=== PATIENT | male | born 2000 | race Hispanic/Latino ===

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

== ENCOUNTER 2021-05-27 09:41 | Inpatient (IN) | payer OTHER ==
[2021-05-27] MEDS ORDERED: FOSPHENYTOIN PE 500 MG/10 ML VIAL ONE (10:27)
[2021-05-27] MEDS ORDERED: NA CHLORIDE 0.9% 100 ML ONE (10:28)
[2021-05-27 10:30] LABS: Basophils % 0.2 % (0-1.3); Hematocrit 48.7 % (39.6-49.0); Lymphocytes % 7.3 % (15.3-44.8); MPV 8.6 fL (7.6-11.3); RBC Red Blood Cell Count 5.02 M/uL (4.33-5.43)
[2021-05-27 10:35] LABS: Protime INR 1.19
[2021-05-27] MEDS ORDERED: NA CHLORIDE 0.9% 1,000 ML ONE ×3 (10:38→20:47)
[2021-05-27 10:40] LABS: Barbiturates NEGATIVE (NEGATIVE); Benzodiazepines NEGATIVE (NEGATIVE); Cocaine NEGATIVE (NEGATIVE); METHAMPHETAM NEGATIVE (NEGATIVE); Methadone NEGATIVE (NEGATIVE); Opiates NEGATIVE (NEGATIVE); Phencyclidine NEGATIVE (NEGATIVE); THC Cannibis NEGATIVE (NEGATIVE)
--- NOTE | 2021-05-27 10:54 | RAD REPORT ---
EXAM DESCRIPTION: CT - Head Brain Wo Cont - 05/27/2021 10:43 am CLINICAL HISTORY: SEIZURE COMPARISON: Head Brain Wo Cont dated 02/25/2019; Head Brain Wo Cont dated 01/06/2019 TECHNIQUE: All CT scans are performed using dose optimization technique as appropriate and may inclu de automated exposure control or mA/KV adjustment according to patient size. FINDINGS: No intracranial hemorrhage, hydrocephalus or extra-axial fluid collection.No areas of brai n edema or evidence of midline shift. The paranasal sinuses and mastoids are clear. The calvarium is intact. IMPRESSION: No acute intracranial abnormality.
--- NOTE | 2021-05-27 11:04 | ER ---
Nurse's Notes [facility] Name: Sander Nunez Age: 20 yrs Sex: Male : 2000 Arrival Date: 05/27/2021 Time: 09:51 Bed 17 Private MD: Diagnosis: Epilepsy, unspecified, not intractable, with status epilepticus;Other psychoactive substance abuse-BENADRYL;Hypokalemia;Elevated white blood cell count;Acute kidney failure, unspecified-prerenal Presentation: 05/27 09:49 Risk Assessment: Do you want to hurt yourself or someone else? Patient reports no tc5 desire to harm self or others. Onset of symptoms was May 27, 2021 at 08:30. 09:49 Acuity: QUE 2 tc5 11:23 Chief complaint: EMS states: seizure witnessed by dad. Coronavirus screen: Vaccine tc5 status: Patient reports being unvaccinated. At this time, the client does not indicate any symptoms associated with coronavirus-19. Ebola Screen: No symptoms or risks identified at this time. 11:23 Method Of Arrival: EMS tc5 Triage Assessment: 11:34 General: Appears distressed, slender, well groomed, Behavior is cooperative, agitated, tc5 anxious, restless. Pain: Denies pain. Neuro: Seizure activity reported prior to arrival. Type of seizure: grand mal seizure. Patient is post-ictal at this time. Cardiovascular: ST on tele.. Respiratory: No deficits noted. GI: No deficits noted. : No deficits noted. Derm: No deficits noted. - Family history:: not pertinent. Screenin:01 Abuse screen: dad states pt does not want to harm himself, he just has trouble tc5 sleeping. states he was manic last night, but calmed down and played with his turtle, then dad woke up to pt seizing in the bathroom this am and called the ambulance. Assessment: 11:36 General: Appears At bedside evaluation of pt, Dad at bedside, pt begins to seize, staff tc5 assist called, give verbal orders, Terry RN assist with orders and medication admin, pt seized for approximately 2 min, 02 15 LPM NRB applied during seizure. Pt dad reports pt had Possibly half the bottle of OTC sleeping pills and one dose of powder asprin because the pt has ADHD and trouble sleeping. Pt dad further reports that pt has had seizure like this when he overdosed on a lot of nutmeg the spice. Pt bleeding from the tongue, appears he bit it during the seizure.. Pain: Denies pain. Vital Signs: 09:49 BP 159 / 111; Pulse 150; Resp 22; Temp 99.3; Pulse Ox 100% ; Weight 65.77 kg; Height 5 tc5 ft. 7 in. (170.18 cm); Pain 0/10; 10:00 BP 186 / 112; Pulse 153; Resp 8; tc5 10:15 BP 148 / 78; Pulse 135; Resp 12; Pulse Ox 100% 15 lpm ; tc5 11:00 BP 121 / 71; Pulse 110; Resp 15; Pulse Ox 100% 15 lpm ; tc5 11:45 BP 113 / 53; Pulse 106; Resp 16; Pulse Ox 98% ; tc5 09:49 Body Mass Index 22.71 (65.77 kg, 170.18 cm) tc5 ED Course: 09:51 Patient arrived in ED. cecil 09:51 Ryan Calzada MD is Attending Physician. cecil 10:11 Mary Carmen Gamez, RN is Primary Nurse. tc5 10:38 Ann cath inserted, using sterile technique, 16 Fr., by ma, balloon inflated, urine mh5 specimen collected. 10:38 Initial lab(s) drawn, by ED staff, sent to lab. Urine collected: Ann catheter mh5 specimen, clear, EKG done, by ED staff, reviewed by Ryan Calzada MD COVID swab sent to lab. Inserted saline lock: 20 gauge in right antecubital area, using aseptic technique. Blood collected. 10:39 Patient has correct armband on for positive identification. Placed in gown. Bed in low mh5 position. Call light in reach. Side rails up X2. Adult w/ patient. Warm blanket given. hall monitor on. Pulse ox on. NIBP on. 10:40 NT PRO-BNP Sent. mh5 10:41 Magnesium Sent. mh5 10:41 Liver (Hepatic) Function Sent. mh5 10:41 Basic Metabolic Panel Sent. mh5 10:41 Acetaminophen Sent. mh5 10:41 ETOH Level Sent. mh5 10:41 Basic Metabolic Panel Sent. mh5 10:41 CBC with Diff Sent. mh5 10:41 LFT's Sent. mh5 10:41 Magnesium Sent. mh5 10:41 NT PRO-BNP Sent. mh5 10:42 XRAY Chest (1 view) Sent. mh5 10:42 Troponin (emerg Dept Use Only) Sent. mh5 10:43 CT Head Brain wo Cont In Process Unspecified. EDMS 10:52 XRAY Chest (1 view) In Process Unspecified. EDMS 11:01 Filipe Garcia DO is Hospitalizing Provider. [facility] 11:34 Triage completed. tc5 05/28 01:44 Chem 7 Sent. wg Administered Medications: 05/27 09:59 Drug: Ativan (LORazepam) 2 mg Route: IVP; Site: right antecubital; oh 10:57 Follow up: Response: No adverse reaction; Marked relief of symptoms tc5 09:59 Drug: Fosphenytoin 1 grams Route: IVPB; Site: right antecubital; oh 10:56 Follow up: IV Status: Completed infusion; IV Intake: 100ml tc5 10:58 Drug: NS 0.9% 1000 ml Route: IV; Rate: 1 bolus; Site: right antecubital; tc5 17:44 Drug: Potassium Chloride 20 mEq Route: IV; Rate: per protocol; Site: right antecubital; tc5 17:45 Drug: NS 0.9% 1000 ml Route: IV; Rate: 1 bolus; Site: right antecubital; tc5 Intake: 10:56 IV: 100ml; Total: 100ml. tc5 Outcome: 11:03 Decision to Hospitalize by Provider. [facility] 05/29 02:00 Admitted to Med/surg accompanied by nurse, family with patient, via stretcher, room cc4 [id number], Report called to DEN Yip. 03:50 Patient left the ED. cc4 Signatures: Dispatcher [employer] Ryan Smith MD MD cha Martinez, Maria [facility] Shayne Obrien, DEN Zaida Hurt RN RN 4 Terry Youngblood RN RN ak Mary Carmen Gamez RN RN 5
--- NOTE | 2021-05-27 11:04 | EDPHYS ---
Physician Documentation [facility] Name: Sander Nunez Age: 20 yrs Sex: Male : 2000 Arrival Date: 05/27/2021 Time: 09:51 Bed 17 Private MD: CARA Physician Ryan Calzada HPI: 05/27 10:23 This 20 yrs old Male presents to ER via Unassigned with complaints of cecil seizures, on sleep aide. 10:23 The patient presents with a history of multiple seizures, a total of 2. Character of cecil seizure(s): Loss of consciousness: the patient experienced loss of consciousness, Motor activity: generalized, Incontinence: none, Apnea: the patient did not experience apnea, Circulation: the patient did not experience evidence of pulse disturbance. Seizure onset: just prior to arrival, this morning. Context: the seizure(s) was witnessed, by family, father. Seizure Hx: the patient has no previous seizure history. Associated injury: The patient did not suffer any apparent associated injury. EMS care: none. Current symptoms: confusion. The patient has not experienced similar symptoms in the past. - Family history:: not pertinent. ROS: 10:23 Constitutional: Negative for fever, chills, and weight loss, Eyes: Negative for injury, cecil pain, redness, and discharge, ENT: Negative for injury, pain, and discharge, Neck: Negative for injury, pain, and swelling, Respiratory: Negative for shortness of breath, cough, wheezing, and pleuritic chest pain, Abdomen/GI: Negative for abdominal pain, nausea, vomiting, diarrhea, and constipation, Back: Negative for injury and pain, : Negative for injury, bleeding, discharge, and swelling, MS/Extremity: Negative for injury and deformity, Skin: Negative for injury, rash, and discoloration, Psych: Negative for depression, anxiety, suicide ideation, homicidal ideation, and hallucinations, Allergy/Immunology: Negative for hives, rash, and allergies, Endocrine: Negative for neck swelling, polydipsia, polyuria, polyphagia, and marked weight changes, Hematologic/Lymphatic: Negative for swollen nodes, abnormal bleeding, and unusual bruising. 10:23 Cardiovascular: Positive for palpitations. 10:23 Neuro: Positive for seizure activity. Exam: 10:23 Constitutional: This is a well developed, well nourished patient who is awake, alert, cecil and in no acute distress. Head/Face: Normocephalic, atraumatic. Eyes: Pupils equal round and reactive to light, extra-ocular motions intact. Lids and lashes normal. Conjunctiva and sclera are non-icteric and not injected. Cornea within normal limits. Periorbital areas with no swelling, redness, or edema. ENT: Nares patent. No nasal discharge, no septal abnormalities noted. Tympanic membranes are normal and external auditory canals are clear. Oropharynx with no redness, swelling, or masses, exudates, or evidence of obstruction, uvula midline. Mucous membranes moist. Neck: Trachea midline, no thyromegaly or masses palpated, and no cervical lymphadenopathy. Supple, full range of motion without nuchal rigidity, or vertebral point tenderness. No Meningismus. Chest/axilla: Normal chest wall appearance and motion. Nontender with no deformity. No lesions are appreciated. Abdomen/GI: Soft, non-tender, with normal bowel sounds. No distension or tympany. No guarding or rebound. No evidence of tenderness throughout. Back: No spinal tenderness. No costovertebral tenderness. Full range of motion. Male : Normal genitalia with no discharge or lesions. Skin: Warm, dry with normal turgor. Normal color with no rashes, no lesions, and no evidence of cellulitis. MS/ Extremity: Pulses equal, no cyanosis. Neurovascular intact. Full, normal range of motion. Psych: Awake, alert, with orientation to person, place and time. Behavior, mood, and affect are within normal limits. 10:23 Cardiovascular: Rate: tachycardic, Rhythm: regular, Pulses: Pulses are 4+ in bilateral radial, brachial, femoral, popliteal, posterior tibial and and dorsalis pedis arteries.. Heart sounds: normal, Edema: is not appreciated, JVD: is not appreciated. 10:23 Neuro: Orientation: Not oriented to person, place, time, situation, Mentation: slow to respond, confused, Memory: unable to test, Cranial nerves: grossly normal, is grossly normal based on the patient's age, no acute changes, Cerebellar function: is grossly normal, is grossly normal based on the patient's age, no acute changes, Gait: not tested. seizure activity, grand mal type is displayed, is not currently displayed, but the patient is post-ictal. 10:38 ECG was reviewed by the Attending Physician. cecil 17:20 ECG was reviewed by the Attending Physician. cecil Vital Signs: 09:49 BP 159 / 111; Pulse 150; Resp 22; Temp 99.3; Pulse Ox 100% ; Weight 65.77 kg; Height 5 tc5 ft. 7 in. (170.18 cm); Pain 0/10; 10:00 BP 186 / 112; Pulse 153; Resp 8; tc5 10:15 BP 148 / 78; Pulse 135; Resp 12; Pulse Ox 100% 15 lpm ; tc5 11:00 BP 121 / 71; Pulse 110; Resp 15; Pulse Ox 100% 15 lpm ; tc5 11:45 BP 113 / 53; Pulse 106; Resp 16; Pulse Ox 98% ; tc5 09:49 Body Mass Index 22.71 (65.77 kg, 170.18 cm) tc5 MDM: 09:51 Patient medically screened. cecil 10:28 Differential diagnosis: cerebral vascular accident, drug overdose, cardiac arrhythmia, cecil seizure, TIA. Data reviewed: vital signs, nurses notes, lab test result(s), EKG, radiologic studies, CT scan, plain films. Data interpreted: quality assurance monitor final: rate is 126 beats/min, rhythm is regular, Pulse oximetry: on room air is 99 %. Test interpretation: by ED physician or midlevel provider: ECG, plain radiologic studies. Counseling: I had a detailed discussion with the patient and/or guardian regarding: the historical points, exam findings, and any diagnostic results supporting the discharge/admit diagnosis, lab results, radiology results, the need for further work-up and treatment in the hospital. 05/27 09:54 Order name: Basic Metabolic Panel cecil 05/27 09:54 Order name: CBC with Diff 05/27 09:54 Order name: LFT's cecil 05/27 09:54 Order name: Magnesium cecil 05/27 09:54 Order name: NT PRO-BNP cecil 05/27 09:54 Order name: PT-INR; Complete Time: 11:00 [facility] 05/27 09:54 Order name: Troponin (emerg Dept Use Only); Complete Time: 17:17 05/27 09:54 Order name: Acetaminophen; Complete Time: 17:17 cecil 05/27 09:54 Order name: ETOH Level; Complete Time: 11:00 [facility] 05/27 09:54 Order name: Ptt, Activated; Complete Time: 11:00 [facility] 05/27 09:54 Order name: Salicylate; Complete Time: 17:17 [facility] 05/27 09:54 Order name: Urine Drug Screen; Complete Time: 11:00 [facility] 05/27 09:54 Order name: Basic Metabolic Panel; Complete Time: 17:17 [facility]TX 05/27 09:54 Order name: CBC with Automated Diff; Complete Time: 11:00 [facility]TX 05/27 09:54 Order name: XRAY Chest (1 view); Complete Time: 17:17 [facility] 05/27 09:54 Order name: Liver (Hepatic) Function; Complete Time: 17:17 EDMS 05/27 09:54 Order name: Magnesium; Complete Time: 17:17 EDTX 05/27 09:54 Order name: NT PRO-BNP; Complete Time: 17:17 [facility]TX 05/27 09:55 Order name: CT Head Brain wo Cont; Complete Time: 11:00 [facility] 05/27 10:10 Order name: COVID-19 SARS RT PCR (Document "Date of Onset" if Symptomatic) [facility] 05/27 17:18 Order name: Chem 7 [facility] 05/27 19:07 Order name: Basic Metabolic Panel; Complete Time: 19:22 EDTX 05/28 05:42 Order name: CBC with Automated Diff EDTX 05/28 06:03 Order name: Comprehensive Metabolic Panel [facility]TX 05/28 06:03 Order name: T4 Free EDTX 05/28 06:03 Order name: Magnesium [facility]TX 05/28 06:03 Order name: Phenytoin (Dilantin) Level EDTX 05/28 06:03 Order name: Thyroid Stimulating Hormone EDTX 05/28 06:23 Order name: CKMB Creatine Kinase MB EDTX 05/28 15:49 Order name: Urine Dipstick-Ancillary EDTX 05/27 09:54 Order name: EKG; Complete Time: 09:55 [facility] 05/27 09:54 Order name: Cardiac monitoring; Complete Time: 10:42 [facility] 05/27 09:54 Order name: EKG - Nurse/Tech; Complete Time: 10:42 [facility] 05/27 09:54 Order name: IV Saline Lock; Complete Time: 10:42 [facility] 05/27 09:54 Order name: Labs collected and sent; Complete Time: 10:42 [facility] 05/27 09:54 Order name: O2 Per Protocol; Complete Time: 10:42 [facility] 05/27 09:54 Order name: O2 Sat Monitoring; Complete Time: 10:42 [facility] 05/27 09:54 Order name: Urine Dipstick-Ancillary (obtain specimen); Complete Time: 10:41 [facility] 05/27 09:55 Order name: Seizure Precautions; Complete Time: 10:40 [facility] 05/27 17:18 Order name: EKG; Complete Time: 17:19 cecil 05/27 17:18 Order name: EKG - Nurse/Tech; Complete Time: 17:44 [facility] 05/28 17:51 Order name: MRI EDMS EC:38 Rate is 129 beats/min. Rhythm is regular. QRS [place] is Normal. CT interval is normal. cecil QRS interval is normal. QT interval is normal. No Q waves. T waves are Normal. No ST changes noted. Clinical impression: Sinus tachycardia and No evidence of ischemia. Interpreted by me. Reviewed by me. 17:20 Rate is 122 beats/min. Rhythm is regular. QRS [place] is Normal. CT interval is normal. cecil QRS interval is normal. QT interval is normal. No Q waves. T waves are Normal. ST Segment is depressed in leads III, aVF, V3, V4, V5, V6. Clinical impression: NSR w/ Non-specific ST/T Changes and No evidence of ischemia. Interpreted by me. Reviewed by me. Administered Medications: 09:59 Drug: Ativan (LORazepam) 2 mg Route: IVP; Site: right antecubital; oh 10:57 Follow up: Response: No adverse reaction; Marked relief of symptoms tc5 09:59 Drug: Fosphenytoin 1 grams Route: IVPB; Site: right antecubital; oh 10:56 Follow up: IV Status: Completed infusion; IV Intake: 100ml tc5 10:58 Drug: NS 0.9% 1000 ml Route: IV; Rate: 1 bolus; Site: right antecubital; tc5 17:44 Drug: Potassium Chloride 20 mEq Route: IV; Rate: per protocol; Site: right antecubital; tc5 17:45 Drug: NS 0.9% 1000 ml Route: IV; Rate: 1 bolus; Site: right antecubital; tc5 Disposition Summary: 05/27/21 11:03 Hospitalization Ordered Hospitalization Status: Observation cecil Provider: Filipe Garcia cecil Condition: Fair cecil Problem: new cecil Symptoms: have improved cecil Bed/Room Type: Standard cecil Location: Telemetry/MedSurg (observation)(05/28/21 23:28) cg Room Assignment: [facility](05/28/21 23:28) Diagnosis - Epilepsy, unspecified, not intractable, with status epilepticus cecil - Other psychoactive substance abuse - BENADRYL cecil - Hypokalemia cecil - Elevated white blood cell count cecil - Acute kidney failure, unspecified - prerenal cecil Forms: - Medication Reconciliation Form cecil - SBAR form cecil Signatures: Dispatcher [employer] Ryan Smith MD MD cha Garcia, Cindy, RN RN Terry Youngblood RN DEN de Mary Carmen Gamez RN RN tc5 Corrections: (The following items were deleted from the chart) 21:19 11:03 Telemetry/MedSurg (observation) cecil cg 21:19 11:03 cecil cg 05/28 23:28 05/27 21:19 [facility] ER HOLD cg cg 05/28 23:28 05/27 21:19 ERHOLD- cg cg
--- NOTE | 2021-05-27 11:07 | RAD REPORT ---
EXAM DESCRIPTION: RAD - Chest Single View - 05/27/2021 10:52 am CLINICAL HISTORY: COUGH COMPARISON: CHEST PA AND LAT 2 VIEW dated 05/02/2012; ABDOMEN ACUTE SERIES dated 08/08/2010 FINDINGS: Lines: None. Lungs: No evidence of edema or pneumonia. Pleural: No significant pleural effusions or pneumothorax. Cardiac: The heart size is within normal limits. Bones: No acute fractures. Other: IMPRESSION: No acute cardiopulmonary disease.
[2021-05-27 11:41] LABS: ALT/SGPT 18 U/L (12-78); AST/SGOT 19 U/L (15-37); Albumin 5.7 g/dL (3.4-5.0); Alkaline Phosphatase 75 U/L (45-117); BUN Blood Urea Nitrogen 10 mg/dL (7-18); Bilirubin Direct 0.1 mg/dL (0-0.2); Bilirubin Total 0.3 mg/dL (0.2-1.0); Glucose Level 117 mg/dL (74-106); Magnesium 2.4 mg/dL (1.8-2.4); NT PRO-BNP 58 pg/mL (<125); Potassium 3.2 mmol/L (3.5-5.1); Protein, Total 8.8 g/dL (6.4-8.2); Sodium Level 144 mmol/L (136-145); Troponin (Emerg Dept Use Only) < 0.02 ng/mL (0.0-0.045)
[2021-05-27 11:45] LABS: Bicarbonate 12 mmol/L (21-32)
[2021-05-27 12:37] VITALS: BMI 22.7
--- NOTE | 2021-05-27 13:08 | P.HP ---
Certification for Inpatient Patient admitted to: Inpatient With expected LOS: >2 Midnights Patient will require the following post-hospital care: None Practitioner: I am a practitioner with admitting privileges, knowledge of patient current condition, hospital course, and medical plan of care. Services: Services provided to patient in accordance with Admission requirements found in Title 42 Section 412.3 of the Code of Federal Regulations Patient History Date of Service: 05/27/21 Primary Care Provider: none Reason for admission: Seizure History of Present Illness: 20-year-old male presented to the hospital with seizure. Most of the information came from the father. Father reports patient with major concussion at age 17 while playing football. He was seen by [facility] after that time. He has not followed up with anybody recently. He has not seen neurology recently. No evidence of significant seizure. He does report patient has difficulty sleeping and takes Benadryl. He is also been under a lot of stress including college work, losing his job last week. Father reports that he had taken some Benadryl and sleep aid overnight. He feels very lethargic this morning. Then he saw patient have a seizure. He was brought in by EMS. In the ER patient had another seizure. Patient required 2 mg Ativan. IV Dilantin was initiated. CT head unremarkable. Chest x-ray unremarkable. Urine drug screen negative. Alcohol level negative. Troponin unremarkable. White count 14, hemoglobin 16. Platelet count 316. Sodium 144, potassium 3.2. BUN of 10, creatinine 1.36 with a GFR of 86. Glucose 117. Patient admitted for treatment. Allergies No Known Allergies Allergy (Verified 05/02/12 15:38) Home medications list reviewed: Yes - Past Medical/Surgical History Diabetic: No -: History of severe brain concussion related to football -: Insomnia Past Surgical History: Patient denies surgical history Psychosocial/ Personal History: Patient lives at home with family - Family History Father -: Stroke - Social History Smoking Status: Never smoker Alcohol use: No CD- Drugs: No Caffeine use: No Place of Residence: Home Review of Systems is unable to be obtained Physical Examination - Vital Signs Temperature: 99.3 F Blood Pressure: 129/85 Pulse: 102 Respirations: 15 Pulse Ox (%): 99 - Studies Laboratory Data (last 24 hrs) 05/27/21 10:05: PT 13.7 H, INR 1.19, APTT 29.9 05/27/21 10:05: WBC 14.30 H, Hgb 16.0, Hct 48.7, Plt Count 316 05/27/21 10:05: Sodium 144, Potassium 3.2 L, BUN 10, Creatinine 1.36 H, Glucose 117 H, Magnesium 2.4, Total Bilirubin 0.3, AST 19, ALT 18, Alkaline Phosphatase 75 Assessment and Plan - Plan COVID: Negative Chest x-ray: COMPARISON: CHEST PA AND LAT 2 VIEW dated 05/02/2012; ABDOMEN ACUTE SERIES dated 08/08/2010 FINDINGS: Lines: None. Lungs: No evidence of edema or pneumonia. Pleural: No significant pleural effusions or pneumothorax. Cardiac: The heart size is within normal limits. Bones: No acute fractures. IMPRESSION: No acute cardiopulmonary disease. CT scan: COMPARISON: Head Brain Wo Cont dated 02/25/2019; Head Brain Wo Cont dated 01/06/2019 TECHNIQUE: All CT scans are performed using dose optimization technique as appropriate and may include automated exposure control or mA/KV adjustment according to patient size. FINDINGS: No intracranial hemorrhage, hydrocephalus or extra-axial fluid collection.No areas of brain edema or evidence of midline shift. The paranasal sinuses and mastoids are clear. The calvarium is intact. IMPRESSION: No acute intracranial abnormality. Physical Exam: GENERAL: Patient with increased somnolence. Patient had received 2 mg of Ativan due to seizure VITAL SIGNS: Reviewed HEENT: No laceration. Head atraumatic NECK: Supple. No carotid bruits. No lymphadenopathy or thyromegaly. LUNGS: Clear to auscultation. No crackles or wheezes are heard. HEART: Regular rate and rhythm, no appreciable gallops, rubs, murmurs or extra heart sounds ABDOMEN: Soft, nontender, and nondistended. Positive bowel sounds. No hepatosplenomegaly was noted. EXTREMITIES: Without any cyanosis, clubbing, rash, lesions or peripheral edema. NEUROLOGIC: Patient with increased somnolence SKIN: Normal color, turgor and temperature. No ulcerations or rashes noted. Impression: Acute seizure with history of distant severe brain concussion Insomnia Plan: Patient admitted for further evaluation and treatment. Patient will remain in ICU. Continue aspiration and seizure precaution. Case discussed in detail with neurology. We will continue with IV Dilantin 100 mg 3 times a day. Will transition to Dilantin 300 mg at bedtime if patient more alert and able to take good oral intake. Recheck Dilantin level tomorrow. Continue with IV fluids. Continue to monitor electrolytes. Electrolyte protocol in place. Will provide medication for acute seizures if required. We will continue to monitor closely. Reassess within the next 24 hours. Code Status: Full Code DVT prophylaxis: Lovenox Advanced Care Planning-30 minutes: Home at discharge Discharge Plan: Home Plan to discharge in: 48 Hours - Advance Directives Does patient have a Living Will: No Does patient have a Durable POA for Healthcare: No - Code Status/Comfort Care Code Status Assessed: Yes (Full code) Time Spent Managing Pts Care (In Minutes): 55
[2021-05-27] MEDS ORDERED: ACETAMINOPHEN 500 MG TAB PO PRN (14:48)
[2021-05-27] MEDS ORDERED: ONDANSETRON 4 MG/2 ML VIAL IV PRN (14:48)
[2021-05-27] MEDS ORDERED: D5 0.45 NS 1,000 ML IV SCH (14:48)
[2021-05-27] MEDS: LORazepam 2 MG/ML VIAL IV PRN ×3 (14:51→20:25)
[2021-05-27] MEDS ORDERED: LORazepam 2 MG/ML VIAL ONE ×7 (15:07→23:25)
[2021-05-27] MEDS: PHENYTOIN NA 100 MG/2 ML IV SCH (15:26)
[2021-05-27] MEDS ORDERED: KCL 20 MEQ/100 mL IVPB 20 MEQ/100 ML BAG IV ONE (17:46)
[2021-05-27 18:42] LABS: BUN Blood Urea Nitrogen 5 mg/dL (7-18); Bicarbonate 25 mmol/L (21-32); Glucose Level 92 mg/dL (74-106); Potassium 3.5 mmol/L (3.5-5.1); Sodium Level 141 mmol/L (136-145)
[2021-05-27] MEDS: D5 0.45 NS 1,000 ML IV SCH (20:29)
[2021-05-27] MEDS ORDERED: LORazepam 2 MG/ML VIAL IV ONE ×3 (21:43→23:04)
[2021-05-28] MEDS ORDERED: LORazepam 2 MG/ML VIAL IV ONE ×2 (00:22→05:25)
[2021-05-28] MEDS ORDERED: LORazepam 2 MG/ML VIAL ONE ×2 (00:56→05:45)
[2021-05-28] MEDS: PHENYTOIN NA 100 MG/2 ML IV SCH ×3 (01:00→17:00)
[2021-05-28] MEDS ORDERED: D5 0.45 NS 1,000 ML IV ONE ×3 (01:01→21:09)
[2021-05-28] MEDS: D5 0.45 NS 1,000 ML IV SCH ×3 (04:29→20:29)
[2021-05-28 05:35] LABS: Absolute Lymphocytes (CBC) 0.9 K/uL (0.7-4.9); Basophils % 0.4 % (0-1.3); Hematocrit 42.9 % (39.6-49.0); Lymphocytes % 16.7 % (15.3-44.8); MPV 7.9 fL (7.6-11.3); RBC Red Blood Cell Count 4.58 M/uL (4.33-5.43)
[2021-05-28 06:01] LABS: ALT/SGPT 28 U/L (12-78); AST/SGOT 130 U/L (15-37); Albumin 4.3 g/dL (3.4-5.0); Alkaline Phosphatase 63 U/L (45-117); BUN Blood Urea Nitrogen 5 mg/dL (7-18); Bicarbonate 26 mmol/L (21-32); Bilirubin Total 0.6 mg/dL (0.2-1.0); Glucose Level 110 mg/dL (74-106); Magnesium 2.1 mg/dL (1.8-2.4); Phenytoin (Dilantin) Level 14.4 ug/mL (10.0-20.0); Potassium 3.2 mmol/L (3.5-5.1); Protein, Total 6.8 g/dL (6.4-8.2); Sodium Level 143 mmol/L (136-145)
--- NOTE | 2021-05-28 06:20 | P.PN ---
Subjective Date of Service: 05/28/21 Primary Care Provider: none Chief Complaint: Seizure Subjective: Other (Patient required medication last night for agitation. Patient had some hallucinations. This may be related to Benadryl overdose. Poison control was called last night. Continue with monitoring and benzodiazepine.) Physical Examination - Vital Signs Temperature: 98.1 F Blood Pressure: 136/80 Pulse: 92 Respirations: 18 Pulse Ox (%): 98 - Studies Laboratory Data (last 24 hrs) 05/27/21 10:05: PT 13.7 H, INR 1.19, APTT 29.9 05/27/21 10:05: WBC 14.30 H, Hgb 16.0, Hct 48.7, Plt Count 316 05/27/21 10:05: Sodium 144, Potassium 3.2 L, BUN 10, Creatinine 1.36 H, Glucose 117 H, Magnesium 2.4, Total Bilirubin 0.3, AST 19, ALT 18, Alkaline Phosphatase 75 Assessment & Plan Discharge Plan: Home Plan to discharge in: 72 Hours Physician Review Additional Text: COVID: Negative Chest x-ray: COMPARISON: CHEST PA AND LAT 2 VIEW dated 05/02/2012; ABDOMEN ACUTE SERIES dated 08/08/2010 FINDINGS: Lines: None. Lungs: No evidence of edema or pneumonia. Pleural: No significant pleural effusions or pneumothorax. Cardiac: The heart size is within normal limits. Bones: No acute fractures. IMPRESSION: No acute cardiopulmonary disease. CT scan: COMPARISON: Head Brain Wo Cont dated 02/25/2019; Head Brain Wo Cont dated 01/06/2019 TECHNIQUE: All CT scans are performed using dose optimization technique as appropriate and may include automated exposure control or mA/KV adjustment according to patient size. FINDINGS: No intracranial hemorrhage, hydrocephalus or extra-axial fluid collection.No areas of brain edema or evidence of midline shift. The paranasal sinuses and mastoids are clear. The calvarium is intact. IMPRESSION: No acute intracranial abnormality. Physical Exam: GENERAL: Increased somnolence noted. No significant agitation. Controlled with medication VITAL SIGNS: Reviewed HEENT: No laceration. Head atraumatic NECK: Supple. No carotid bruits. No lymphadenopathy or thyromegaly. LUNGS: Clear to auscultation. No crackles or wheezes are heard. HEART: Regular rate and rhythm, no appreciable gallops, rubs, murmurs or extra heart sounds ABDOMEN: Soft, nontender, and nondistended. Positive bowel sounds. No hepatosplenomegaly was noted. EXTREMITIES: Without any cyanosis, clubbing, rash, lesions or peripheral edema. NEUROLOGIC: Patient with increased somnolence SKIN: Normal color, turgor and temperature. No ulcerations or rashes noted. Impression: Acute seizure with history of distant severe brain concussion complicated with possible Benadryl overdose Insomnia Plan: Poison control was called last night due to possible Benadryl overdose. Patient remained stable. Continue benzodiazepine for agitation. Aspiration and seizure precaution in place. Patient remains on IV Dilantin. Will transition to oral Dilantin 300 mg at bedtime once the patient is able to take good oral intake. Will monitor closely. Will discuss with neurology. Dilantin level 14. Continue to monitor and assess. Code Status: Full Code DVT prophylaxis: Lovenox Advanced Care Planning-30 minutes: Home at discharge Time Spent Managing Pts Care (In Minutes): 55
[2021-05-28] MEDS ORDERED: KCL 20 MEQ/100 mL IVPB 20 MEQ/100 ML BAG IV ONE ×2 (06:42→09:34)
[2021-05-28] MEDS: KCL 20 MEQ/100 mL IVPB 20 MEQ/100 ML BAG IV SCH ×2 (07:00→09:00)
[2021-05-28] MEDS: ENOXAPARIN 40 MG/0.4 ML SQ SCH (09:00)
[2021-05-28] MEDS ORDERED: FOLIC ACID 1 MG in NA CHLORIDE 0.9% 50 ML IV SCH (09:00)
[2021-05-28] MEDS ORDERED: FOLIC ACID 5 MG/ML VIAL IVP SCH (09:00)
[2021-05-28] MEDS ORDERED: THIAMINE 200 MG/2 ML INJ IVP SCH (09:00)
[2021-05-28] MEDS ORDERED: ENOXAPARIN 40 MG/0.4 ML SQ ONE (09:34)
[2021-05-28] MEDS ORDERED: THIAMINE 200 MG/2 ML INJ ONE (11:08)
[2021-05-28 15:49] LABS: Urine Blood Trace-lysed (Negative); Urine Glucose Negative (Negative); Urine Protein Negative (Negative); Urine Specific Gravity 1.025 (1.005-1.030); Urine pH 6.5 (5.0-7.0)
--- NOTE | 2021-05-28 17:50 | RAD REPORT ---
EXAM DESCRIPTION: MRI - Brain W/Wo Cont - 05/28/2021 5:39 pm CLINICAL HISTORY: seizure COMPARISON: No comparisons TECHNIQUE: Sagittal T1-weighted images were obtained along with PD/heavily T2-weighted and T2-FLAIR images. Axial DWI and ADC mapping sequences were also obtained along with coronal heavily T2-weighted images were obtained. Contrast was administered. FINDINGS: No intracranial hemorrhage, mass or acute infarction. There is no edema or shift of midlin e structures. No extra-axial fluid collections. Signal voids are seen as a normal finding in the ana r intracranial vessels. No significant white matter disease. No abnormal enhancement. Mastoid air cells and paranasal sinuses are clear. IMPRESSION: No acute intracranial abnormality. No abnormal enhancement. No acute infarct.
--- NOTE | 2021-05-28 22:13 | CON ---
Reason For Consultation: Consultation was called because of new onset seizures. History Of Present Illness: Mr. Nunez is a 20-year-old right-handed patient with history o f severe brain concussion while playing football; however, he was left with no residual deficits and had done well. His father who was in the room provided information. The patient recently lost his j ob where he worked 40 hours a week and he was in school 20 hours a week and was very angry and upset about that. He apparently took Benadryl for sleep, not sure how much, but the next morning, he woke up and reportedly in the bathroom had tonic colonic activity with tongue biting and his father said h e rested him on his left side and he was trying to make him "not swallow his tongue." The event last ed about 2 minutes and he was brought back to the hospital where he apparently had a second episode. He was given a load of fosphenytoin and maintained on 100 mg 3 times a day. Blood level today is [address] scan showed no acute ischemic or hemorrhagic changes. Blood work initially showed e levated white blood cell count of 14.3 with 88.2% neutrophils and today it is completely normal at 5. 4, 70.7% neutrophils consistent with the patient having had a seizure. Furthermore, he has slightly elevated AST of 130. No evidence of a rhabdomyolysis. He did have a very low carbon dioxide when he was earlier in the hospital about 12. It is now normal at 26. Potassium was low at 3.2, was transi ently elevated at 3.5 and 3.2 today. Creatinine showed dehydration of 1.36, now 0.93, glucose slight ly elevated at 117, after hydration 90 to 110. Calcium slightly low at 7.9. Thyroid function is nor mal. Urinalysis showed a trace of lysed blood. His Dilantin and fosphenytoin level were therapeutic at 14.4. COVID-19 test was negative. Chest x-ray showed no acute issues. No acute pulmonary disea se. Past Medical History: No significant past medical history aside from the concussion playing football . Medications: None. Allergies: NONE. Family History: Stroke in father. No seizures. Social History: No alcohol, tobacco, or IV drug use. Review of Systems: The patient is right now sedated. He received Ativan and a load of fosphenytoin and is somewhat slee py. Physical Examination: Vital Signs: Blood pressure 107/68, pulse 83, respiratory rate 14, temperature 98.1, oxygen saturati on 99% on room air, weight 145 pounds, height 5 feet 7 inches, BMI 22.7. General: Mr. Nunez is in bed. He is asleep, received Dilantin and benzodiazepine. He is otherwise normocephalic, atraumatic. Sclerae anicteric. Oropharynx is moist. Neck: Supple. Chest: Clear. Heart: Regular. Extremities: Show no significant edema, clubbing, cyanosis. Neurologic: He is sedated. He does not have any facial asymmetry. Tone is equal in upper and lower extremities. Unable to assess sensation, coordination, strength, or gait. Assessment: Mr. Nunez is a 20-year-old patient with new onset seizure, remote history of severe head trauma. Head CT scan is negative. He does not have evidence of ongoing infection, cardiac problem, or pulmonary issue. Plan: 1.Hold antiepileptic medication. 2.At some point, perhaps after discharge, at least routine electroencephalogram. 3.Brain MRI without and with contrast, epilepsy protocol. 4.Patient should have 8 hours restorative sleep at night. 5.He should engage in at least 30 minutes of brisk exercise at physical activity with heart rate nora vated, so that he is sweating but can carry a winded conversation. 6.Should work on stress reduction techniques. 7.May see a psychiatrist. 8.He should follow up in Dr. Morton's clinic in 1 month. ROMINA/CT Voice ID: [id number] Report ID: [id number]
[2021-05-29] MEDS: PHENYTOIN NA 100 MG/2 ML IV SCH (01:00)
[2021-05-29] MEDS: D5 0.45 NS 1,000 ML IV SCH (03:47)
--- NOTE | 2021-05-29 06:06 | P.PN ---
Subjective Date of Service: 05/29/21 Primary Care Provider: none Chief Complaint: Seizure Subjective: Improving, Doing well Physical Examination - Vital Signs Temperature: 98.3 F Blood Pressure: 119/69 Pulse: 88 Respirations: 16 Pulse Ox (%): 98 Assessment & Plan Discharge Plan: Home Plan to discharge in: 24 Hours Physician Review Additional Text: COVID: Negative Chest x-ray: COMPARISON: CHEST PA AND LAT 2 VIEW dated 05/02/2012; ABDOMEN ACUTE SERIES dated 08/08/2010 FINDINGS: Lines: None. Lungs: No evidence of edema or pneumonia. Pleural: No significant pleural effusions or pneumothorax. Cardiac: The heart size is within normal limits. Bones: No acute fractures. IMPRESSION: No acute cardiopulmonary disease. CT scan: COMPARISON: Head Brain Wo Cont dated 02/25/2019; Head Brain Wo Cont dated 01/06/2019 TECHNIQUE: All CT scans are performed using dose optimization technique as appropriate and may include automated exposure control or mA/KV adjustment according to patient size. FINDINGS: No intracranial hemorrhage, hydrocephalus or extra-axial fluid collection.No areas of brain edema or evidence of midline shift. The paranasal sinuses and mastoids are clear. The calvarium is intact. IMPRESSION: No acute intracranial abnormality. MRI Brain: COMPARISON: No comparisons TECHNIQUE: Sagittal T1-weighted images were obtained along with PD/heavily T2- weighted and T2-FLAIR images. Axial DWI and ADC mapping sequences were also obtained along with coronal heavily T2-weighted images were obtained. Contrast was administered. FINDINGS: No intracranial hemorrhage, mass or acute infarction. There is no edema or shift of midline structures. No extra-axial fluid collections. Signal voids are seen as a normal finding in the major intracranial vessels. No significant white matter disease. No abnormal enhancement. Mastoid air cells and paranasal sinuses are clear. IMPRESSION: No acute intracranial abnormality. No abnormal enhancement. No acute infarct. Physical Exam: GENERAL: Overall improved. Patient near baseline. VITAL SIGNS: Reviewed HEENT: No laceration. Head atraumatic NECK: Supple. No carotid bruits. No lymphadenopathy or thyromegaly. LUNGS: Clear to auscultation. No crackles or wheezes are heard. HEART: Regular rate and rhythm, no appreciable gallops, rubs, murmurs or extra heart sounds ABDOMEN: Soft, nontender, and nondistended. Positive bowel sounds. No hepatosplenomegaly was noted. EXTREMITIES: Without any cyanosis, clubbing, rash, lesions or peripheral edema. NEUROLOGIC: Patient with increased somnolence SKIN: Normal color, turgor and temperature. No ulcerations or rashes noted. Impression: Acute seizure with history of distant severe brain concussion complicated with possible Benadryl overdose Insomnia Plan: Patient has done well. Case discussed at length with neurology yesterday. MRI seizure protocol unremarkable. Patient remains on oral Dilantin. Discontinue IV fluids. Encourage oral intake. Will have physical therapy and Occupational Therapy evaluate patient. If doing well will consider probably discharge as early as today if not tomorrow. Will discuss with neurology about plan of care. Neurology had recommended Dilantin 300 mg at bedtime with seizure precaution at discharge. Will need to verify if this will still be the plan of care as seizure may be related to Benadryl overdose. Patient with history of distant severe brain concussion. Case discussed at length with father. We will continue to reassess. Code Status: Full Code DVT prophylaxis: Lovenox Advanced Care Planning-30 minutes: Home at discharge Time Spent Managing Pts Care (In Minutes): 55
[2021-05-29] MEDS ORDERED: D5 0.45 NS 1,000 ML IV SCH (07:00)
[2021-05-29] MEDS ORDERED: INFLUENZA VACCINE (for 6+ mo) 0.5 ML DOSE IMVAC ONE (08:00)
[2021-05-29] MEDS: ENOXAPARIN 40 MG/0.4 ML SQ SCH (08:36)
[2021-05-29] MEDS: THIAMINE HCL 100 MG TABLET PO SCH (08:36)
[2021-05-29] MEDS: FOLIC ACID 1 MG TABLET PO SCH (08:36)
[2021-05-29 09:41] VITALS: O2SAT 99
--- NOTE | 2021-05-29 11:47 | EKG ---
Test Date: 2021-05-27 Test Time: 17:16:43 Trolley Cleaner: ARIC MEASUREMENT RESULTS: Intervals: Rate: 122 NE: 150 QRSD: 90 QT: 334 QTc: 475 [place]: P: 74 NE: 150 QRS: 71 T: -26 INTERPRETIVE STATEMENTS: Sinus tachycardia ST & T wave abnormality, consider inferior ischemia Abnormal ECG Compared to ECG 05/27/2021 10:29:16 ST (T wave) deviation now present Possible ischemia now present Electronically Signed On 05-29-21 11:44:45 CDT by Sachin Currie
--- NOTE | 2021-05-29 11:49 | EKG ---
Test Date: 2021-05-27 Test Time: 10:29:16 Barber Apprentice: ARIC MEASUREMENT RESULTS: Intervals: Rate: 129 KS: 140 QRSD: 92 QT: 316 QTc: 462 [place]: P: 76 KS: 140 QRS: 72 T: 21 INTERPRETIVE STATEMENTS: Sinus tachycardia Otherwise normal ECG Compared to ECG 02/24/2019 23:46:22 Sinus rhythm no longer present Sinus arrhythmia no longer present ST (T wave) deviation no longer present Electronically Signed On 05-29-21 11:45:19 CDT by Sachin Currie
[2021-05-29] MEDS ORDERED: PHENYTOIN ER 100 MG CAP PO SCH (21:00)
--- NOTE | 2021-05-30 06:05 | P.PN ---
Subjective Date of Service: 05/30/21 Primary Care Provider: none Chief Complaint: Seizure Subjective: Improving, Other (Patient ambulating well) Physical Examination - Vital Signs Temperature: 97.7 F Blood Pressure: 115/65 Pulse: 88 Respirations: 20 Pulse Ox (%): 95 Assessment & Plan Discharge Plan: Home Plan to discharge in: 24 Hours Physician Review Additional Text: COVID: Negative Chest x-ray: COMPARISON: CHEST PA AND LAT 2 VIEW dated 05/02/2012; ABDOMEN ACUTE SERIES dated 08/08/2010 FINDINGS: Lines: None. Lungs: No evidence of edema or pneumonia. Pleural: No significant pleural effusions or pneumothorax. Cardiac: The heart size is within normal limits. Bones: No acute fractures. IMPRESSION: No acute cardiopulmonary disease. CT scan: COMPARISON: Head Brain Wo Cont dated 02/25/2019; Head Brain Wo Cont dated 01/06/2019 TECHNIQUE: All CT scans are performed using dose optimization technique as appropriate and may include automated exposure control or mA/KV adjustment according to patient size. FINDINGS: No intracranial hemorrhage, hydrocephalus or extra-axial fluid collection.No areas of brain edema or evidence of midline shift. The paranasal sinuses and mastoids are clear. The calvarium is intact. IMPRESSION: No acute intracranial abnormality. MRI Brain: COMPARISON: No comparisons TECHNIQUE: Sagittal T1-weighted images were obtained along with PD/heavily T2- weighted and T2-FLAIR images. Axial DWI and ADC mapping sequences were also obtained along with coronal heavily T2-weighted images were obtained. Contrast was administered. FINDINGS: No intracranial hemorrhage, mass or acute infarction. There is no edema or shift of midline structures. No extra-axial fluid collections. Signal voids are seen as a normal finding in the major intracranial vessels. No significant white matter disease. No abnormal enhancement. Mastoid air cells and paranasal sinuses are clear. IMPRESSION: No acute intracranial abnormality. No abnormal enhancement. No acute infarct. Physical Exam: GENERAL: Overall improved. Patient near baseline. VITAL SIGNS: Reviewed HEENT: No laceration. Head atraumatic NECK: Supple. No carotid bruits. No lymphadenopathy or thyromegaly. LUNGS: Clear to auscultation. No crackles or wheezes are heard. HEART: Regular rate and rhythm, no appreciable gallops, rubs, murmurs or extra heart sounds ABDOMEN: Soft, nontender, and nondistended. Positive bowel sounds. No hepatosplenomegaly was noted. EXTREMITIES: Without any cyanosis, clubbing, rash, lesions or peripheral edema. NEUROLOGIC: Patient with increased somnolence SKIN: Normal color, turgor and temperature. No ulcerations or rashes noted. Impression: Acute seizure with history of distant severe brain concussion complicated with possible Benadryl overdose Insomnia Plan: Patient doing well today. We will plan for discharge today. Patient will continue with Dilantin 300 mg at bedtime and folic acid. No further use of Benadryl. Follow-up with neurology within 1 to 2 weeks. Seizure precautions to be continued. Code Status: Full Code DVT prophylaxis: Lovenox Advanced Care Planning-30 minutes: Home at discharge Time Spent Managing Pts Care (In Minutes): 55
[2021-05-30] MEDS: THIAMINE HCL 100 MG TABLET PO SCH (10:22)
[2021-05-30] MEDS: FOLIC ACID 1 MG TABLET PO SCH (10:22)
[2021-05-30] MEDS: ENOXAPARIN 40 MG/0.4 ML SQ SCH (10:23)
--- NOTE | 2021-05-30 11:56 | P.DS ---
Admission Date: 05/27/21 Discharge Date: 05/30/21 Primary Care Provider: none Disposition: ROUTINE DISCHARGE Discharge Condition: GOOD Reason for Admission: Seizure Consultations: Neurology-Dr. Morton Procedures: COVID: Negative Chest x-ray: COMPARISON: CHEST PA AND LAT 2 VIEW dated 05/02/2012; ABDOMEN ACUTE SERIES dated 08/08/2010 FINDINGS: Lines: None. Lungs: No evidence of edema or pneumonia. Pleural: No significant pleural effusions or pneumothorax. Cardiac: The heart size is within normal limits. Bones: No acute fractures. IMPRESSION: No acute cardiopulmonary disease. CT scan: COMPARISON: Head Brain Wo Cont dated 02/25/2019; Head Brain Wo Cont dated 01/06/2019 TECHNIQUE: All CT scans are performed using dose optimization technique as appropriate and may include automated exposure control or mA/KV adjustment according to patient size. FINDINGS: No intracranial hemorrhage, hydrocephalus or extra-axial fluid collection.No areas of brain edema or evidence of midline shift. The paranasal sinuses and mastoids are clear. The calvarium is intact. IMPRESSION: No acute intracranial abnormality. MRI Brain: COMPARISON: No comparisons TECHNIQUE: Sagittal T1-weighted images were obtained along with PD/heavily T2- weighted and T2-FLAIR images. Axial DWI and ADC mapping sequences were also obtained along with coronal heavily T2-weighted images were obtained. Contrast was administered. FINDINGS: No intracranial hemorrhage, mass or acute infarction. There is no edema or shift of midline structures. No extra-axial fluid collections. Signal voids are seen as a normal finding in the major intracranial vessels. No significant white matter disease. No abnormal enhancement. Mastoid air cells and paranasal sinuses are clear. IMPRESSION: No acute intracranial abnormality. No abnormal enhancement. No acute infarct. Medical problem list: Acute seizure with history of distant severe brain concussion complicated with possible Benadryl overdose Insomnia Brief History of Present Illness: 20-year-old male presented to the hospital with seizure. Most of the information came from the father. Father reports patient with major concussion at age 17 while playing football. He was seen by [place] children after that time. He has not followed up with anybody recently. He has not seen neurology recently. No evidence of significant seizure. He does report patient has difficulty sleeping and takes Benadryl. He is also been under a lot of stress including college work, losing his job last week. Father reports that he had taken some Benadryl and sleep aid overnight. He feels very lethargic this morning. Then he saw patient have a seizure. He was brought in by EMS. In the ER patient had another seizure. Patient required 2 mg Ativan. IV Dilantin was initiated. CT head unremarkable. Chest x-ray unremarkable. Urine drug screen negative. Alcohol level negative. Troponin unremarkable. White count 14, hemoglobin 16. Platelet count 316. Sodium 144, potassium 3.2. BUN of 10, creatinine 1.36 with a GFR of 86. Glucose 117. Patient admitted for treatment. Hospital Course: Patient presented with acute seizure. Patient required hospitalization. Patient given Ativan in the emergency room along with IV Dilantin. Patient with history of distant severe brain concussion treated by [facility]. There was also some question of possible Benadryl overdose. During the course of his stay his condition improved. Patient was able to be weaned off IV Dilantin and to oral Dilantin. Patient was seen and evaluated by neurology. CT head unremarkable. Brain MRI unremarkable. The patient continued to do well. Dilantin level within appropriate range. Patient ambulating well without difficulty. No further seizures identified. Case discussed in detail with neurology. At discharge the patient will continue with Dilantin 300 mg at bedtime and folic acid 1 mg daily. No further use of Benadryl or sleep aids. Patient will continue with seizure precautions including no driving, swimming, operating heavy equipment, or being on anything elevated above ground without support like ladders. Recommend follow-up with neurology within 1 to 2 weeks to follow-up his hospitalization. Recommend to recheck Dilantin level within 1 week. Recommend follow-up with PCP to follow-up this hospitalization. Patient will likely require EEG as an outpatient to further evaluate. Neurology to consider weaning off medication after 3 months. Case discussed in detail with patient and father. Vital Signs/Physical Exam: Temp Pulse Resp BP Pulse Ox 97.7 F 88 20 115/65 95 05/30/21 11:50 05/30/21 11:50 05/30/21 11:50 05/30/21 11:50 05/30/21 11:50 General: Alert, In no apparent distress, Oriented x3, Cooperative HEENT: Atraumatic Neck: Supple Respiratory: Clear to auscultation bilaterally, Normal air movement Cardiovascular: Normal pulses, Regular rate/rhythm Gastrointestinal: Normal bowel sounds, No tenderness, No masses, No rebound, No guarding Musculoskeletal: No erythema, No tenderness, No warmth Integumentary: No tenderness/swelling, No erythema, No warmth, No cyanosis Neurological: Normal speech, Normal strength at 5/5 x4 extr, Normal tone, Normal affect Laboratory Data at Discharge: WBC 5.40 K/uL (4.3-10.9) D 05/28/21 05:00 Hgb 14.7 g/dL (13.6-17.9) 05/28/21 05:00 Hct 42.9 % (39.6-49.0) 05/28/21 05:00 Plt Count 237 K/uL (152-406) D 05/28/21 05:00 PT 13.7 SECONDS (9.5-12.5) H 05/27/21 10:05 INR 1.19 05/27/21 10:05 APTT 29.9 SECONDS (24.3-36.9) 05/27/21 10:05 Sodium 143 mmol/L (136-145) 05/28/21 05:00 Potassium 3.2 mmol/L (3.5-5.1) L 05/28/21 05:00 BUN 5 mg/dL (7-18) L 05/28/21 05:00 Creatinine 0.93 mg/dL (0.55-1.3) 05/28/21 05:00 Glucose 110 mg/dL (74-106) H 05/28/21 05:00 Magnesium 2.1 mg/dL (1.8-2.4) 05/28/21 05:00 Total Bilirubin 0.6 mg/dL (0.2-1.0) 05/28/21 05:00 AST 130 U/L (15-37) H D 05/28/21 05:00 ALT 28 U/L (12-78) 05/28/21 05:00 Alkaline Phosphatase 63 U/L (45-117) 05/28/21 05:00 Home Medications: Folic Acid 1 mg PO DAILY #90 tablet 05/30/21 Phenytoin Sodium Extended [Dilantin] 300 mg PO BEDTIME #90 capsule 05/30/21 New Medications: Phenytoin Sodium Extended [Dilantin] 300 mg PO BEDTIME #90 capsule Folic Acid 1 mg PO DAILY #90 tablet Physician Discharge Instructions: Patient presented with acute seizure. Patient required hospitalization. Patient given Ativan in the emergency room along with IV Dilantin. Patient with history of distant severe brain concussion treated by [facility]. There was also some question of possible Benadryl overdose. During the course of his stay his condition improved. Patient was able to be weaned off IV Dilantin and to oral Dilantin. Patient was seen and evaluated by neurology. CT head unremarkable. Brain MRI unremarkable. The patient continued to do well. Dilantin level within appropriate range. Patient ambulating well without difficulty. No further seizures identified. Case discussed in detail with neurology. At discharge the patient will continue with Dilantin 300 mg at bedtime and folic acid 1 mg daily. No further use of Benadryl or sleep aids. Patient will continue with seizure precautions including no driving, swimming, operating heavy equipment, or being on anything elevated above ground without support like ladders. Recommend follow-up with neurology within 1 to 2 weeks to follow-up his hospitalization. Recommend to recheck Dilantin level within 1 week. Recommend follow-up with PCP to follow-up this hospitalization. Patient will likely require EEG as an outpatient to further evaluate. Neurology to consider weaning off medication after 3 months. Case discussed in detail with patient and father. Diet: AHA Activity: Ad armin Followup: NONE,NONE [Primary Care Provider] - Time spent managing pt's care (in minutes): 55
[2021-05-30 12:32] VITALS: BP 134/68; TEMP 98.8
== END 2021-05-30 13:15 | disposition home or self-care (01) | DRG 918 ==
LOC: ER 09:41 → ERHOLD 12:02 → 2ND 05-29 00:50
PROVIDERS: ADMIT Family Medicine; ATTEND Family Medicine
DX: T45.0X1A Poisoning by antiallergic and antiemetic drugs, accidental (unintentional), initial encounter (principal); G40.801 Other epilepsy, not intractable, with status epilepticus; N17.9 Acute kidney failure, unspecified; R44.3 Hallucinations, unspecified; G47.00 Insomnia, unspecified; E87.6 Hypokalemia; F19.10 Other psychoactive substance abuse, uncomplicated; D72.829 Elevated white blood cell count, unspecified; Z79.899 Other long term (current) drug therapy; Z20.822 Contact with and (suspected) exposure to COVID-19
CPT/HCPCS: 36415; 51702; 70450; 70553; 71045; 80048; 80053; 80076; 80185; 80307; 80320; 80329; 81003; 82553; 83735; 83880; 84439; 84443; 84484; 85025; 85610; 85730; 93005; 96365; 96375; 97116; 97161; 99285; A9577; J1165; J1650; J3411; J3480; J7030; J7799; Q2009; U0003

== ENCOUNTER 2021-05-31 21:02 | Emergency (ER) | payer OTHER ==
[2021-05-31] MEDS ORDERED: NA CHLORIDE 0.9% 1,000 ML ONE (21:58)
[2021-05-31] MEDS ORDERED: DIPHENHYDRAMINE 50 MG/ML VIAL ONE (21:58)
[2021-05-31] MEDS ORDERED: FAMOTIDINE 20 MG/2 ML VIAL IV ONE (21:58)
[2021-05-31 22:11] LABS: Basophils % 0.7 % (0-1.3); Hematocrit 44.2 % (39.6-49.0); Lymphocytes % 17.7 % (15.3-44.8); MPV 8.4 fL (7.6-11.3); RBC Red Blood Cell Count 4.82 M/uL (4.33-5.43)
[2021-05-31 22:17] LABS: Protime INR 1.05
[2021-05-31 22:27] LABS: ALT/SGPT 29 U/L (12-78); AST/SGOT 38 U/L (15-37); Albumin 4.4 g/dL (3.4-5.0); Alkaline Phosphatase 84 U/L (45-117); BUN Blood Urea Nitrogen 11 mg/dL (7-18); Bicarbonate 27 mmol/L (21-32); Bilirubin Direct < 0.1 mg/dL (0-0.2); Bilirubin Total 0.2 mg/dL (0.2-1.0); Glucose Level 130 mg/dL (74-106); NT PRO-BNP 5 pg/mL (<125); Protein, Total 7.8 g/dL (6.4-8.2); Sodium Level 141 mmol/L (136-145); Troponin (Emerg Dept Use Only) < 0.02 ng/mL (0.0-0.045)
[2021-05-31 22:40] LABS: Phenytoin (Dilantin) Level 20.6 ug/mL (10.0-20.0)
[2021-05-31 22:52] LABS: Urine Blood Negative (Negative); Urine Glucose Negative (Negative); Urine Protein Negative (Negative)
--- NOTE | 2021-05-31 23:06 | ER ---
Nurse's Notes [facility] Name: Sander Nunez Age: 20 yrs Sex: Male : 2000 Arrival Date: 05/31/2021 Time: 21:03 Bed 3 Private MD: Diagnosis: Adverse effect of hydantoin derivatives-dilantin;Weakness Presentation: 05/31 21:52 Chief complaint: Parent and/or Guardian states: psych/fatigue. Coronavirus screen: df1 Vaccine status: Patient reports being unvaccinated. Ebola Screen: Patient negative for fever greater than or equal to 101.5 degrees Fahrenheit, and additional compatible Ebola Virus Disease symptoms Patient denies exposure to infectious person. Patient denies travel to an Ebola-affected area in the 21 days before illness onset. Onset: The symptoms/episode began/occurred gradually. Anaphylaxis evaluation, no signs or symptoms of anaphylaxis were noted. Initial Sepsis Screen: Does the patient meet any 2 criteria? No. Patient's initial sepsis screen is negative. Does the patient have a suspected source of infection? No. Patient's initial sepsis screen is negative. Risk Assessment: Do you want to hurt yourself or someone else? Patient reports desire/thoughts of hurting themselves or someone else. Provider notified. Onset of symptoms was May 27, 2021 at 19:00. 21:52 Method Of Arrival: Wheelchair df1 21:52 Acuity: QUE 2 df1 21:58 Note Father brought pt in because pt acting tired and a psych eval. Pt DC'd from here df1 yesterday for OD of Benadryl. Last pt ingested Zquil and sprite to "help go to sleep' Pt denies any intention of harming self last week just trying to get sleep. During hospital stay pt had seizures and started on Dilantin at home. During triage pt states "I wish I was ". Father at bedside and states no meds in house. All OTC medications were removed from home. Over past month pt broke up with girlfriend, lost his job and dog . No previous Psych history. Father states last week was first attempt to harm self. 23:55 Note Pt calm and cooperative. Father at bedside speaking with pt. No distress noted. df1 Father is encouraging with pt. Pt given sandwich/chips/drink. No further requests. 06/01 00:46 Note Provider at bedside to discuss DC instructions. Pt and father state understanding. df1 Father states he will follow up with PCP, Neuro, psych. Pt made verbal contract for safety and to return to ER for any issue. Historical: - Allergies: 05/31 21:54 No Known Allergies; df1 - Home Meds: 21:54 dilantin 300 mg PO Daily [Active]; df1 - PMHx: 21:54 Seizure; ADHD; TBI; df1 - PSHx: 21:54 None; df1 - Immunization history:: Adult Immunizations up to date, Client reports having NOT received the Covid vaccine. - Social history:: Smoking status: Patient denies any tobacco usage or history of. Screenin:57 Abuse screen: Denies threats or abuse. Nutritional screening: No deficits noted. df1 Tuberculosis screening: No symptoms or risk factors identified. Fall Risk None identified. IV access (20 points). Assessment: 23:37 General: Appears distressed, uncomfortable, Behavior is calm, cooperative. Pain: Denies df1 pain. Neuro: No deficits noted. Cardiovascular: No deficits noted. Respiratory: Airway is patent Trachea midline Respiratory effort is even, unlabored, Breath sounds are clear bilaterally. GI: No deficits noted. : No deficits noted. EENT: No deficits noted. Derm: No deficits noted. Musculoskeletal: No deficits noted. Psych: 23:38 [place] Suicide Severity Screening: In the past month, have you wished you were df1 or wished you could go to sleep and not wake up? Upon arrival pt stated "I wish I was "because the "way" he felt after taking the Dilantin today. Pt has been on Dilantin for 5 days. Approx 40 min after taking 300 mg Dilantin pt told Father that he felt impending "Doom" and a weight on his chest. Pt was scared because he might have done something if his father was not present to bring in the ER. Pt now states he feels better after being medicated. Pt denies any wish to harm self at this time. "In the past month, have you actually had any thoughts of killing yourself?" Patient responds "no." "In your lifetime, have you ever done anything, started to do anything, or prepared to do anything to end your life?". Subjective: Patient's mood is sad. Objective: Patient is cooperative, Speech is normal, Affect is flat. Interventions: Patient placed in hospital gown. Searched person for dangerous items. Urine collected and sent for urine drug test. Safety Checks: Personal items have been removed. Pt has been placed in a hallway bed/chair. Visitors are present. Pt denies substance abuse. 06/01 00:48 Commitment:. df1 Vital Signs: 05/31 21:48 BP 154 / 107; Pulse 106; Resp 18; Temp 98.9; Pulse Ox 100% on R/A; df1 22:12 BP 148 / 103; Pulse 103; Resp 18; Pulse Ox 100% on R/A; df1 23:54 BP 134 / 86; Pulse 96; Resp 18; Pulse Ox 100% on R/A; Pain 0/10; df1 ED Course: 21:03 Patient arrived in ED. wm 21:04 Josefa Bowman F[facility]-C [facility] kb 21:04 Ryan Calzada MD is Attending Physician. kb 21:18 Anais Bowens is Primary Nurse. df1 21:20 Inserted saline lock: 18 gauge in right forearm, using aseptic technique. Blood lh3 collected. 21:25 Ryan Calzada MD is Attending Physician. cecil 21:39 SARS-COV-2 RT PCR Sent. lh3 21:47 SARS-COV-2 RT PCR Sent. df1 21:47 NT PRO-BNP Sent. df1 21:47 Liver (Hepatic) Function Sent. df1 21:47 Magnesium Sent. df1 21:47 CBC with Automated Diff Sent. df1 21:47 Basic Metabolic Panel Sent. df1 21:47 Acetaminophen Sent. df1 21:47 ETOH Level Sent. df1 21:47 Ptt, Activated Sent. df1 21:47 Salicylate Sent. df1 21:48 Dilantin Sent. df1 21:48 Basic Metabolic Panel Sent. df1 21:48 CBC with Diff Sent. df1 21:48 LFT's Sent. df1 21:48 Magnesium Sent. df1 21:48 NT PRO-BNP Sent. df1 21:48 PT-INR Sent. df1 21:48 Troponin (emerg Dept Use Only) Sent. df1 21:54 Triage completed. df1 22:08 XRAY Chest (1 view) In Process Unspecified. EDMS 22:54 Urine Drug Screen Sent. df1 23:05 Manfred Morton MD is Referral Physician. [facility] 23:52 Arm band placed on right wrist. df1 23:53 No provider procedures requiring assistance completed. df1 23:53 Patient has correct armband on for positive identification. Placed in gown. Bed in low df1 position. Call light in reach. Side rails up X 1. Adult w/ patient. 06/01 00:49 IV discontinued, intact. df1 Administered Medications: 05/31 21:40 Drug: NS 0.9% 1000 ml Route: IV; Rate: 1 bolus; Site: right forearm; 3 21:40 Drug: Pepcid (famotidine) 20 mg Route: IVP; Site: right forearm; 3 23:57 Follow up: Response: No adverse reaction df1 21:40 Drug: Benadryl (diphenhydrAMINE) 25 mg Route: IVP; Site: right forearm; 3 23:57 Follow up: Response: No adverse reaction df1 23:04 Drug: Keppra (levETIRAcetam) 1000 mg Route: IV; Rate: per protocol; Site: right wrist; df1 23:53 Follow up: IV Status: Completed infusion; IV Intake: 100ml df1 Intake: 23:53 IV: 100ml; Total: 100ml. df1 Outcome: 23:05 Discharge ordered by . [facility] 06/01 00:48 Discharged to home ambulatory. df1 Condition: stable Discharge instructions given to patient, ase master mechanic, Instructed on discharge instructions, follow up and referral plans. medication usage, Demonstrated understanding of instructions, follow-up care, medications, Prescriptions given X 3. 00:49 Patient left the ED. df1 Signatures: Dispatcher [employer] EDMN Josefa Bowman, SPOT WELDER [employer]-C SP[employer] WELDER [employer]-Ryan Rowe MD MD cha Marsh, Wendy wm Hardee, Latisha, RN RN [facility] Anais Bowens df1 Corrections: (The following items were deleted from the chart) 05/31 21:57 21:54 Home Meds: Dilantin 30 mg Oral cap 300 mg daily; df1 df1
--- NOTE | 2021-05-31 23:06 | EDPHYS ---
Physician Documentation [facility] Name: Sander Nunez Age: 20 yrs Sex: Male : 2000 Arrival Date: 05/31/2021 Time: 21:03 Bed 3 Private MD: ED Physician Ryan Calzada HPI: 05/31 22:46 This 20 yrs old Male presents to ER via Wheelchair with complaints of Allergic cecil Reaction. 22:46 The patient presents with itching, shaking. Onset: The symptoms/episode began/occurred cecil just prior to arrival. Associated signs and symptoms: Pertinent positives: nausea. Possible causes: dilantin reaction. At home the patient or guardian has treated the symptoms with nothing. Severity of symptoms: At their worst the symptoms were mild in the emergency department the symptoms are unchanged. The patient has not experienced similar symptoms in the past. Historical: - Allergies: 21:54 No Known Allergies; df1 - Home Meds: 21:54 dilantin 300 mg PO Daily [Active]; df1 - PMHx: 21:54 Seizure; ADHD; TBI; df1 - PSHx: 21:54 None; df1 - Immunization history:: Adult Immunizations up to date, Client reports having NOT received the Covid vaccine. - Social history:: Smoking status: Patient denies any tobacco usage or history of. ROS: 22:48 Constitutional: Negative for fever, chills, and weight loss, Eyes: Negative for injury, cecil pain, redness, and discharge, ENT: Negative for injury, pain, and discharge, Neck: Negative for injury, pain, and swelling, Respiratory: Negative for shortness of breath, cough, wheezing, and pleuritic chest pain, Abdomen/GI: Negative for abdominal pain, nausea, vomiting, diarrhea, and constipation, Back: Negative for injury and pain, : Negative for injury, bleeding, discharge, and swelling, MS/Extremity: Negative for injury and deformity, Skin: Negative for injury, rash, and discoloration, Neuro: Negative for headache, weakness, numbness, tingling, and seizure, Psych: Negative for depression, anxiety, suicide ideation, homicidal ideation, and hallucinations, Allergy/Immunology: Negative for hives, rash, and allergies, Endocrine: Negative for neck swelling, polydipsia, polyuria, polyphagia, and marked weight changes, Hematologic/Lymphatic: Negative for swollen nodes, abnormal bleeding, and unusual bruising. 22:48 Cardiovascular: Positive for palpitations. Exam: 22:48 Constitutional: This is a well developed, well nourished patient who is awake, alert, cecil and in no acute distress. Head/Face: Normocephalic, atraumatic. Eyes: Pupils equal round and reactive to light, extra-ocular motions intact. Lids and lashes normal. Conjunctiva and sclera are non-icteric and not injected. Cornea within normal limits. Periorbital areas with no swelling, redness, or edema. ENT: Nares patent. No nasal discharge, no septal abnormalities noted. Tympanic membranes are normal and external auditory canals are clear. Oropharynx with no redness, swelling, or masses, exudates, or evidence of obstruction, uvula midline. Mucous membranes moist. Neck: Trachea midline, no thyromegaly or masses palpated, and no cervical lymphadenopathy. Supple, full range of motion without nuchal rigidity, or vertebral point tenderness. No Meningismus. Chest/axilla: Normal chest wall appearance and motion. Nontender with no deformity. No lesions are appreciated. Respiratory: Lungs have equal breath sounds bilaterally, clear to auscultation and percussion. No rales, rhonchi or wheezes noted. No increased work of breathing, no retractions or nasal flaring. Abdomen/GI: Soft, non-tender, with normal bowel sounds. No distension or tympany. No guarding or rebound. No evidence of tenderness throughout. Back: No spinal tenderness. No costovertebral tenderness. Full range of motion. Male : Normal genitalia with no discharge or lesions. Skin: Warm, dry with normal turgor. Normal color with no rashes, no lesions, and no evidence of cellulitis. MS/ Extremity: Pulses equal, no cyanosis. Neurovascular intact. Full, normal range of motion. Neuro: Awake and alert, GCS 15, oriented to person, place, time, and situation. Cranial nerves II-XII grossly intact. Motor strength 5/5 in all extremities. Sensory grossly intact. Cerebellar exam normal. Normal gait. Psych: Awake, alert, with orientation to person, place and time. Behavior, mood, and affect are within normal limits. 22:48 Cardiovascular: Rate: tachycardic, actual rate is 103 bpm, Rhythm: regular, Pulses: Pulses are 4+ in bilateral radial, brachial, femoral, popliteal, posterior tibial and and dorsalis pedis arteries.. Heart sounds: normal, normal S1and S2, Edema: is not appreciated, JVD: is not appreciated. 22:48 ECG was reviewed by the Attending Physician. Vital Signs: 21:48 BP 154 / 107; Pulse 106; Resp 18; Temp 98.9; Pulse Ox 100% on R/A; df1 22:12 BP 148 / 103; Pulse 103; Resp 18; Pulse Ox 100% on R/A; df1 23:54 BP 134 / 86; Pulse 96; Resp 18; Pulse Ox 100% on R/A; Pain 0/10; df1 MDM: 21:25 Patient medically screened. cecil 22:52 Differential diagnosis: anaphylaxis, angioedema, Arrhythmias bronchospasm, urticaria, cecil Vasovagal Reactions. Differential Diagnosis altered mental status, sepsis. Data reviewed: vital signs, nurses notes, lab test result(s), EKG, radiologic studies, plain films. Data interpreted: quality assurance monitor final: rate is 103 beats/min, rhythm is regular, Pulse oximetry: on room air is 100 %. Test interpretation: by ED physician or midlevel provider: ECG, plain radiologic studies. Counseling: I had a detailed discussion with the patient and/or guardian regarding: the historical points, exam findings, and any diagnostic results supporting the discharge/admit diagnosis, lab results, radiology results, the need for outpatient follow up, for definitive care, a family practitioner, a neurologist. 06/01 00:13 ED course: NOT HOMICIDAL, NOT SUICIDAL. [facility] 05/31 21: Order name: Basic Metabolic Panel [facility] 05/31 21: Order name: CBC with Diff 05/31: Order name: LFT's 05/31:26 Order name: Magnesium cecil 05/31 21: Order name: NT PRO-BNP 05/31: Order name: PT-INR; Complete Time: 22:[address] [facility] 05/31 21: Order name: Troponin (emerg Dept Use Only); Complete Time: 22:45 05/31: Order name: Dilantin; Complete Time: 22:44 cecil 05/31 21: Order name: Acetaminophen; Complete Time: 22:[address] [facility] 05/31 21:26 Order name: ETOH Level; Complete Time: 22:[address] [facility] 05/31 21:26 Order name: Ptt, Activated; Complete Time: 22:[address] [facility] 05/31 21:26 Order name: Salicylate; Complete Time: 22:[address] [facility] 05/31 21:26 Order name: Urine Drug Screen; Complete Time: 00:[address] [facility] 05/31 21:27 Order name: Basic Metabolic Panel; Complete Time: 22:44 EDMS 05/31 21:26 Order name: XRAY Chest (1 view) [facility] 05/31 21:26 Order name: EKG; Complete Time: 21:[address] [facility] 05/31 21:26 Order name: Cardiac monitoring; Complete Time: 21:[address] [facility] 05/31 21:26 Order name: EKG - Nurse/Tech; Complete Time: 21:[address] [facility] 05/31 21:26 Order name: IV Saline Lock; Complete Time: 21:[address] [facility] 05/31 21:27 Order name: CBC with Automated Diff; Complete Time: 22:45 EDPA 05/31 21:27 Order name: Liver (Hepatic) Function; Complete Time: 22:44 EDPA 05/31 21:27 Order name: Magnesium; Complete Time: 22:45 EDPA 05/31 21:27 Order name: NT PRO-BNP; Complete Time: 22:45 EDPA 05/31 21:39 Order name: SARS-COV-2 RT PCR; Complete Time: 23:04 [facility] 05/31 22:51 Order name: Urine Dipstick-Ancillary; Complete Time: 23:04 [facility] 05/31 21:26 Order name: Labs collected and sent; Complete Time: 21:[address] [facility] 05/31 21:26 Order name: O2 Per Protocol; Complete Time: 21:[address] [facility] 05/31 21:26 Order name: O2 Sat Monitoring; Complete Time: 21:[address] [facility] 05/31 21:26 Order name: Seizure Precautions; Complete Time: 22:[address] [facility] 05/31 21:26 Order name: Suicide Screening ([place]); Complete Time: 23:[address] [facility] 05/31 21:26 Order name: Urine Dipstick-Ancillary (obtain specimen); Complete Time: 22:[address] [facility] EC/18 22:48 Rate is 109 beats/min. Rhythm is regular. QRS [place] is Normal. [place] interval is normal. [facility] QRS interval is normal. QT interval is normal. No Q waves. T waves are Normal. No ST changes noted. Clinical impression: Sinus tachycardia. Interpreted by me. Reviewed by me. Administered Medications: 21:40 Drug: NS 0.9% 1000 ml Route: IV; Rate: 1 bolus; Site: right forearm; lh3 21:40 Drug: Pepcid (famotidine) 20 mg Route: IVP; Site: right forearm; lh3 23:57 Follow up: Response: No adverse reaction df1 21:40 Drug: Benadryl (diphenhydrAMINE) 25 mg Route: IVP; Site: right forearm; lh3 23:57 Follow up: Response: No adverse reaction df1 23:04 Drug: Keppra (levETIRAcetam) 1000 mg Route: IV; Rate: per protocol; Site: right wrist; df1 23:53 Follow up: IV Status: Completed infusion; IV Intake: 100ml df1 Disposition Summary: 05/31/21 23:05 Discharge Ordered Location: Home cecil Problem: new cecil Symptoms: have improved cecil Condition: Stable cecil Diagnosis - Adverse effect of hydantoin derivatives - dilantin cecil - Weakness cecil Followup: cecil - With: Private Physician - When: 2 - 3 days - Reason: Recheck today's complaints, Continuance of care, Re-evaluation by your physician Followup: cecil - With: - When: 2 - 3 days - Reason: Recheck today's complaints, Continuance of care, Re-evaluation by your physician Discharge Instructions: - Discharge Summary Sheet cecil - Drug Allergy, [id number] cecil - Drug Allergy cecil - Weakness cecil - Weakness, [id number] [facility] Forms: - Medication Reconciliation Form [facility] - Thank You Letter [facility] - Antibiotic Education cecil - Prescription Opioid Use [facility] Prescriptions: - Keppra 500 mg Oral Tablet - take 1 tablet by ORAL route every 12 hours; 30 tablet; Refills: 0, Product cecil Selection Permitted - Pepcid 20 mg Oral Tablet - take 1 tablet by ORAL route every 12 hours for 15 days; 30 tablet; Refills: 0, [facility] Product Selection Permitted - Zofran 4 mg Oral Tablet - take 1 tablet by ORAL route every 12 hours As needed; 20 tablet; Refills: 0, [facility] Product Selection Permitted Signatures: Dispatcher [employer] EDRyan Jonas MD MD cha Hardee, Latisha RN RN 3 Anais Bowens df1 Corrections: (The following items were deleted from the chart) 21:39 21:30 CORONAVIRUS+.BRZ ordered. EDMS EDMS 21:57 21:54 Home Meds: Dilantin 30 mg Oral cap 300 mg daily; df1 df1
[2021-05-31 23:09] LABS: Barbiturates NEGATIVE (NEGATIVE); Benzodiazepines NEGATIVE (NEGATIVE); Cocaine NEGATIVE (NEGATIVE); METHAMPHETAM NEGATIVE (NEGATIVE); Methadone NEGATIVE (NEGATIVE); Opiates NEGATIVE (NEGATIVE); Phencyclidine NEGATIVE (NEGATIVE); THC Cannibis NEGATIVE (NEGATIVE)
[2021-05-31] MEDS ORDERED: NA CHLORIDE 0.9% 100 ML ONE (23:23)
[2021-05-31] MEDS ORDERED: LEVETIRACETAM 500 MG/5 ML VIAL IV ONE (23:23)
[2021-06-01 00:55] VITALS: TEMP 98.9; O2SAT 100
[2021-06-01 00:58] VITALS: BP 134/86
--- NOTE | 2021-06-01 12:54 | RAD REPORT ---
EXAM DESCRIPTION: RAD - Chest Single View - 05/31/2021 10:08 pm CLINICAL HISTORY: COUGH COMPARISON: Portable May 27 TECHNIQUE: AP portable chest image was obtained 05/31/2021 10:08 pm . FINDINGS: Lungs are clear. Heart and vasculature are normal. No measurable pleural effusion and no p neumothorax. No acute bony abnormality seen. No acute aortic findings suspected. IMPRESSION: No acute cardiopulmonary process. No significant change from comparison study.
--- NOTE | 2021-06-01 16:43 | EKG ---
Test Date: 2021-05-31 Test Time: 21:47:59 Production Recorder: TRE MEASUREMENT RESULTS: Intervals: Rate: 110 NH: 142 QRSD: 90 QT: 304 QTc: 411 [place]: P: 60 NH: 142 QRS: 72 T: 36 INTERPRETIVE STATEMENTS: Sinus tachycardia ST & T wave abnormality, consider inferior ischemia Abnormal ECG Compared to ECG 05/27/2021 17:16:43 No significant changes Electronically Signed On 06-01-21 16:41:04 CDT by Sachin Currie
--- NOTE | 2021-06-01 16:43 | EKG ---
Test Date: 2021-05-31 Test Time: 21:48:53 Standard Machine Stitcher: TRE MEASUREMENT RESULTS: Intervals: Rate: 109 MS: 156 QRSD: 90 QT: 332 QTc: 447 [place]: P: 62 MS: 156 QRS: 71 T: 26 INTERPRETIVE STATEMENTS: Sinus tachycardia T wave abnormality, consider inferior ischemia Abnormal ECG Compared to ECG 05/31/2021 21:47:59 T-wave abnormality now present ST (T wave) deviation no longer present Possible ischemia still present Electronically Signed On 06-01-21 16:41:04 CDT by Sachin Currie
== END 2021-06-01 00:49 | disposition home or self-care (01) ==
LOC: ER 21:02
DX: R53.1 Weakness (principal); T42.0X5A Adverse effect of hydantoin derivatives, initial encounter; G40.909 Epilepsy, unspecified, not intractable, without status epilepticus; Z87.820 Personal history of traumatic brain injury; Z20.822 Contact with and (suspected) exposure to COVID-19
CPT/HCPCS: 93005 ×2; 85025; 80048; 36415; 80320; 83735; 80329 ×2; 85610; 80076; 85730; 80185; 81003; 84484; 83880; 80307; 71045; 96375; 99284; U0003; J1200; J1953; J7030

== ENCOUNTER 2021-06-16 11:39 | Emergency (ER) | payer OTHER ==
[2021-06-16] MEDS ORDERED: NA CHLORIDE 0.9% 2,000 ML ONE (11:51)
[2021-06-16] MEDS ORDERED: PANTOPRAZOLE 40 MG INJ ONE (11:51)
[2021-06-16] MEDS ORDERED: ONDANSETRON 4 MG/2 ML VIAL ONE (11:51)
[2021-06-16 12:10] LABS: Absolute Lymphocytes (CBC) 0.5 K/uL (0.7-4.9); Basophils % 0.1 % (0-1.3); Hematocrit 45.4 % (39.6-49.0); Lymphocytes % 3.5 % (15.3-44.8); MPV 8.3 fL (7.6-11.3)
[2021-06-16 12:13] LABS: Protime INR 1.21
[2021-06-16] MEDS ORDERED: CALCIUM GLUCONATE 1 GM IVPB 1 GM/50 ML BAG IV ONE (12:25)
[2021-06-16 12:45] LABS: ALT/SGPT 18 U/L (12-78); AST/SGOT 15 U/L (15-37); Albumin 4.3 g/dL (3.4-5.0); Alkaline Phosphatase 62 U/L (45-117); BUN Blood Urea Nitrogen 16 mg/dL (7-18); Bicarbonate 24 mmol/L (21-32); Bilirubin Direct 0.2 mg/dL (0-0.2); Bilirubin Total 0.7 mg/dL (0.2-1.0); Glucose Level 177 mg/dL (74-106); Potassium 3.2 mmol/L (3.5-5.1); Protein, Total 7.6 g/dL (6.4-8.2); Sodium Level 144 mmol/L (136-145)
[2021-06-16 13:12] LABS: Blood Morphology Comment NOT SEEN (NOT SEEN); Platelet Estimate ADEQ; White Blood Cell Scan OK (OK)
[2021-06-16] MEDS ORDERED: NA CHLORIDE 0.9% 1,000 ML ONE ×2 (13:20→16:33)
[2021-06-16] MEDS ORDERED: MAGNESIUM SULFATE 1 gm IVPB 1 GM/100 ML BAG IV ONE (13:20)
[2021-06-16] MEDS ORDERED: NOREPINEPHRINE 4mg/D5W 250mL 4 MG/250 ML BAG IV ONE ×2 (13:34→16:33)
[2021-06-16] MEDS ORDERED: GLUCAGON 1 MG/VIAL ONE ×3 (13:50→13:54)
[2021-06-16] MEDS ORDERED: ATROPINE SULF 1 MG/10 ML SYR IV ONE (13:50)
--- NOTE | 2021-06-16 14:50 | EDPHYS ---
Physician Documentation [facility] Name: Sander Nunez Age: 20 yrs Sex: Male : 2000 Arrival Date: 06/16/2021 Time: 11:39 Bed 7 Private MD: ED Physician Arturo Ortega HPI: 06/16 13:57 This 20 yrs old Male presents to ER via Wheelchair with complaints of Overdose.rn 13:57 The patient presents to the emergency department after a known overdose, that was rn intentional. Context: Method: the patient has a confirmed or suspected ingestion, Time: last night, Extent: Previous OD/poisoning history: yes. Associated signs and symptoms: Pertinent positives: decreased level of consciousness, Pertinent negatives: auditory hallucinations, shortness of breath, visual hallucinations. Severity of symptoms: At their worst the symptoms were moderate in the emergency department the symptoms are unchanged. The patient has experienced a previous episode. The patient has not recently seen a physician. Patient reports last night around 11 PM took a handful of pills. States took a combination of verapamil, losartan, indomethacin, and sumatriptan. Unknown how many of each or if they were extended release. Patient reports woke up today feeling terrible/lightheaded/blurred vision and dizzy. Not improving.. Historical: - Allergies: 11:54 No Known Allergies; ss - Home Meds: 11:54 None [Active]; ss - PMHx: 11:54 adhd; Seizure; TBI; ss - PSHx: 11:54 None; ss - Immunization history:: Client reports having NOT received the Covid vaccine. - Social history:: Smoking status: Patient denies any tobacco usage or history of. ROS: 13:59 Constitutional: Negative for fever, chills, and weight loss, Eyes: Negative for injury, rn pain, redness, and discharge, Neck: Negative for injury, pain, and swelling, Cardiovascular: Negative for chest pain, palpitations, and edema, Respiratory: Negative for shortness of breath, cough, wheezing, and pleuritic chest pain, Abdomen/GI: Negative for abdominal pain, diarrhea, and constipation, Back: Negative for injury and pain, MS/Extremity: Negative for injury and deformity, Skin: Negative for injury, rash, and discoloration, Neuro: Negative for headache, numbness, tingling, and seizure. Exam: 13:59 Constitutional: Somnolent but awakens to voice. Head/Face: Normocephalic, atraumatic. rn Eyes: Periorbital areas with no swelling, redness, or edema. Cardiovascular: Bradycardic, irregular. Respiratory: No increased work of breathing, no retractions or nasal flaring. Abdomen/GI: Soft, non-tender Skin: Warm, dry MS/ Extremity: Pulses equal, no cyanosis. Neuro: Somnolent but awakens easily to voice, GCS 15. Moves all 4 extremities. Vital Signs: 11:48 BP 83 / 43; Pulse 53; Resp 14; Pulse Ox 98% on R/A; Weight 68.04 kg; Height 5 ft. 7 in. ss (170.18 cm); Pain 8/10; 11:52 BP 86 / 40; Pulse 69; Resp 17; Pulse Ox 97% on R/A; tw2 12:30 BP 76 / 38; tw2 12:38 BP 76 / 39; Pulse 56; Resp 14; Pulse Ox 100% on R/A; tw2 12:45 BP 61 / 33; Pulse 54; Resp 20; Pulse Ox 100% on R/A; tw2 13:59 Temp 97.5(O); tw2 14:06 BP 112 / 57; Pulse 54; Resp 18; Pulse Ox 100% on R/A; ss 14:15 BP 98 / 42; Pulse 50; Pulse Ox 100% on 2 lpm NC; ap3 14:25 BP 94 / 40; Pulse 52; Pulse Ox 100% on 2 lpm NC; ap3 14:30 BP 94 / 38; Pulse 52; Pulse Ox 100% on 2 lpm NC; ap3 14:40 BP 100 / 42; Pulse 51; Resp 12; Pulse Ox 100% on 2 lpm NC; ap3 14:43 BP 98 / 42; Pulse 53; Resp 14; Pulse Ox 100% on 2 lpm NC; ap3 14:45 BP 101 / 43; Pulse 52; Resp 16; Pulse Ox 100% on 2 lpm NC; tw2 15:00 BP 106 / 41; Pulse 52; Resp 16; Pulse Ox 100% on 2 lpm NC; tw2 15:15 BP 103 / 42; Pulse 52; Resp 16; Pulse Ox 100% 2 lpm ; tw2 15:30 BP 107 / 44; Pulse 54; Resp 16; Pulse Ox 100% on 2 lpm NC; tw2 15:45 BP 114 / 43; Pulse 54; Resp 18; Pulse Ox 100% on 2 lpm NC; tw2 15:58 BP 106 / 49; Pulse 54; Resp 14; Pulse Ox 100% on 2 lpm NC; ss 16:00 BP 114 / 46; Pulse 54; Resp 17; Pulse Ox 100% on 2 lpm NC; tw2 16:15 BP 112 / 47; Pulse 55; Resp 17; Pulse Ox 100% on 2 lpm NC; tw2 16:30 BP 113 / 50; Pulse 55; Resp 17; Pulse Ox 100% on 2 lpm NC; tw2 16:42 BP 116 / 47; Pulse 54; Resp 16; Pulse Ox 100% on 2 lpm NC; tw2 11:48 Body Mass Index 23.49 (68.04 kg, 170.18 cm) ss 11:52 provider notified. tw2 12:30 provider notified, iv fluids on pressure bag. no further orders at this time. tw2 12:38 provider notified. no further orders at this time. tw2 12:45 provider notified. tw2 Procedures: 13:40 Central Line: the site was prepped with Betadine, in sterile fashion, a triple lumen rn catheter was inserted, in the right femoral vein, in 1 attempts. placement was verified, by blood return, the site was dressed with Tegaderm, using sterile technique, the patient tolerated the procedure, well. MDM: 11:42 Patient medically screened. rn 13:37 ED course: Patient persistently hypotensive despite fluid resuscitation. Still insisted rn took verapamil and losartan but now states he took another medication that was prescribed to him in the past after concussion. ECG shows possible A-V dissociation. Central line placed for pressor support. Cardiology has been paged and waiting on callback.. 13:49 ED course: Consulted with Dr. Currie, states to try atropine, glucagon. Recommends internal specialist to [facility] for toxicological consultation and further care with possible EP consultation given ECG findings.. 14:43 Differential diagnosis: Ingestion/exposure to verapamil polypharmacy, over medication. rn Data reviewed: vital signs, nurses notes, lab test result(s), EKG, and as a result, I will admit patient. Data interpreted: cardiac monitor technician: rate is 56 beats/min, rhythm is irregular, junctional rhythm, with PACs, Interpretation: bradycardia, Pulse oximetry: on room air is 100 %. Interpretation: normal. Counseling: I had a detailed discussion with the patient and/or guardian regarding: the historical points, exam findings, and any diagnostic results supporting the discharge/admit diagnosis, lab results, radiology results, the need for further work-up and treatment in the hospital, the need to transfer to another facility, for higher level of care, [facility] does not immediately have the required specialist. Response to treatment: the patient's symptoms have mildly improved after treatment, and as a result, I will admit patient. Admission orders: after a detailed discussion of the patient's condition and case, the admit orders are written by me. ED course: Accepted for transfer to [facility] in the [facility]. Current blood pressure is 98/42 with a heart rate in the 50s still.. 06/16 11:47 Order name: Acetaminophen; Complete Time: 13:39 rn 06/16 11:47 Order name: Basic Metabolic Panel; Complete Time: 13:39 rn 06/16 11:47 Order name: CBC with Diff; Complete Time: 13:39 rn 06/16 11:47 Order name: ETOH Level; Complete Time: 13:39 rn 06/16 11:47 Order name: Hepatic Function; Complete Time: 13:39 rn 06/16 11:47 Order name: PT-INR; Complete Time: 12:23 rn 06/16 11:47 Order name: Ptt, Activated; Complete Time: 12:23 rn 06/16 11:47 Order name: Salicylate; Complete Time: 13:39 rn 06/16 11:51 Order name: COVID-19 SARS RT PCR (Document "Date of Onset" if Symptomatic) bd 06/16 11:52 Order name: SARS-COV-2 RT PCR; Complete Time: 14:07 EDMS 06/16 12:12 Order name: CBC Smear Scan; Complete Time: 13:39 EDMS 06/16 11:47 Order name: EKG; Complete Time: 11:47 rn 06/16 11:47 Order name: EKG - Nurse/Tech; Complete Time: 11:50 rn 06/16 11:47 Order name: IV Saline Lock; Complete Time: 12:00 rn 06/16 11:47 Order name: Labs collected and sent; Complete Time: 12:00 rn 06/16 11:47 Order name: Suicide Precautions; Complete Time: 13:08 rn 06/16 11:47 Order name: Suicide Screening ([place]); Complete Time: 13:08 rn 06/16 13:31 Order name: Central Line Kit; Complete Time: 13:31 tw2 06/16 13:38 Order name: Ann; Complete Time: 13:50 tw2 Administered Medications: 11:59 Drug: NS 0.9% 1000 ml Route: IV; Rate: 1000 ml; Site: right forearm; ap3 13:00 Follow up: IV Status: Completed infusion; IV Intake: 1000ml tw2 12:00 Drug: ProTONIX (pantoprazole) 40 mg Route: IVP; Site: right forearm; ap3 13:17 Follow up: Response: No adverse reaction ap3 12:00 Drug: NS 0.9% 1000 ml Route: IV; Rate: 1000 ml; Site: right forearm; ap3 13:10 Follow up: IV Status: Completed infusion; IV Intake: 1000ml ap3 12:00 Drug: Zofran (Ondansetron) 4 mg Route: IVP; Site: right forearm; ap3 13:17 Follow up: Response: No adverse reaction ap3 12:39 Drug: Calcium Gluconate 1 grams Route: IVPB; Infused Over: 60 mins; Site: right forearm;ap3 13:17 Follow up: IV Status: Completed infusion ap3 13:20 Drug: NS 0.9% 1000 ml Route: IV; Rate: 1000 ml; Site: left forearm; tw2 14:00 Follow up: IV Status: Completed infusion; IV Intake: 1000ml ss 13:31 Drug: Magnesium Sulfate 1 grams Route: IVPB; Infused Over: 1 hrs; Site: right forearm; tw2 14:30 Follow up: IV Status: Completed infusion ss 13:49 CANCELLED (Duplicate Order): D50W 50 ml IVP once; (1 amp) rn 13:50 Drug: Levophed (norepinephrine) (4 mg/250 mL D5W 4 mcg/min Route: IV; Rate: calculated ap3 rate; Site: right femoral; 14:06 Follow up: Rate change 10 mcg/min tw2 14:19 Follow up: Rate change 15 mcg/min ap3 14:38 Follow up: Rate change 20 mcg/min ap3 15:05 Follow up: Rate change 25 mcg/min tw2 16:39 Follow up: IV Status: Infusion continued upon transfer; Infusion continued upon tw2 transfer. [facility] asked for additional bag of Levophed \\T\\ 1L NS for EMS ride to [facility]. 13:55 CANCELLED (Duplicate Order): Glucagon 1 mg IVP once rn 13:58 Drug: Glucagon 3 mg Route: IVP; Site: left forearm; tw2 14:20 Follow up: Response: Other ap3 14:15 Drug: Atropine 0.5 mg Route: IVP; Site: right femoral; ss 14:20 Follow up: Response: No adverse reaction ap3 Disposition Summary: 06/16/21 14:50 Transfer Ordered Transfer Location: [facility] rn Reason: Higher level of care rn Condition: Serious rn Problem: new rn Symptoms: have improved rn Accepting Physician: (06/16/21 16:43) tw2 Diagnosis - Intentional overdose - Verapamil rn - Hypotension, unspecified rn - Altered mental status, unspecified rn - Suicidal ideations rn - Atrioventricular block, complete rn Forms: - Medication Reconciliation Form rn - SBAR form environmental engineering intern time excluding procedures: 14:43 Critical care time: Bedside Care: 70 minutes, Consultation: 10 minutes. Total time: 80 rn minutes Signatures: Dispatcher [employer] EDMS Arturo Ortega MD MD rn Smirch, Shelby RN RN Fanny Polanco RN RN tw2 Lilly Montana RN RN ap3 Corrections: (The following items were deleted from the chart) 13:49 13:48 D50W 50 ml IVP once; (1 amp) ordered. rn rn 13:55 13:47 Glucagon 1 mg IVP once ordered. rn rn 16:43 14:50 rn tw2
--- NOTE | 2021-06-16 14:50 | ER ---
Nurse's Notes [facility] Name: Sander Nunez Age: 20 yrs Sex: Male : 2000 Arrival Date: 06/16/2021 Time: 11:39 Bed 7 Private MD: Diagnosis: Intentional overdose - Verapamil;Hypotension, unspecified;Altered mental status, unspecified;Suicidal ideations;Atrioventricular block, complete Presentation: 06/16 11:48 Chief complaint: Patient states: Took approximately 50-60 tablets of Dad's verapamil ss and Losartan last night at approximately 11pm. Pt states he took them because he was "stressed out." Denies SI/HI at this time. C/o blurry vision that started 1 hour ago and black emesis that started this morning. Coronavirus screen: Client denies travel out of the [place] in the last 14 days. Ebola Screen: Patient denies exposure to infectious person. Patient denies travel to an Ebola-affected area in the 21 days before illness onset. Initial Sepsis Screen: Does the patient meet any 2 criteria? No. Patient's initial sepsis screen is negative. Does the patient have a suspected source of infection? No. Patient's initial sepsis screen is negative. Risk Assessment: Do you want to hurt yourself or someone else? Patient reports no desire to harm self or others. Onset of symptoms was June 16, 2021. 11:48 Method Of Arrival: Wheelchair ss 11:48 Acuity: QUE 2 ss 14:13 Acuity: QUE 1 ss Historical: - Allergies: 11:54 No Known Allergies; ss - Home Meds: 11:54 None [Active]; ss - PMHx: 11:54 adhd; Seizure; TBI; ss - PSHx: 11:54 None; ss - Immunization history:: Client reports having NOT received the Covid vaccine. - Social history:: Smoking status: Patient denies any tobacco usage or history of. Screenin:52 Abuse screen: Denies threats or abuse. Nutritional screening: No deficits noted. tw2 Tuberculosis screening: No symptoms or risk factors identified. Fall Risk None identified. Assessment: 12:01 General: Appears comfortable, Behavior is drowsy, quiet. Pain: Complains of pain in ap3 abdomen Quality of pain is described as burning, aching. Neuro: Level of Consciousness is awake, alert, obeys commands, Oriented to person, place, time, situation, Speech is normal. Cardiovascular: Capillary refill < 3 seconds Patient's skin is warm and dry. Respiratory: Airway is patent Respiratory effort is even, unlabored, Respiratory pattern is regular, symmetrical. GI: Reports nausea, coffee ground emeses. 12:28 Reassessment: Spoke with [facility] Roxana, who states that due to ss Verapamil having a long half life that patient must be admitted to ICU or transferred for higher level of care for continuous monitoring. Obtain EKG, Tox work up, and give symptomatic treatment. Recommendation to also closely monitor urine output and administer IV fluid bolus. 12:28 Reassessment: Poison control case # [id number]. ss 12:40 Reassessment: at this time, patient is A/O X's 3. Patient is unable to give proper ap3 medical history at this time but states this overdose was accidental. 12:49 General: Behavior is quiet. Neuro: Level of Consciousness is lethargic, Oriented to ap3 person, place. 13:04 Reassessment: patient states he received a text last night from a recent EX-Girlfriend ap3 which upset him. He states he wanted to just "get away from hit" and "make it go away". 13:09 Reassessment: patient states that the medication he previously admitted to taking is ap3 not correct. Father who is at the bedside informed staff he will be going to the home to see what it was that he took. 13:34 Reassessment: provider at bedside at this time performing central line at this time. tw2 14:00 Reassessment: Patient actively vomiting, emeses bag provided. Emeses appears bloody. ap3 Provider notified. 15:08 Reassessment: provider at bedside discussing poc with pts father. tw2 15:18 Reassessment: Father retrieved medication from home which include Empty bottle of ss Indomethacin 25 mg capsules, Meclizine 25 mg tablets, Sumatriptan 50 mg and two other bottles of Losartan and Verapamil. It is still unknown how much of which medication he has taken, but father states there were tablets remaining in the Losartan and Verapamil bottles. 15:59 Reassessment: Pt is resting a this time. Eyes closed. Respirations even and unlabored. ss 16:42 Reassessment: Patient and/or family updated on plan of care and expected duration. Pain tw2 level reassessed. Overdose: 12:39 [place] Suicide Severity Screening: "In the past month, have you actually had any ap3 thoughts of killing yourself?" Patient responds "yes." Based off client's responses, additional C-SSRS screening questions required. 12:39 [place] Suicide Severity Screening: "In your lifetime, have you ever done anything, ap3 started to do anything, or prepared to do anything to end your life?". 12:42 [place] Suicide Severity Screening: "In the past month, have you wished you were ap3 or wished you could go to sleep and not wake up?" Patient responds "yes." Based off client's responses, additional C-SSRS screening questions required. Vital Signs: 11:48 BP 83 / 43; Pulse 53; Resp 14; Pulse Ox 98% on R/A; Weight 68.04 kg; Height 5 ft. 7 in. ss (170.18 cm); Pain 8/10; 11:52 BP 86 / 40; Pulse 69; Resp 17; Pulse Ox 97% on R/A; tw2 12:30 BP 76 / 38; tw2 12:38 BP 76 / 39; Pulse 56; Resp 14; Pulse Ox 100% on R/A; tw2 12:45 BP 61 / 33; Pulse 54; Resp 20; Pulse Ox 100% on R/A; tw2 13:59 Temp 97.5(O); tw2 14:06 BP 112 / 57; Pulse 54; Resp 18; Pulse Ox 100% on R/A; ss 14:15 BP 98 / 42; Pulse 50; Pulse Ox 100% on 2 lpm NC; ap3 14:25 BP 94 / 40; Pulse 52; Pulse Ox 100% on 2 lpm NC; ap3 14:30 BP 94 / 38; Pulse 52; Pulse Ox 100% on 2 lpm NC; ap3 14:40 BP 100 / 42; Pulse 51; Resp 12; Pulse Ox 100% on 2 lpm NC; ap3 14:43 BP 98 / 42; Pulse 53; Resp 14; Pulse Ox 100% on 2 lpm NC; ap3 14:45 BP 101 / 43; Pulse 52; Resp 16; Pulse Ox 100% on 2 lpm NC; tw2 15:00 BP 106 / 41; Pulse 52; Resp 16; Pulse Ox 100% on 2 lpm NC; tw2 15:15 BP 103 / 42; Pulse 52; Resp 16; Pulse Ox 100% 2 lpm ; tw2 15:30 BP 107 / 44; Pulse 54; Resp 16; Pulse Ox 100% on 2 lpm NC; tw2 15:45 BP 114 / 43; Pulse 54; Resp 18; Pulse Ox 100% on 2 lpm NC; tw2 15:58 BP 106 / 49; Pulse 54; Resp 14; Pulse Ox 100% on 2 lpm NC; ss 16:00 BP 114 / 46; Pulse 54; Resp 17; Pulse Ox 100% on 2 lpm NC; tw2 16:15 BP 112 / 47; Pulse 55; Resp 17; Pulse Ox 100% on 2 lpm NC; tw2 16:30 BP 113 / 50; Pulse 55; Resp 17; Pulse Ox 100% on 2 lpm NC; tw2 16:42 BP 116 / 47; Pulse 54; Resp 16; Pulse Ox 100% on 2 lpm NC; tw2 11:48 Body Mass Index 23.49 (68.04 kg, 170.18 cm) ss 11:52 provider notified. tw2 12:30 provider notified, iv fluids on pressure bag. no further orders at this time. tw2 12:38 provider notified. no further orders at this time. tw2 12:45 provider notified. tw2 ED Course: 11:39 Patient arrived in ED. as 11:42 Lilly Montana, RN is Primary Nurse. ap3 11:42 Arturo Ortega MD is Attending Physician. rn 11:48 One on one care continued for now until patients status resolves. ap3 11:48 Patient is placed in psych hold. ap3 11:53 Triage completed. ss 11:54 Arm band placed on right wrist. ss 11:56 Bed in low position. Call light in reach. pvc monitor on. Pulse ox on. NIBP on. tw2 12:10 Inserted saline lock: 20 gauge in left antecubital area, using aseptic technique. ap3 12:49 Pt visited by father. ap3 13:31 Assisted provider with central line placement. Set up central line tray. Triple lumen ap3 line placed in right femoral. Line placed by Arturo Ortega MD Placement verified by blood return, Dressed with Tegaderm, Patient tolerated well. Before procedure, did Practitioner(s) obtain informed consent? Yes. Patient \\T\\ family education about procedure, CLABSI prevention and S/S of infection? Yes. Time-out/Briefing performed prior to start of procedure? Yes. Was handwashing/sanitizing done immediately prior to procedure? Yes. Was patient positioned to in a way to prevent air embolism? Yes. Was procedure site sterilized? Yes, with chlorhexidine. Was the site allowed to dry? Yes. Was local anesthetic and/or sedation utilized? Yes. During the procedure, did the Practitioner(s) maintain a sterile field? Yes. Were unused ports clamped during insertion? Yes. Was blood aspirated from each lumen? Yes. After the procedure, did the Practitioner(s) clean the site and apply a sterile dressing? Yes. 13:43 Ann cath inserted, using sterile technique, 16 Fr., by sd, balloon inflated, to ap3 gravity drainage, returned no return at this time. Patient tolerated well. DEN Escobedo served as glass breaker. 14:18 initiated transfer to [facility]. bd 18:52 Patient transferred, IV remains in place. ap3 Administered Medications: 11:59 Drug: NS 0.9% 1000 ml Route: IV; Rate: 1000 ml; Site: right forearm; ap3 13:00 Follow up: IV Status: Completed infusion; IV Intake: 1000ml tw2 12:00 Drug: ProTONIX (pantoprazole) 40 mg Route: IVP; Site: right forearm; ap3 13:17 Follow up: Response: No adverse reaction ap3 12:00 Drug: NS 0.9% 1000 ml Route: IV; Rate: 1000 ml; Site: right forearm; ap3 13:10 Follow up: IV Status: Completed infusion; IV Intake: 1000ml ap3 12:00 Drug: Zofran (Ondansetron) 4 mg Route: IVP; Site: right forearm; ap3 13:17 Follow up: Response: No adverse reaction ap3 12:39 Drug: Calcium Gluconate 1 grams Route: IVPB; Infused Over: 60 mins; Site: right forearm;ap3 13:17 Follow up: IV Status: Completed infusion ap3 13:20 Drug: NS 0.9% 1000 ml Route: IV; Rate: 1000 ml; Site: left forearm; tw2 14:00 Follow up: IV Status: Completed infusion; IV Intake: 1000ml ss 13:31 Drug: Magnesium Sulfate 1 grams Route: IVPB; Infused Over: 1 hrs; Site: right forearm; tw2 14:30 Follow up: IV Status: Completed infusion ss 13:49 CANCELLED (Duplicate Order): D50W 50 ml IVP once; (1 amp) rn 13:50 Drug: Levophed (norepinephrine) (4 mg/250 mL D5W 4 mcg/min Route: IV; Rate: calculated ap3 rate; Site: right femoral; 14:06 Follow up: Rate change 10 mcg/min tw2 14:19 Follow up: Rate change 15 mcg/min ap3 14:38 Follow up: Rate change 20 mcg/min ap3 15:05 Follow up: Rate change 25 mcg/min tw2 16:39 Follow up: IV Status: Infusion continued upon transfer; Infusion continued upon tw2 transfer. [facility] asked for additional bag of Levophed \\T\\ 1L NS for EMS ride to [place]. 13:55 CANCELLED (Duplicate Order): Glucagon 1 mg IVP once rn 13:58 Drug: Glucagon 3 mg Route: IVP; Site: left forearm; tw2 14:20 Follow up: Response: Other ap3 14:15 Drug: Atropine 0.5 mg Route: IVP; Site: right femoral; ss 14:20 Follow up: Response: No adverse reaction ap3 Intake: 13:00 IV: 1000ml; Total: 1000ml. tw2 13:10 IV: 1000ml; Total: 2000ml. ap3 14:00 IV: 1000ml; Total: 3000ml. ss Outcome: 14:50 ER care complete, transfer ordered by . rn 16:43 Patient left the ED. tw2 18:52 Transferred by ground EMS to [facility]. ap3 18:52 Condition: stable 18:52 Discharge instructions given to patient, family, Instructed on the need for transfer. Signatures: Berna Segovia Amelia as Nieto, Roman, MD MD rn Smirch, Shelby, RN RN ss Fanny Abreu RN RN tw2 Lilly Montana RN RN ap3 Corrections: (The following items were deleted from the chart) 14:07 14:06 Reassessment: Patient actively vomiting, emeses bag provided. Emeses appears ap3 bloody. Provider notified ap3 14:10 13:43 Ann cath inserted, using sterile technique, 16 Fr., by me, balloon inflated, to ap3 gravity drainage, returned no return at this time. Patient tolerated well. ap3
[2021-06-16 17:01] VITALS: O2SAT 100
[2021-06-16 17:04] VITALS: TEMP 97.5
[2021-06-16 17:26] VITALS: BP 116/47
--- NOTE | 2021-06-21 18:36 | EKG ---
Test Date: 2021-06-16 Test Time: 11:46:41 Automobile Service Advisor: SURESH MEASUREMENT RESULTS: Intervals: Rate: 55 [place]: QRSD: 122 QT: 492 QTc: 470 [place]: P: [place]: QRS: 86 T: 51 INTERPRETIVE STATEMENTS: Wide QRS rhythm RSR' or QR pattern in V1 suggests right ventricular conduction delay Nonspecific T wave abnormality Abnormal ECG Compared to ECG 05/31/2021 21:48:53 Uncertain supraventricular rhythm now present RSR' in V1 or V2 now present Sinus tachycardia no longer present Possible ischemia no longer present T-wave abnormality still present Electronically Signed On 06-21-21 18:26:10 BOILER ASSISTANT OPERATOR by Sachin Currie
--- NOTE | 2021-06-21 18:36 | EKG ---
Test Date: 2021-06-16 Test Time: 15:05:03 White Work Cleaner: SUGEY MEASUREMENT RESULTS: Intervals: Rate: 53 MS: 192 QRSD: 136 QT: 456 QTc: 427 [place]: P: 84 MS: 192 QRS: -56 T: 81 INTERPRETIVE STATEMENTS: sinus rhythm 1st degree av bliock Right bundle branch block Left anterior fascicular block Bifascicular block Left ventricular hypertrophy with repolarization abnormality Abnormal ECG Compared to ECG 06/16/2021 12:56:35 Right bundle-branch block now present Left anterior fascicular block now present ifascicular block now present T-wave abnormality no longer present Prolonged QT interval no longer present Electronically Signed On 06-21-21 18:26:08 BLOCK PRESS OPERATOR by Sachin Currie
--- OUTSIDE RECORDS SUMMARY | 2021-06-26 09:41 | XMS REPORT | Continuity of Care Document ---
:2000 Author Organization Formerly [facility] t Address [address] [place] [address] Care Team Providers Name Role Phone Padmini Dill Primary Care Physician Padmini Dill Attending Clinician JAXON Attending Clinician Unavailable HAYDE OBRIEN Attending Clinician Unavailable HAYDE OBRIEN Admitting Clinician Unavailable Payers Payer Name Policy Type Policy Number Effective Date Expiration Date [facility] [id number] 2018 CHOICE EXCHANGE 00:00:00 Problems This patient has no known problems. Allergies, Adverse Reactions, Alerts Allergy Allergy Status Severity Reaction(s) Onset Inactive Treating Comm ents Source Name Type Date Date Clinician NO KNOWN Allergy Active [facility] Social History Social Habit Start Date Stop Date Quantity Comments Source Sex Assigned At [birth year] [facility] 00:00:00 00:00:00 Medical Branch Smoking Status Start Date Stop Date Source Unknown if ever smoked [facility] Medical [place] Medications Ordered Filled Start Stop Current Ordering Indication Dosage Frequency Signature Comments Components Source Medication Medication Date Date Medication? Clinician (SIG) Name Name lisdexamfet Yes One po q Un katelyn amine 8-16 am ity of (VYVANSE) 00:00: [place] 30 mg 00 [facility] Branch Immunizations Ordered Filled Immunization Date Status Comments Sour e Immunization Name Name Varicella 2007-02-23 Completed [facility] (varivax)(chicken 00:00:00 [place] [facility] pox) [place] Influenza Virus 2004-07-20 Completed Universit y of Vaccine 00:00:00 [facility] Pneumococcal 7 2003-12-10 Completed [facility] Conjugate, PCV7 00:00:00 [facility] ical (Prevnar7) [place] Polio (IPV/OPV) 2003-12-10 Completed Universit y of 00:00:00 [facility] DTAP 2003-12-10 Completed University of 00:00:00 [facility] HIB 4 Dose Schedule 2003-12-10 Completed Unive rsity of 00:00:00 [facility] Influenza Virus 2003-09-03 Completed Universit y of Vaccine 00:00:00 [facility] Influenza Virus 2003-07-22 Completed Universit y of Vaccine 00:00:00 [facility] Vital Signs Vital Name Observation Time Observation Value Comments Source WEIGHT 2021-06-17 05:00:00 66.1 kg HEIGHT 2021-06-17 01:00:00 170.2 cm WEIGHT 2021-06-17 05:00:00 66.1 kg HEIGHT 2021-06-17 01:00:00 170.2 cm Procedures This patient has no known procedures. Encounters Start End Encounter Admission Attending Care Care Encounter Source Date/Time Date/Time Type Type Clinicians Facility Department ID 2021-06-22 2021-06-22 JUDSON Callaway [id number] 19 Univers 00:00:00 00:00:00 (Out) Lux KEARNEY [id number] ity [facility] [id number] Nicholas as [phone] [place] [id number] Branch 2021-06-16 2021-06-19 Inpatient ER [facility] Cardiology 2 [id number] [facility] 17:57:00 10:58:00 , IDALIA Results Test Description Test Time Test Comments Results Result Comments Source MAGNESIUM 2021-06-19 06:52:09 Test Item Value Reference Range Interpretation Comme nts MAGNESIUM (BEAKER) (test code = 627) 1.7 mg/dL 1.6-2.6 Specimen slightly hemolyzed [employer] Developer ID - PIAYA LBASIC METABOLIC [id number] 06:52:09 Test Item Value Reference Range Interpretation Comments SODIUM (BEAKER) 138 meq/L 136-145 (test code = 381) POTASSIUM (BEAKER) 4.1 meq/L 3.5-5.1 Specimen slightly (test code = 379) hemolyzed CHLORIDE (BEAKER) 106 meq/L 98-107 (test code = 382) CO2 (BEAKER) (test 24 meq/L 22-29 code = 355) BLOOD UREA NITROGEN 13 mg/dL 7-21 (BEAKER) (test code = 354) CREATININE (BEAKER) 0.73 mg/dL 0.57-1.25 Specimen slightly (test code = 358) hemolyzed GLUCOSE RANDOM 80 mg/dL 70-105 (BEAKER) (test code = 652) CALCIUM (BEAKER) 8.3 mg/dL 8.4-10.2 L (test code = 697) EGFR (BEAKER) (test 138 mL/min/1.73 ESTIM ATED GFR IS code = 1092) sq m NOT ACCURATE CREATININE CLEARANCE IN PREDICTING GLOMERULAR FILTRATION RATE . ESTIMATED GFR I S NOT APPLICABLE FOR DIALYSIS PATIEN TS. [employer] Developer ID - PIAYA LCBC (HEMOGRAM ONLY)2021-06-19 06:16:29 Test Item Value Reference Range Interpretation Comments WHITE BLOOD CELL COUNT (BEAKER) 4.5 K/ L 3.5-10.5 (test code = 775) RED BLOOD CELL COUNT (BEAKER) 4.24 M/ L 4.63-6.08 L (test code = 761) HEMOGLOBIN (BEAKER) (test code = 13.5 GM/DL 13.7-17.5 L 410) HEMATOCRIT (BEAKER) (test code = 38.3 % 40.1-51.0 L 411) MEAN CORPUSCULAR VOLUME (BEAKER) 90.3 fL 79.0-92.2 (test code = 753) MEAN CORPUSCULAR HEMOGLOBIN 31.8 pg 25.7-32.2 (BEAKER) (test code = 751) MEAN CORPUSCULAR HEMOGLOBIN CONC 35.2 GM/DL 32.3-36.5 (BEAKER) (test code = 752) RED CELL DISTRIBUTION WIDTH 11.9 % 11.6-14.4 (BEAKER) (test code = 412) PLATELET COUNT (BEAKER) (test 200 K/CU MM 150-450 code = 756) MEAN PLATELET VOLUME (BEAKER) 10.1 fL 9.4-12.4 (test code = 754) NUCLEATED RED BLOOD CELLS 0 /100 WBC 0-0 (BEAKER) (test code = 413) [id number] 06:19:22 Test Item Value Reference Range Interpretation Comments MAGNESIUM (BEAKER) 1.7 mg/dL 1.6-2.6 Specimen slightly (test code = 627) hemolyzed [employer] Developer ID - PIAYA LBASIC METABOLIC [id number] 06:19:22 Test Item Value Reference Range Interpretation Comments SODIUM (BEAKER) 137 meq/L 136-145 (test code = 381) POTASSIUM (BEAKER) 4.1 meq/L 3.5-5.1 Specimen slightly (test code = 379) hemolyzed CHLORIDE (BEAKER) 109 meq/L 98-107 H (test code = 382) CO2 (BEAKER) (test 21 meq/L 22-29 L code = 355) BLOOD UREA NITROGEN 14 mg/dL 7-21 (BEAKER) (test code = 354) CREATININE (BEAKER) 0.87 mg/dL 0.57-1.25 Specimen slightly (test code = 358) hemolyzed GLUCOSE RANDOM 94 mg/dL 70-105 (BEAKER) (test code = 652) CALCIUM (BEAKER) 8.1 mg/dL 8.4-10.2 L (test code = 697) EGFR (BEAKER) (test 113 mL/min/1.73 ESTIM ATED GFR IS code = 1092) sq m NOT ACCURATE CREATININE CLEARANCE IN PREDICTING GLOMERULAR FILTRATION RATE . ESTIMATED GFR I S NOT APPLICABLE FOR DIALYSIS PATIEN TS. [employer] Developer ID - PIAYA LCBC (HEMOGRAM ONLY)2021-06-18 05:30:48 Test Item Value Reference Range Interpretation Comments WHITE BLOOD CELL COUNT (BEAKER) 8.2 K/ L 3.5-10.5 (test code = 775) RED BLOOD CELL COUNT (BEAKER) 3.97 M/ L 4.63-6.08 L (test code = 761) HEMOGLOBIN (BEAKER) (test code = 12.6 GM/DL 13.7-17.5 L 410) HEMATOCRIT (BEAKER) (test code = 35.8 % 40.1-51.0 L 411) MEAN CORPUSCULAR VOLUME (BEAKER) 90.2 fL 79.0-92.2 (test code = 753) MEAN CORPUSCULAR HEMOGLOBIN 31.7 pg 25.7-32.2 (BEAKER) (test code = 751) MEAN CORPUSCULAR HEMOGLOBIN CONC 35.2 GM/DL 32.3-36.5 (BEAKER) (test code = 752) RED CELL DISTRIBUTION WIDTH 12.3 % 11.6-14.4 (BEAKER) (test code = 412) PLATELET COUNT (BEAKER) (test 190 K/CU MM 150-450 code = 756) MEAN PLATELET VOLUME (BEAKER) 10.4 fL 9.4-12.4 (test code = 754) NUCLEATED RED BLOOD CELLS 0 /100 WBC 0-0 (BEAKER) (test code = 413) SARS-COV2/RT-PCR ([facility])2021-06-17 11:38:36 Test Item Value Reference Range Interpretation Comments SARS-COV2/RT-PCR (test Negative Not Detected, Negative, code = 6118589) See external report for linked test SARS-COV-2 PERFORMING [facility] (test code = 4107656) Negative result for this test determines that SARS-CoV-2 RNA was not present in the specimen above the Limit of Detection (LOD). However, Negative results do not preclude SARS-CoV-2 infection and should not be used as the sole basis for treatment or patient management decisions. Negative results mustbe combined with clinical observations, patient history, and epidemiological information. A false negative result may occur if a specimen is improperly collected, transported or handled. A false negative result should be considered if patient's recent exposures or clinical presentation indicate that COVID-19 (SARS-CoV-2) is likely and diagnostic tests for other causes of illness are negative. Re-testing should be considered in cases of suspected false negatives.The limit of detection for this assay is 800 copies/mL.This SARS CoV-2 test is a real-time RT-PCR test intended for the qualitative detection of nucleic acid from SARS-CoV-2 in a nasopharyngeal swab specimen collected from individuals susp ected of COVID-19 by their healthcare provider.This test has not been Food and Drug Administration (FDA) cleared or approved. This is a modified version of an approved Emergency Use Authorization (EUA) and is in the process of review by the FDA. Once authorized by the FDA, the issued EUA will be effective until the declaration that circumstances exist justifying the authorization of the emergency use of in vitro diagnostic tests for detection and/or diagnosis of COVID-19 is terminated under Section 564(b)(2) of the Act or the EUA is revoked under Section 564(g) of the Act.Fact Sheet for Healthcare Providers:https://www.[employer]/sites/default/files/product/documents/Fact_Shee t_PP_Eltmkmlpz_Fgfl_LBRV-DcO-5.pdfFact Sheet for Healthcare Patients:https://www.[employer]/sites/default/files/product/ documents/Zwgg_Jappa_Qnyajhxf_Gcaa_OHVD-EfW-8.pdfPerforming Laboratory:[facility], [place] [address]QMNZISW, IONIZED 2021-06-17 05:47:42 Test Item Value Reference Range Interpretation Comments CALCIUM IONIZED (BEAKER) (test 1.11 mmol/L 1.12-1.27 L code = 698) PH, BLOOD (BEAKER) (test code = 7.40 1810) CBC W/PLT COUNT & AUTO [id number] 05:39:53 Test Item Value Reference Range Interpretation Comments WHITE BLOOD CELL COUNT (BEAKER) 14.7 K/ L 3.5-10.5 H (test code = 775) RED BLOOD CELL COUNT (BEAKER) 4.11 M/ L 4.63-6.08 L (test code = 761) HEMOGLOBIN (BEAKER) (test code = 13.1 GM/DL 13.7-17.5 L 410) HEMATOCRIT (BEAKER) (test code = 37.0 % 40.1-51.0 L 411) MEAN CORPUSCULAR VOLUME (BEAKER) 90.0 fL 79.0-92.2 (test code = 753) MEAN CORPUSCULAR HEMOGLOBIN 31.9 pg 25.7-32.2 (BEAKER) (test code = 751) MEAN CORPUSCULAR HEMOGLOBIN CONC 35.4 GM/DL 32.3-36.5 (BEAKER) (test code = 752) RED CELL DISTRIBUTION WIDTH 12.0 % 11.6-14.4 (BEAKER) (test code = 412) PLATELET COUNT (BEAKER) (test 257 K/CU MM 150-450 code = 756) MEAN PLATELET VOLUME (BEAKER) 10.0 fL 9.4-12.4 (test code = 754) NUCLEATED RED BLOOD CELLS 0 /100 WBC 0-0 (BEAKER) (test code = 413) NEUTROPHILS RELATIVE PERCENT 80 % (BEAKER) (test code = 429) LYMPHOCYTES RELATIVE PERCENT 9 % (BEAKER) (test code = 430) MONOCYTES RELATIVE PERCENT 10 % (BEAKER) (test code = 431) EOSINOPHILS RELATIVE PERCENT 0 % (BEAKER) (test code = 432) BASOPHILS RELATIVE PERCENT 0 % (BEAKER) (test code = 437) NEUTROPHILS ABSOLUTE COUNT 11.78 K/ L 1.78-5.38 H (BEAKER) (test code = 670) LYMPHOCYTES ABSOLUTE COUNT 1.35 K/ L 1.32-3.57 (BEAKER) (test code = 414) MONOCYTES ABSOLUTE COUNT (BEAKER) 1.46 K/ L 0.30-0.82 H (test code = 415) EOSINOPHILS ABSOLUTE COUNT 0.02 K/ L 0.04-0.54 L (BEAKER) (test code = 416) BASOPHILS ABSOLUTE COUNT (BEAKER) 0.02 K/ L 0.01-0.08 (test code = 417) IMMATURE GRANULOCYTES-RELATIVE 0 % 0-1 PERCENT (BEAKER) (test code = 2801) SALICYLATE [id number] 04:53:40 Test Item Value Reference Range Interpretation Comments SALICYLATE LEVEL (BEAKER) (test code < mg/dL 15.0-30.0 L = 764) Therapeutic Range: 15.0-30.0 mg/dLToxic: >30.0 mg/dL L[place]al: >70.0 mg/dLHEPATIC FUNCTION PANEL 2021-06-17 03:46:03 Test Item Value Reference Range Interpretation Comments TOTAL PROTEIN (BEAKER) 5.7 gm/dL 6.0-8.3 L Speci men slightly (test code = 770) hemolyzed ALBUMIN (BEAKER) (test 3.5 g/dL 3.5-5.0 Speci men slightly code = 1145) hemolyzed BILIRUBIN TOTAL 0.5 mg/dL 0.2-1.2 Specimen sli ghtly (BEAKER) (test code = hemoly zed 377) BILIRUBIN DIRECT 0.3 mg/dL 0.1-0.5 Specimen sl ightly (BEAKER) (test code = hemoly zed 706) ALKALINE PHOSPHATASE 47 U/L 40-150 (BEAKER) (test code = 346) AST (SGOT) (BEAKER) 17 U/L 5-34 Specimen slightly (test code = 353) hemolyzed ALT (SGPT) (BEAKER) 12 U/L 6-55 Specimen slightly (test code = 347) hemolyzed [employer] Developer ID - GITA MOperator ID - GITA [id number] 03:30:59 Test Item Value Reference Range Interpretation Comments PHOSPHORUS (BEAKER) 4.9 mg/dL 2.3-4.7 H Specimen slightly (test code = 604) hemolyzed [employer] Developer ID - GITA MBASIC METABOLIC [id number] 03:30:59 Test Item Value Reference Range Interpretation Comments SODIUM (BEAKER) 142 meq/L 136-145 (test code = 381) POTASSIUM (BEAKER) 3.7 meq/L 3.5-5.1 Specimen slightly (test code = 379) hemolyzed CHLORIDE (BEAKER) 110 meq/L 98-107 H (test code = 382) CO2 (BEAKER) (test 20 meq/L 22-29 L code = 355) BLOOD UREA NITROGEN 16 mg/dL 7-21 (BEAKER) (test code = 354) CREATININE (BEAKER) 1.84 mg/dL 0.57-1.25 H Specimen slightly (test code = 358) hemolyzed GLUCOSE RANDOM 116 mg/dL 70-105 H (BEAKER) (test code = 652) CALCIUM (BEAKER) 8.4 mg/dL 8.4-10.2 (test code = 697) EGFR (BEAKER) (test 48 mL/min/1.73 ESTIMA LUZ GFR IS code = 1092) sq m NOT ACCURATE CREATININE CLEARANCE IN PREDICTING GLOMERULAR FILTRATION RATE . ESTIMATED GFR I S NOT APPLICABLE FOR DIALYSIS PATIEN TS. [employer] Developer ID - GITA [id number] 03:30:58 Test Item Value Reference Range Interpretation Comments MAGNESIUM (BEAKER) 2.2 mg/dL 1.6-2.6 Specimen slightly (test code = 627) hemolyzed [employer] Developer ID - GITA MACETAMINOPHEN [id number] 03:29:16 Test Item Value Reference Range Interpretation Comments ACETAMINOPHEN LEVEL (BEAKER) (test < ug/mL 10.0-30.0 L code = 344) Therapeutic Range: 10.0-30.0 g/mLToxic Levels: >200.0 g/mLOperator ID - GITA [id number] 03:24:36 Test Item Value Reference Range Interpretation Comments PARTIAL THROMBOPLASTIN TIME 27.9 seconds 22.5-36.0 (BEAKER) (test code = 760) PROTHROMBIN [id number] 03:23:58 Test Item Value Reference Range Interpretation Comments PROTIME (BEAKER) 15.5 seconds 11.9-14.2 H (test code = 759) INR (BEAKER) (test 1.25 See_Comment [Automat ed message] code = 370) The system [employer] generated this result transmitted ref erence range: <=5.90. The reference range was not used to int erpret this result as normal/abnormal . RECOMMENDED COUMADIN/WARFARIN INR THERAPY RANGESSTANDARD DOSE: 2.0 - 3.0 Includes: PROPHYLAXIS forvenous thrombosis, systemic embolization; TREATMENT for venous thrombosis and/or pulmonary embolus.HIGH RISK: Target INR is 2.5-3.5 for patients with mechanical heart valves.CALCIUM, [id number] 03:06:28 Test Item Value Reference Range Interpretation Comments CALCIUM IONIZED (BEAKER) (test 1.10 mmol/L 1.12-1.27 L code = 698) PH, BLOOD (BEAKER) (test code = 7.39 9920) BLOOD GAS, [id number] 21:18:09 Test Item Value Reference Range Interpretation Comments PH VENOUS (BEAKER) (test code = 7.42 7.32-7.42 701) PCO2 VENOUS (BEAKER) (test code = 37 mm Hg 41-51 L 755) PO2 VENOUS (BEAKER) (test code = 47 mm Hg 25-40 H 702) O2 SATURATION VENOUS (BEAKER) 83.9 % 40.0-70.0 H (test code = 703) HCO3 VENOUS (BEAKER) (test code = 24 mmol/L 21-29 705) BASE EXCESS VENOUS (BEAKER) (test -0.8 mmol/L -2.0-3.0 code = 704) PATIENT TEMPERATURE (BEAKER) 36.8 (test code = 1818) FIO2 (BEAKER) (test code = 1819) 21.0 RAD, CHEST, 1 VIEW, NON [id number] 20:03:00Reason for exam:- >overdoseShould this be performed at the bedside?->Yes [facility] 2000 Sex: MFINAL REPORT AP view of the chest dated 06/16/2021 CLINICAL INFORMATION: overdose Comment: Heart is normal in size. Pulmonary vasculature is unremarkable. Lungs are clear.No pulmonary infiltrate or pleural effusion is present. Impression: No active cardiopulmonary disease. Signed: Kailey De La Torre Verified Date/Time: 06/16/2021 20:03:47 COMPREHENSIVE METABOLIC PANEL 2021-06-16 19:34:06 Test Item Value Reference Range Interpretation Comments TOTAL PROTEIN 6.3 gm/dL 6.0-8.3 Specimen sligh tly (BEAKER) (test code = hemoly zed 770) ALBUMIN (BEAKER) 3.8 g/dL 3.5-5.0 Specimen sl ightly (test code = 1145) hemolyzed ALKALINE PHOSPHATASE 52 U/L 40-150 (BEAKER) (test code = 346) BILIRUBIN TOTAL 0.9 mg/dL 0.2-1.2 Specimen sli ghtly (BEAKER) (test code = hemoly zed 377) SODIUM (BEAKER) (test 141 meq/L 136-145 code = 381) POTASSIUM (BEAKER) 3.9 meq/L 3.5-5.1 Specimen slightly (test code = 379) hemolyzed CHLORIDE (BEAKER) 110 meq/L 98-107 H (test code = 382) CO2 (BEAKER) (test 18 meq/L 22-29 L code = 355) BLOOD UREA NITROGEN 19 mg/dL 7-21 (BEAKER) (test code = 354) CREATININE (BEAKER) 2.73 mg/dL 0.57-1.25 H Specimen slightly (test code = 358) hemolyzed GLUCOSE RANDOM 141 mg/dL 70-105 H (BEAKER) (test code = 652) CALCIUM (BEAKER) 8.2 mg/dL 8.4-10.2 L (test code = 697) AST (SGOT) (BEAKER) 22 U/L 5-34 Specimen slightly (test code = 353) hemolyzed ALT (SGPT) (BEAKER) 15 U/L 6-55 Specimen slightly (test code = 347) hemolyzed EGFR (BEAKER) (test 30 mL/min/1.73 ESTIMA LUZ GFR IS code = 1092) sq m NOT ACCURATE CREATININE CLEARANCE IN PREDICTING GLOMERULAR FILTRATION RATE . ESTIMATED GFR I S NOT APPLICABLE FOR DIALYSIS PATIEN TS. [employer] Developer ID - [id number] 19:34:05 Test Item Value Reference Range Interpretation Comments MAGNESIUM (BEAKER) 1.8 mg/dL 1.6-2.6 Specimen slightly (test code = 627) hemolyzed [employer] Developer ID - [id number] 19:34:05 Test Item Value Reference Range Interpretation Comments PHOSPHORUS (BEAKER) 1.7 mg/dL 2.3-4.7 L Specimen slightly (test code = 604) hemolyzed [employer] Developer ID - BS(CELLAVISION MANUAL DIFF)2021-06-16 19:33:16 Test Item Value Reference Range Interpretation Comments NEUTROPHILS - REL 90 % (CELLAVISION)(BEAKER) (test code = 2816) LYMPHOCYTES - REL 3 % (CELLAVISION)(BEAKER) (test code = 2817) MONOCYTES - REL 7 % (CELLAVISION)(BEAKER) (test code = 2818) NEUTROPHILS - ABS 15.39 K/ul 1.78-5.38 H (CELLAVISION)(BEAKER) (test code = 2830) LYMPHOCYTES - ABS 0.51 K/ul 1.32-3.57 L (CELLAVISION)(BEAKER) (test code = 2831) MONOCYTES - ABS 1.20 K/uL 0.30-0.82 H (CELLAVISION)(BEAKER) (test code = 2832) TOTAL COUNTED (BEAKER) (test code 100 = 1351) RBC MORPHOLOGY (BEAKER) (test code Normal = 762) WBC MORPHOLOGY (BEAKER) (test code Normal = 487) PLT MORPHOLOGY (BEAKER) (test code Normal = 486) ARTIFACT (CELLAVISION)(BEAKER) Present (test code = 3432) PLATELET CONCENTRATION Adequate (CELLAVISION)(BEAKER) (test code = 3438) [employer] Developer ID - Charlotte Tolliver comments: Slide comments:CBC W/PLT COUNT & AUTO [id number] 19:03:21 Test Item Value Reference Range Interpretation Comments WHITE BLOOD CELL COUNT (BEAKER) 17.1 K/ L 3.5-10.5 H (test code = 775) RED BLOOD CELL COUNT (BEAKER) 4.37 M/ L 4.63-6.08 L (test code = 761) HEMOGLOBIN (BEAKER) (test code = 13.9 GM/DL 13.7-17.5 410) HEMATOCRIT (BEAKER) (test code = 38.4 % 40.1-51.0 L 411) MEAN CORPUSCULAR VOLUME (BEAKER) 87.9 fL 79.0-92.2 (test code = 753) MEAN CORPUSCULAR HEMOGLOBIN 31.8 pg 25.7-32.2 (BEAKER) (test code = 751) MEAN CORPUSCULAR HEMOGLOBIN CONC 36.2 GM/DL 32.3-36.5 (BEAKER) (test code = 752) RED CELL DISTRIBUTION WIDTH 11.8 % 11.6-14.4 (BEAKER) (test code = 412) PLATELET COUNT (BEAKER) (test 262 K/CU MM 150-450 code = 756) MEAN PLATELET VOLUME (BEAKER) 9.6 fL 9.4-12.4 (test code = 754) NUCLEATED RED BLOOD CELLS 0 /100 WBC 0-0 (BEAKER) (test code = 413) NEUTROPHILS RELATIVE PERCENT 81 % (BEAKER) (test code = 429) LYMPHOCYTES RELATIVE PERCENT 5 % (BEAKER) (test code = 430) MONOCYTES RELATIVE PERCENT 13 % (BEAKER) (test code = 431) EOSINOPHILS RELATIVE PERCENT 0 % (BEAKER) (test code = 432) BASOPHILS RELATIVE PERCENT 0 % (BEAKER) (test code = 437) NEUTROPHILS ABSOLUTE COUNT 13.90 K/ L 1.78-5.38 H (BEAKER) (test code = 670) LYMPHOCYTES ABSOLUTE COUNT 0.83 K/ L 1.32-3.57 L (BEAKER) (test code = 414) MONOCYTES ABSOLUTE COUNT (BEAKER) 2.28 K/ L 0.30-0.82 H (test code = 415) EOSINOPHILS ABSOLUTE COUNT 0.00 K/ L 0.04-0.54 L (BEAKER) (test code = 416) BASOPHILS ABSOLUTE COUNT (BEAKER) 0.02 K/ L 0.01-0.08 (test code = 417) IMMATURE GRANULOCYTES-RELATIVE 1 % 0-1 PERCENT (BEAKER) (test code = 9635)
== END 2021-06-16 16:43 | disposition short-term general hospital (02) ==
LOC: ER 11:39
PROC: 06HM33Z Insertion of Infusion Device into Right Femoral Vein, Percutaneous Approach (ICD-10-PCS; principal; 2021-06-16)
DX: T46.1X2A Poisoning by calcium-channel blockers, intentional self-harm, initial encounter (principal); I95.9 Hypotension, unspecified; I44.2 Atrioventricular block, complete; Z20.822 Contact with and (suspected) exposure to COVID-19
CPT/HCPCS: 93005 ×3; 85025; 80048; 36415; 80320; 80329 ×2; 85610; 80076; 85730; 51702; 99291; 36556; U0003; J1610 ×3; C9113; J3475; J0610; J7030 ×3; J2405

== ENCOUNTER 2022-04-28 18:52 | Emergency (ER) | payer OTHER, SELFPAY ==
--- OUTSIDE RECORDS SUMMARY | 2022-04-28 18:55 | XMS REPORT | Continuity of Care Document ---
:2000 Author Organization [facility] t Address [address] [place] [address] [address]. [address] [place] [address] Care Team Providers Name Role Phone Fuentes HERNANDEZ MD, Lux [place] Primary Care Physician [phone] HORACIO COATES Attending Clinician Unavailable Broderick Birmingham MD, David Garvin Attending Clinician [phone] José CASTILLO, Kelly Piper Attending Clinician [phone] Horacio Coates MD Attending Clinician DAVID CUELLAR Attending Clinician Unavailable DAVID CUELLAR Admitting Clinician Unavailable Payers Payer Name Policy Type Policy Number Effective Date Expiration Date [facility] [id number] 2018 CHOICE EXCHANGE 00:00:00 Problems Condition Condition Condition Status Onset Resolution Last Treating Co mments Source Name Details Category Date Date Treatment Clinician Date Intentiona Intentiona Disease Active 2020-[address] l overdose l overdose 1-03 Janine kes of drug in of drug in 00:00: Me dical tablet tablet 00 Center form form Allergies, Adverse Reactions, Alerts Allergy Allergy Status Severity Reaction(s) Onset Inactive Treating Comm ents Source Name Type Date Date Clinician NO KNOWN Allergy Active [facility] Family History Family Member Diagnosis Comments Start Date Stop Date Source Natural Formerly [facility] Social History Social Habit Start Date Stop Date Quantity Comments Source History SDOH [facility] Dr[facility] History SDOH [facility] Alcohol Binge Medical Joey ter History SDOH [facility] C enter Alcohol intake 2021-06-17 2021-06-17 Lifetime [facility] St Kylee es 00:00:00 00:00:00 non-drinker Medical Cent[facility] (finding) History SDOH 2021-06-17 2021-06-[address] [facility] Alcohol Frequency 00:00:00 00:00:00 Medical Center Tobacco use and 2017-12-07 2017-12-07 Smokeless tobacco Me [facility] exposure 00:00:00 00:00:00 non-user Hospital Sex Assigned At 2000 [address] [facility] [address] Janine kes 00:00:00 00:00:00 Medical Center Smoking Status Start Date Stop Date Source Never smoker [facility] Medications Ordered Filled Start Stop Current Ordering Indication Dosage Frequency Signature Comments Components Source Medication Medication Date Date Medication? Clinician (SIG) Name Name No known No No known Metho di medications 12-[address] 14:39: s [facility]osp[facility] 40 l Vital Signs Vital Name Observation Time Observation Value Comments Source WEIGHT 2021-06-17 05:00:00 66.1 kg HEIGHT 2021-06-17 01:00:00 170.2 cm WEIGHT 2021-06-17 05:00:00 66.1 kg HEIGHT 2021-06-17 01:00:00 170.2 cm WEIGHT 2021-06-17 05:00:00 66.1 kg HEIGHT 2021-06-17 01:00:00 170.2 cm Systolic blood 2021-06-19 07:45:00 129 mm[Hg] [facility] Diastolic blood 2021-06-19 07:45:00 81 mm[Hg] [facility] S t [facility] Heart rate 2021-06-19 07:45:00 74 /min [facility] Body temperature 2021-06-19 07:45:00 37 Angie [facility] Respiratory rate 2021-06-19 07:45:00 17 /min [facility] Oxygen saturation in 2021-06-19 07:45:00 97 /min [facility] Arterial blood by Medical Ce nter Pulse oximetry Body weight 2021-06-17 05:00:00 66.1 kg [facility] BMI 2021-06-17 05:00:00 22.82 kg/m2 [facility] Body height 2021-06-17 01:00:00 170.2 cm [facility] Procedures Procedure Date / Time Performed Performing Clinician [facility] e CBC (HEMOGRAM ONLY) 2021-06-19 05:51:00 Kavita Liang [facility] BASIC METABOLIC PANEL (7) 2021-06-19 05:51:00 Kavita Liang [facility] MAGNESIUM 2021-06-19 05:51:00 Kavita Liang [facility] BASIC METABOLIC PANEL (7) 2021-06-18 05:12:00 Kelly Kumar [facility] MAGNESIUM 2021-06-18 05:12:00 José [facility] CBC (HEMOGRAM ONLY) 2021-06-18 05:12:00 José [facility] SARS-COV2/RT-PCR ([facility] & 2021-06-17 05:16:00 Vahid Calderon [facility] REF LABS) [facility] CBC W/PLT COUNT & AUTO 2021-06-17 05:04:00 [facility] Adilene [place] DIFFERENTIAL [facility] CALCIUM, IONIZED 2021-06-17 05:04:00 Austin Salas [facility] CBC W/PLT COUNT & AUTO 2021-06-17 05:04:00 [facility]on [facility] DIFFERENTIAL [facility] BASIC METABOLIC PANEL (7) 2021-06-17 02:56:00 Austin Salas [facility] CALCIUM, IONIZED 2021-06-17 02:56:00 Austin Salas [facility] PHOSPHORUS 2021-06-17 02:56:00 Austin Salas [facility] MAGNESIUM 2021-06-17 02:56:00 Austin Salas [facility] HEPATIC FUNCTION PANEL 2021-06-17 02:56:00 Maritza Austin Blackmon [facility] ACETAMINOPHEN LEVEL 2021-06-17 02:56:00 [facility] PROTHROMBIN TIME/INR 2021-06-17 02:56:00 PamkettyAustin [facility] APTT 2021-06-17 02:56:00 Maritza Austin Blackmon [facility] BLOOD GAS, VENOUS 2021-06-16 21:09:00 [facility] W/[facility]T [facility] & AUTO 2021-06-16 18:50:[facility] DIFFERENTIAL [facility] COMPREHENSIVE METABOLIC 2021-06-16 18:50:00 Yumiko [facility] PANEL [facility] MAGNESIUM 2021-06-16 18:50:00 Yumiko [facility] PHOSPHORUS 2021-06-16 18:50:00 Yumiko [facility] CBC W/PLT COUNT & AUTO 2021-06-16 18:50:00 Renaldopb [facility] DIFFERENTIAL [facility] (CELLAVISION MANUAL DIFF) 2021-06-16 18:50:00 Renaldopb [facility] XR CHEST 1 VIEW PORTABLE 2021-06-16 18:38:00 [facility] / BEDSIDE [facility] EKG-SCANNED 2021-06-16 00:00:00 Provider, Julio Cesar [facility] Plan of Care Planned Activity Planned Date Details Comments Source Future Scheduled 2022-04-15 COVID-[facility]ACCINE [facility] 18:04:35 (#1) [code = COVID-19 VACCINE (#1)] Future Scheduled 2022-04-15 INFLUENZA VACCINE [facility] Test 18:04:35 [code = INFLUENZA VACCINE] Future Scheduled 2022-04-15 HEPATITIS B VACCINES Met [facility] Test 18:04:35 (1 of 3 - 3-dose series) [code = HEPATITIS B VACCINES (1 of 3 - 3-dose series)] Future Scheduled 2022-04-[address] [facility] Test 00:00:00 (#1) [code = [facility] INFLUENZA VACCINE (#1)] Future Scheduled 2021-08-[address] [facility] Test 00:00:00 (12+) [code = [facility] DEPRESSION SCREENING (12+)] Future Scheduled 2020 DTAP/TDAP/TD [facility] Test 00:[facility]:00 VACCINES (2 - Tdap) [facility] [code = DTAP/TDAP/TD VACCINES (2 - Tdap)] Future Scheduled 2019-11-[address] [facility] Test 00:00:00 SCREENING [code = [facility] HEPATITIS C SCREENING] Future Scheduled 2002-05-24 COVID-[address] [facility] Test 00:00:00 (#1) [code = [facility] COVID-19 VACCINE (#1)] Encounters Start End Encounter Admission Attending Care Care Encounter Source Date/Time Date/Time Type Type Clinicians Facility Department ID 2021-06-16 2021-06-19 Inpatient ER [facility] Cardiology 2 [id number] [facility] 17:57:00 10:58:00 , [facility] 2021-06-16 2021-06-19 Hospital David Cuellar [facility] [id number] [facility] St 17:57:00 10:58:00 Encounter Kelly Kumar [facility] 2021-06-17 2021-06-17 Travel [facility] [id number] [facility] 00[facility]00 [facility] Results Test Description Test Time Test Comments Results Result Comments Source Basic Metabolic Panel 2021-06-19 06:52:09 Test Item Value Reference Range Interpretation Comme nts Sodium (test code = 138 meq/L 525-067 9457-2) Potassium (test code = 4.1 meq/L 3.5-5.1 Speci men slightly 2823-3) hemolyzed Chloride (test code = 106 meq/L 98-107 2075-0) CO2 (test code = 2027-9) 24 meq/L 22-29 BUN (test code = 3094-0) 13 mg/dL 7-21 Creatinine (test code = 0.73 mg/dL 0.57-1.25 Spec imen slightly 2160-0) hemolyzed Glucose (test code = 80 mg/dL 70-105 2345-7) Calcium (test code = 8.3 mg/dL 8.4-10.2 L 48780-7) EGFR (test code = 50004-3) 138 mL/min/1.73 sq m ESTIMATED GFR IS NOT ACCURATE CREATININE LIANA KAREN IN PREDICTING GLOMERULAR FILT RATION RATE. ESTIMATED GFR IS NOT APPLICAB LE FOR DIALYSIS PATIEN TS. GUICHO (test code = GUICHO) Chemist Physical ID - PIAYA L Lab Interpretation (test Abnormal code = 65039-8) [facility]09 Test Item Value Reference Range Interpretation Comments Magnesium (test code = 1.7 mg/dL 1.6-2.6 Speci men 39915-5) slightly hemolyzed GUICHO (test code = GUICHO) Chemist Physical ID - PIAYA L Lab Interpretation Normal (test code = 64918-4) [facility] 06:52[facility]09 Test Item Value Reference Range Interpretation Comments MAGNESIUM (BEAKER) 1.7 mg/dL 1.6-2.6 Specimen slightly (test code = 627) hemolyzed Chemist Physical ID - PIAYA LBASIC METABOLIC [id number] 06:52:09 Test Item Value Reference Range Interpretation [...] S NOT APPLICABLE FOR DIALYSIS PATIEN TS. Chemist Physical ID - PIAYA LCBC (Hemogram only)2021-06-19 06:16:29 Test Item Value Reference Range Interpretation Comments WBC (test code = 6690-2) 4.5 See_Comment [A utomated message] The system Eveo generated this result transmitted ref erence range: 3.5 - 10 .5 K/L. The refe rence range was not u sed to interpret this result as normal/abnor mal. RBC (test code = 789-8) 4.24 See_Comment L [Au tomated message] The system Eveo generated this result transmitted ref erence range: 4.63 - 6 .08 M/L. The refe rence range was not u sed to interpret this result as normal/abnor mal. MCHC (test code = 786-4) 35.2 See_Comment L [A utomated message] The system Eveo generated this result transmitted ref erence range: 32.3 - 3 6.5 GM/DL. The refe rence range was not u sed to interpret this result as normal/abnor mal. Hematocrit (test code = 38.3 % 40.1-51.0 L 4544-3) MCV (test code = 787-2) 90.3 fL 79.0-92.2 MCH (test code = 785-6) 31.8 pg 25.7-32.2 RDW (test code = 788-0) 11.9 % 11.6-14.4 Platelets (test code = 200 See_Comment [Aut omated message] 777-3) The system Eveo generated this result transmitted ref erence range: 150 - 45 0 K/CU MM. The referen ce range was not u sed to interpret this result as normal/abnor mal. MPV (test code = 10.1 fL 9.4-12.4 94680-7) nRBC (test code = 413) 0 See_Comment [Aut omated message] The system Eveo generated this result transmitted ref erence range: 0 - 0 /1 00 WBC. The refere nce range was not u sed to interpret this result as normal/abnor mal. Lab Interpretation (test Abnormal code = 37291-2) [facility] (HEMOGRAM ONLY)2021-06-19 06:16:29 Test Item Value Reference [...] WBC 0-0 (BEAKER) (test code = 413) [id number] 06:19:22 Test Item Value Reference Range Interpretation Comments MAGNESIUM (BEAKER) 1.7 mg/dL 1.6-2.6 Specimen slightly (test code = 627) hemolyzed Chemist Physical ID - PIAYA LBASIC METABOLIC [id number] 06:19:22 Test Item Value Reference Range Interpretation [...] S NOT APPLICABLE FOR DIALYSIS PATIEN TS. Chemist Physical ID - PIAYA LCBC (HEMOGRAM ONLY)2021-06-18 05:30:48 [...] WBC 0-0 (BEAKER) (test code = 413) SARS-CoV2/RT-PCR (Asymptomatic ONLY)2021-06-17 11:38:36 Test Item Value Reference Range Interpretation Comments SARS-COV2/RT-PCR Negative Not Detected, (test code = Negative, See 57818-7) external report for linked test SARS-COV-2 [facility] JENNA PERFORMING LAB (test code = 95660-3) GUICHO (test code = Negative result for this GUICHO) test determines that SARS-CoV-2 RNA was not present in the specimen above the Limit of Detection (LOD). However, Negative results do not preclude SARS-CoV-2 infection and should not be used as the sole basis for treatment or patient management decisions. Negative results must be combined with clinical observations, patient history, and epidemiological information. A false negative result may occur if a specimen is improperly collected, transported or handled. A false negative result should be considered if patient's recent exposures or clinical presentation indicate that COVID-19 (SARS-CoV-2) is likely and diagnostic tests for other causes of illness are negative. Re-testing should be considered in cases of suspected false negatives. The limit of detection for this assay is 800 copies/mL. This SARS CoV-2 test is a real-time RT-PCR test intended for the qualitative detection of nucleic acid from SARS-CoV-2 in a nasopharyngeal swab specimen collected from individuals suspected of COVID-19 by their healthcare provider. This test has not been Food and Drug [...] is revoked under Section 564(g) of the Act. Fact Sheet for Healthcare Providers:https://www.Ante Up ideTripShake.Aspire/sites/default/f yee/product/documents/F act_Sheet_HC_Providers_L tqf_PQZG-GvZ-1.pdf Fact Sheet for Healthcare Patients:https://www.CrossMedia.Aspire/sites/default/fi les/product/documents/Fa ct_Sheet_Patients_Lyra_S ARS-CoV-2.pdf Performing Laboratory:[place] [address] [place] [address] [facility] REF [facility])2021-06-17 11:38:36 Test Item Value Reference Range Interpretation Comments SARS-COV2/RT-PCR (test Negative Not Detected, Negative, code = 1503910) See external report for linked test SARS-COV-[address] [facility] JENNA (test code = 4533459) Negative result for this test determines that SARS-CoV-2 RNA was not present in the specimen above the Limit of Detection (LOD). However, Negative results do not preclude SARS-CoV-2 infection and should not be used as the sole basis for treatment or patient management decisions. Negative results must be combined with clinical observations, patient history, and [...] a nasopharyngeal swab specimen collected from individuals suspected of COVID-19 by their healthcare provider.This test [...] justifying the authorization of the emergency use ofin vitro diagnostic tests for detection and/or diagnosis of COVID-19 is terminated under Section 564(b)(2) of the Act or the EUA is revoked under Section 564(g) of the Act.Fact Sheet for Healthcare Prov iders:https://www.BBOXX/sites/default/files/product/documents/Fact_Sheet_HC _Uujqzebml_Keih_CZBN-FmU-0.pdfFact Sheet for Healthcare Patients:https://www.Lambda Solutions.Aspire/sites/default/files/product/docume nts/Krln_Ugtmi_Oxyzzkth_Iimw_MZPT-CmK-3.pdfPerforming Laboratory:[facility], [place] [address]G[facility]htoc, Ionized 2021-06-17 05:47:42 Test Item Value Reference Range Interpretation Comments Calcium, Ion (test code = 1993-3) 1.11 mmol/L 1.12-1.27 L pH, Blood (test code = 04292-5) 7.40 Lab Interpretation (test code = Abnormal 38478-3) [facility] [id number] 05:47:42 Test Item Value Reference Range Interpretation Comments CALCIUM IONIZED (BEAKER) (test 1.11 mmol/L 1.12-1.27 L code = 698) PH, BLOOD (BEAKER) (test code = 7.40 1810) CBC with platelet count + automated [id number] 05:39:53 Test Item Value Reference Range Interpretation Comments WBC (test code = 6690-2) 14.7 See_Comment H [A utomated message] The system Eveo generated this result transmitted ref erence range: 3.5 - 10 .5 K/L. The refe rence range was not u sed to interpret this result as normal/abnor mal. RBC (test code = 789-8) 4.11 See_Comment L [Au tomated message] The system Eveo generated this result transmitted ref erence range: 4.63 - 6 .08 M/L. The refe rence range was not u sed to interpret this result as normal/abnor mal. MCHC (test code = 786-4) 35.4 See_Comment L [A utomated message] The system Eveo generated this result transmitted ref erence range: 32.3 - 3 6.5 GM/DL. The refe rence range was not u sed to interpret this result as normal/abnor mal. Hematocrit (test code = 37.0 % 40.1-51.0 L 4544-3) MCV (test code = 787-2) 90.0 fL 79.0-92.2 MCH (test code = 785-6) 31.9 pg 25.7-32.2 RDW (test code = 788-0) 12.0 % 11.6-14.4 Platelets (test code = 257 See_Comment [Aut omated message] 777-3) The system Eveo generated this result transmitted ref erence range: 150 - 45 0 K/CU MM. The referen ce range was not u sed to interpret this result as normal/abnor mal. MPV (test code = 10.0 fL 9.4-12.4 13576-7) nRBC (test code = 413) 0 See_Comment [Aut omated message] The system Eveo generated this result transmitted ref erence range: 0 - 0 /1 00 WBC. The refere nce range was not u sed to interpret this result as normal/abnor mal. % Neutros (test code = 80 % 429) % Lymphs (test code = 9 % 430) % Monos (test code = 10 % 431) % Eos (test code = 432) 0 % % Baso (test code = 437) 0 % # Neutros (test code = 11.78 See_Comment H [Aut omated message] 670) The system Eveo generated this result transmitted ref erence range: 1.78 - 5 .38 K/L. The refe rence range was not u sed to interpret this result as normal/abnor mal. # Lymphs (test code = 1.35 See_Comment [Auto mated message] 414) The system Eveo generated this result transmitted ref erence range: 1.32 - 3 .57 K/L. The refe rence range was not u sed to interpret this result as normal/abnor mal. # Monos (test code = 1.46 See_Comment H [Autom ated message] 415) The system Eveo generated this result transmitted ref erence range: 0.30 - 0 .82 K/L. The refe rence range was not u sed to interpret this result as normal/abnor mal. # Eos (test code = 416) 0.02 See_Comment L [Au tomated message] The system Eveo generated this result transmitted ref erence range: 0.04 - 0 .54 K/L. The refe rence range was not u sed to interpret this result as normal/abnor mal. # Baso (test code = 417) 0.02 See_Comment [A utomated message] The system Eveo generated this result transmitted ref erence range: 0.01 - 0 .08 K/L. The refe rence range was not u sed to interpret this result as normal/abnor mal. Immature 0 % 0-1 Granulocytes-Relative (test code = 2801) Lab Interpretation (test Abnormal code = 79387-9) [facility] W/PLT COUNT & AUTO [id number] 05:39:53 Test Item Value Reference Range Interpretation [...] 0-1 PERCENT (BEAKER) (test code = 2801) Salicylate [id number] 04:53:40 Test Item Value Reference Range Interpretation Comments Salicylate Lvl (test <3.0 15.0-30.0 L code = 4024-6) GUICHO (test code = GUICHO) Therapeutic Range: 15.0-30.0 mg/dLToxic: >30.0 mg/dL Lethal: >70.0 mg/dL Lab Interpretation (test Abnormal code = 33871-9) [facility] [id number] 04:53:40 Test Item Value Reference Range Interpretation Comments SALICYLATE LEVEL (BEAKER) (test code < mg/dL 15.0-30.0 L = 764) Therapeutic Range: 15.0-30.0 mg/dLToxic: >30.0 mg/dL Lethal: >70.0 mg/dL Hepatic function [id number] 03:46:03 Test Item Value Reference Range Interpretation Comments Protein, Total (test 5.7 See_Comment L Specime n slightly code = 0625-2) hemolyzed [Automated message] The system which generated this result transmitted reference range : 6.0 - 8.3 gm/dL . The reference range was not used to interpr et this result as normal/abnormal . Albumin (test code = 3.5 g/dL 3.5-5.0 Specime n slightly 56229-0) hemolyzed Total Bilirubin (test 0.5 mg/dL 0.2-1.2 Specim en slightly code = 1975-2) hemolyzed Bilirubin, Direct 0.3 mg/dL 0.1-0.5 Specimen s lightly (test code = 1967-7) hemolyz ed Alkaline Phosphatase 47 U/L 40-150 (test code = 6768-6) AST (test code = 17 U/L 5-34 Specimen sl ightly 1920-8) hemolyzed ALT (test code = 12 U/L 6-55 Specimen sl ightly 1742-6) hemolyzed GUICHO (test code = GUICHO) Chemist Physical ID - GITA Jillianerator ID - GITA M Lab Interpretation Abnormal (test code = 61190-2) [facility] [id number] 03:46:03 Test Item Value Reference Range Interpretation [...] Specimen slightly (test code = 347) hemolyzed Chemist Physical ID - GITA Jillianerator ID - GITA [id number] 03:30:59 Test Item Value Reference Range Interpretation Comments Phosphorus (test code 4.9 mg/dL 2.3-4.7 H Specim en = 2777-1) slightly hemolyzed GUICHO (test code = GUICHO) Chemist Physical ID - GITA M Lab Interpretation Abnormal (test code = 22065-4) [facility]2021-[facility]-04 03:30:59 Test Item Value Reference Range Interpretation Comments PHOSPHORUS (BEAKER) 4.9 mg/dL 2.3-4.7 H Specimen slightly (test code = 604) hemolyzed Chemist Physical ID - GITA MBASIC METABOLIC [id number] 03:30:59 Test Item Value Reference Range Interpretation [...] S NOT APPLICABLE FOR DIALYSIS PATIEN TS. Chemist Physical ID - GITA [id number] 03:30:58 Test Item Value Reference Range Interpretation Comments MAGNESIUM (BEAKER) 2.2 mg/dL 1.6-2.6 Specimen slightly (test code = 627) hemolyzed Chemist Physical ID - GITA MAcetaminophen [id number] 03:29:16 Test Item Value Reference Range Interpretation Comments Acetaminophen Level <5.7 10.0-30.0 L (test code = 3298-7) GUICHO (test code = GUICHO) Therapeutic Range: 10.0-30.0 g/mLToxic Levels: >200.0 g/mL Chemist Physical ID - GITA M Lab Interpretation (test Abnormal code = 98881-0) [facility]ET[facility]INOPHEN [id number] 03:29:16 Test Item Value Reference Range Interpretation Comments ACETAMINOPHEN LEVEL (BEAKER) (test < ug/mL 10.0-30.0 L code = 344) Therapeutic Range: 10.0-30.0 g/mLToxic Levels: >200.0 g/mLOperator ID - GITA [id number] 03:24:36 Test Item Value Reference Range Interpretation Comments PTT (test code = 22491-9) 27.9 See_Comment [ Automated message] The system Eveo generated this result transmitted ref erence range: 22.5 - 3 6.0 seconds. The re ference range was not u sed to interpret this result as normal/abnor mal. Lab Interpretation (test Normal code = 89759-0) [facility] 03:24:36 Test Item Value Reference Range Interpretation Comments PARTIAL THROMBOPLASTIN TIME 27.9 seconds 22.5-36.0 (BEAKER) (test code = 760) Prothrombin time/[id number] 03:23:58 Test Item Value Reference Interpretation Comments Range Protime (test code = 15.5 See_Comment H [Autom ated 5902-2) message] The system which generated this result transmitted reference range : 11.9 - 14.2 seconds. The reference range was not used to interpret this result as normal/abnormal . INR (test code = 1.25 See_Comment [Automated 6301-6) message] The system which generated this result transmitted reference range : <=5.90. The reference range was not used to interpret this result as normal/abnormal . GUICHO (test code = RECOMMENDED GUICHO) COUMADIN/WARFARIN INR THERAPY RANGESSTANDARD DOSE: 2.0 - 3.0 Includes: PROPHYLAXIS for venous thrombosis, systemic embolization; TREATMENT for venous thrombosis and/or pulmonary embolus.HIGH RISK: Target INR is 2.5-3.5 for patients with mechanical heart valves. Lab Interpretation Abnormal (test code = 07157-6) [facility] HospitalPROTHROM[facility]/[id number] 03:23:58 Test Item Value Reference Range Interpretation Comments PROTIME (BEAKER) 15.5 seconds 11.9-14.2 H (test code = 759) INR (BEAKER) (test 1.25 See_Comment [Automat ed message] code = 370) The system Eveo generated this result transmitted ref erence range: <=5.90. The reference range was not used to int erpret this result as normal/abnormal . RECOMMENDED COUMADIN/WARFARIN INR THERAPY RANGESSTANDARD DOSE: 2.0 - 3.0 Includes: PROPHYLAXIS for venous thrombosis, systemic embolization; TREATMENT for venous thrombosis and/or pulmonary embolus.HIGH RISK: Target INR is 2.5-3.5 for patients with mechanical heart valves.CALCIUM, [id number] 03:06:28 Test Item Value Reference Range Interpretation Comments CALCIUM IONIZED (BEAKER) (test 1.10 mmol/L 1.12-1.27 L code = 698) PH, BLOOD (BEAKER) (test code = 7.39 1810) Blood gas, [id number] 21:18:09 Test Item Value Reference Range Interpretation Comments pH, Xiang (test code = 7.42 7.32-7.42 2746-6) pCO2, Xiang (test code = 37 See_Comment L [Aut omated 755) message] The sy stem which generated this result transmitted reference range : 41 - 51 mm Hg. The reference range was not used to interpret this result as normal/abnormal . pO2, Xiang (test code = 47 See_Comment H [Auto mated 6705-2) message] The sy stem which generated this result transmitted reference range : 25 - 40 mm Hg. The reference range was not used to interpret this result as normal/abnormal . O2 Sat, Xiang (test code 83.9 % 40.0-70.0 H = 2711-0) HCO3, Xiang (test code = 24 mmol/L 21-29 91495-9) Base Excess, Xiang (test -0.8 mmol/L -2.0-3.0 code = 1927-3) Patient Temperature 36.8 (test code = 8310-5) FIO2 (test code = 1819) 21 Lab Interpretation Abnormal (test code = 85494-2) [facility] [id number] 21:18:09 Test Item Value Reference Range Interpretation [...] 1819) 21.0 RAD, CHEST, 1 VIEW, NON [id number] 20:03:00Reason for exam:- >overdoseShould this be performed at the bedside?->Yes [facility] 2000 Sex: MFINAL REPORT AP view of the chest dated 06/16/2021 CLINICAL INFORMATION: overdose Comment: Heart is normal in size. Pulmonary vasculature is unremarkable. Lungs are clear. No pulmonary infiltrate or pleural effusion is present. Impression: No active cardiopulmonary disease. Signed: Kailey De La Torre [facility] Verified Date/Time: 06/16/2021 20:03:47 Comprehensive metabolic [id number] 19:34:06 Test Item Value Reference Range Interpretation Comments Protein, Total (test 6.3 See_Comment Specime n slightly code = 2885-2) hemolyzed [Automated message] The system which generated this result transmit luz reference range : 6.0 - 8.3 gm/dL . The reference range was not u sed to interpret th is result as normal/abnormal . Albumin (test code = 3.8 g/dL 3.5-5.0 Specime n slightly 04628-6) hemolyzed Alkaline Phosphatase 52 U/L 40-150 (test code = 6768-6) Total Bilirubin (test 0.9 mg/dL 0.2-1.2 Specim en slightly code = 1974-2) hemolyzed Sodium (test code = 141 meq/L 269-571 8432-2) Potassium (test code 3.9 meq/L 3.5-5.1 Specime n slightly = 2823-3) hemolyzed Chloride (test code = 110 meq/L 98-107 H 2074-0) CO2 (test code = 18 meq/L 22-29 L 8-9) BUN (test code = 19 mg/dL 7-21 3094-0) Creatinine (test code 2.73 mg/dL 0.57-1.25 H Specim en slightly = 2160-0) hemolyzed Glucose (test code = 141 mg/dL 70-105 H 2345-7) Calcium (test code = 8.2 mg/dL 8.4-10.2 L 78839-4) AST (test code = 22 U/L 5-34 Specimen sl ightly 1920-8) hemolyzed ALT (test code = 15 U/L 6-55 Specimen sl ightly 1742-6) hemolyzed EGFR (test code = 30 mL/min/1.[place] [address]-1) NOT ACCURATE CREATININE CLEARANCE IN PREDICTING GLOMERULAR FILTRATION RATE . ESTIMATED GFR I S NOT APPLICABLE FOR DIALYSIS PATIEN TS. GUICHO (test code = GUICHO) Chemist Physical ID - BS Lab Interpretation Abnormal (test code = 53009-3) [facility] [id number] 19:34:06 Test Item Value Reference Range Interpretation [...] S NOT APPLICABLE FOR DIALYSIS PATIEN TS. Chemist Physical ID - [id number] 19:34:05 Test Item Value Reference Range Interpretation Comments MAGNESIUM (BEAKER) 1.8 mg/dL 1.6-2.6 Specimen slightly (test code = 627) hemolyzed Chemist Physical ID - [id number] 19:34:05 Test Item Value Reference Range Interpretation Comments PHOSPHORUS (BEAKER) 1.7 mg/dL 2.3-4.7 L Specimen slightly (test code = 604) hemolyzed Chemist Physical ID - BSManual [id number] 19:33:16 Test Item Value Reference Range Interpretation Comments % Neutros (test code = 90 % 2816) % Lymphs (test code = 3 % 2817) % Monos (test code = 7 % 2818) # Neutros (test code = 15.39 K/ul 1.78-5.38 H 2830) # Lymphs (test code = 0.51 K/ul 1.32-3.57 L 2831) # Monos (test code = 1.20 K/uL 0.30-0.82 H 2832) Total Counted (test code 100 = 1351) RBC Morphology (test code Normal = 762) WBC Morphology (test code Normal = 487) Platelet Morphology (test Normal code = 486) Artifact (test code = Present 3432) Platelet Conc (test code Adequate = 3438) GUICHO (test code = GUICHO) Chemist Physical ID - Charlotte Tolliver comments: Slide comments: Lab Interpretation (test Abnormal code = 50018-1) [facility](CELLAVISION MANUAL DIFF)2021-06-16 19:33:16 Test Item Value Reference [...] CONCENTRATION Adequate (CELLAVISION)(BEAKER) (test code = 3438) Chemist Physical ID - Charlotte Tolliver comments: Slide comments:CBC W/PLT COUNT & AUTO [id number] 19:03:21 Test Item Value Reference Range Interpretation [...] % 0-1 PERCENT (BEAKER) (test code = 9969)
--- NOTE | 2022-04-28 19:12 | ER ---
Nurse's Notes [facility] Name: Sander Nunez Age: 21 yrs Sex: Male : 2000 Arrival Date: 04/28/2022 Time: 19:00 Bed Waiting Private MD: Diagnosis: Unspecified otitis externa, left ear;Foreign body in left ear Presentation: 04/28 19:04 Chief complaint: Patient states: 3 days ago i was at my job and felt my ear do tw2 something weird. this morning i woke up deaf in my left ear. throughout the day the sound was getting me. it hurts so bad and is like a deep pain. i wasn't able to check for fever. 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 Coronavirus screen: At this time, the client does not indicate any symptoms associated with coronavirus-19. Ebola Screen: Patient denies travel to an Ebola-affected area in the 21 days before illness onset. Initial Sepsis Screen: Does the patient meet any 2 criteria? No. Patient's initial sepsis screen is negative. Does the patient have a suspected source of infection? No. Patient's initial sepsis screen is negative. Risk Assessment: Do you want to hurt yourself or someone else? Patient reports no desire to harm self or others. Note EVELYN Merrill in triage room at this time performing assessment. Onset of symptoms was April 28, 2022. 19:04 Method Of Arrival: Ambulatory tw2 19:04 Acuity: QUE 4 tw2 Triage Assessment: 19:04 General: Appears in no apparent distress. Behavior is calm, cooperative, appropriate tw2 for age. Pain: Complains of pain in right ear and left ear. EENT: Reports pain in left ear. Neuro: Level of Consciousness is awake, alert, obeys commands. Respiratory: Airway is patent Respiratory effort is even, unlabored, Respiratory pattern is regular, symmetrical. Historical: - Allergies: 19:07 No Known Allergies; tw2 - Home Meds: 19:07 None [Active]; tw2 - PMHx: 19:07 adhd; Seizure; TBI; tw2 - Immunization history:: Adult Immunizations. - Social history:: Smoking status: . Screenin: Abuse screen: Denies threats or abuse. Nutritional screening: No deficits noted. tw2 Tuberculosis screening: No symptoms or risk factors identified. Fall Risk None identified. Assessment: 19:16 Reassessment: Patient appears in no apparent distress at this time. No changes from tw2 previously documented assessment. Patient and/or family updated on plan of care and expected duration. Pain level reassessed. Patient is alert, oriented x 3, equal unlabored respirations, skin warm/dry/pink. Vital Signs: 19:04 BP 154 / 98; Pulse 97; Resp 17; Temp 99; Pulse Ox 100% on R/A; tw2 ED Course: 19:00 Patient arrived in ED. ja2 19:00 Josefa Bowman FNP-C [facility]. kb 19:00 Arturo Ortega MD is Attending Physician. kb 19:02 Arm band placed on. tw2 19:06 Triage completed. tw2 19:07 na. tw2 19:08 No provider procedures requiring assistance completed. Patient did not have IV access tw2 during this emergency room visit. Administered Medications: No medications were administered Medication: 19:07 VIS not applicable for this client. tw2 Outcome: 19:12 Discharge ordered by . kb 19:15 Discharged to home ambulatory. tw2 19:15 Condition: stable 19:15 Discharge instructions given to patient, Instructed on discharge instructions, follow up and referral plans. medication usage, Demonstrated understanding of instructions, follow-up care, medications, Prescriptions given X 1. 19:16 Patient left the ED. tw2 Signatures: Josefa Bowman FNP-C FNP-Ckb Wise, Tara, RN RN tw2 Kayla Wu 2
--- NOTE | 2022-04-28 19:12 | EDPHYS ---
Physician Documentation [facility] Name: Sander uNnez Age: 21 yrs Sex: Male : 2000 Arrival Date: 04/28/2022 Time: 19:00 Bed Waiting Private MD: ED Physician Arturo Ortega HPI: 04/28 23:32 This 21 yrs old Male presents to ER via Ambulatory with complaints of Ear Pain.kb 23:33 The patient presents with a fullness, hearing loss, pain, tenderness. The complaints kb affect the left ear. Onset: The symptoms/episode began/occurred yesterday. Modifying factors: The symptoms are alleviated by nothing, the symptoms are aggravated by nothing. Associated signs and symptoms: The patient has no apparent associated signs or symptoms. Severity of symptoms: At their worst the symptoms were moderate in the emergency department the symptoms are unchanged. The patient has not experienced similar symptoms in the past. The patient has not recently seen a physician. Pt reports fullness, decreased hearing and pain to left ear. States he may have gotten something in it at work. Historical: - Allergies: 19:07 No Known Allergies; tw2 - Home Meds: 19:07 None [Active]; tw2 - PMHx: 19:07 adhd; Seizure; TBI; tw2 - Immunization history:: Adult Immunizations. - Social history:: Smoking status: . ROS: 23:26 Constitutional: Negative for fever, chills, and weight loss. kb 23:26 ENT: Positive for ear pain. 23:26 All other systems are negative. Exam: 23:31 Constitutional: This is a well developed, well nourished patient who is awake, alert, kb and in no acute distress. Head/Face: Normocephalic, atraumatic. Cardiovascular: Regular rate and rhythm with a normal S1 and S2. No gallops, murmurs, or rubs. No pulse deficits. Respiratory: Respirations even and unlabored. No increased work of breathing. Talking in full sentences Skin: Warm, dry with normal turgor. Normal color. MS/ Extremity: Pulses equal, no cyanosis. Neurovascular intact. Full, normal range of motion. Neuro: Awake and alert, GCS 15, oriented to person, place, time, and situation. Moves all extremities. Normal gait. Psych: Awake, alert, with orientation to person, place and time. Behavior, mood, and affect are within normal limits. 23:31 ENT: Ear canal(s): foreign body, shiny, blue object (pt believes is metal), in the left external ear canal, swelling, that is moderate, of the left canal, TM's: are normal. Vital Signs: 19:04 BP 154 / 98; Pulse 97; Resp 17; Temp 99; Pulse Ox 100% on R/A; tw2 MDM: 19:10 Patient medically screened. kb 23:25 Data reviewed: vital signs, nurses notes. Data interpreted: Pulse oximetry: on room air kb is 100 %. Interpretation: normal. Counseling: I had a detailed discussion with the patient and/or guardian regarding: the historical points, exam findings, and any diagnostic results supporting the discharge/admit diagnosis, the need for outpatient follow up, an ENT specialist, to return to the emergency department if symptoms worsen or persist or if there are any questions or concerns that arise at home. 23:32 ED course: Pt educated to use ear drops as prescribed and then follow up with ENT for kb FB removal. Ear canal too swollen to access FB safely at this time. Administered Medications: No medications were administered Disposition: 04/29 00:09 Co-signature as Attending Physician, Arturo Ortega MD. rn Disposition Summary: 04/28/22 19:12 Discharge Ordered Location: Home kb Condition: Stable kb Diagnosis - Unspecified otitis externa, left ear kb - Foreign body in left ear kb Followup: kb - With: Emergency Department - When: As needed - Reason: Worsening of condition Followup: kb - With: Private Physician - When: 2 - 3 days - Reason: Recheck today's complaints, Continuance of care, Re-evaluation by your physician Discharge Instructions: - Otitis Externa, [id number] kb - Ear Drops, Adult, [id number] kb - Discharge Summary Sheet tw2 - Ear Foreign Body, [id number] kb Forms: - Work release form tw2 - Medication Reconciliation Form kb - Thank You Letter kb - Antibiotic Education kb - Prescription Opioid Use kb Prescriptions: - Ciprodex 0.3-0.1 % Otic Drops, Suspension - instill 4 drops by OTIC route every 12 hours for 7 days , for ears ONLY; 1 kb Container; Refills: 0, Product Selection Permitted Signatures: Josefa Bowman FNP-C [employer]ER-CkArturo Davila MD MD rn AbreuFanny RN RN tw2 Corrections: (The following items were deleted from the chart) 04/28 23:26 23:25 Counseling: I had a detailed discussion with the patient and/or guardian urmila regarding: the historical points, exam findings, and any diagnostic results supporting the discharge/admit diagnosis, the need for outpatient follow up, a family practitioner, to return to the emergency department if symptoms worsen or persist or if there are any questions or concerns that arise at home, kb
[2022-04-30 01:49] VITALS: BP 154/98; TEMP 99; O2SAT 100
== END 2022-04-28 19:16 | disposition home or self-care (01) ==
LOC: ER 18:52
DX: H60.92 Unspecified otitis externa, left ear (principal); T16.2XXA Foreign body in left ear, initial encounter
CPT/HCPCS: 99282

== ENCOUNTER 2023-03-19 23:07 | Inpatient (IN) | payer SELFPAY ==
--- OUTSIDE RECORDS SUMMARY | 2023-03-19 23:11 | XMS REPORT | Continuity of Care Document ---
:2000 Author Organization [facility] t Address [address] [place] [address] [place] [id number] Care Team Providers Name Role Phone Fuentes HERNANDEZ MD, Lux Washington Primary Care Physician [phone] HORACIO COATES Attending Clinician Unavailable Broderick Birmingham MD, David Garvin Attending Clinician [phone] José CASTILLO, Kelly Piper Attending Clinician [phone] Horacio Coates MD Attending Clinician DAVID CUELLAR Admitting Clinician Unavailable Payers Payer Name Policy Type Policy Number Effective Date Expiration Date [facility] [id number] 2018 CHOICE EXCHANGE 00:00:00 Problems Condition Condition Condition Status Onset Resolution Last Treating Co mments Source Name Details Category Date Date Treatment Clinician Date Intentiona Intentiona Disease Recurre 2020-[address] [facility] overdose l overdose nce 08-16 Janine kes of drug in of drug in 00:00: Me dical tablet tablet 00 Center form form Allergies, Adverse Reactions, Alerts Allergy Allergy Status Severity Reaction(s) Onset Inactive Treating Comm ents Source Name Type Date Date Clinician NO KNOWN Allergy Active [facility] Family History Family Member Diagnosis Comments Start Date Stop Date Source Natural [facility] Social History Social Habit Start Date Stop Date Quantity Comments Source History SDOH [facility] Medical [facility] Sexual [facility] SD[facility] Alcohol Std Drinks Medica l Center History SDOH [facility] Alcohol Binge Medical Joey ter Alcohol intake 2021-06-17 2021-06-[address] [facility] 00:00:00 00:00:00 non-drinker Medical Dianae r (finding) History SDOH 2021-06-17 2021-06-[address] [facility] Alcohol Frequency 00:00:00 00:00:00 Medical Center History of Social 2017-12-07 2017-12-[address] function 00:00:00 00:00:00 Hospital Tobacco use and 2017-12-07 2017-12-07 Smokeless Denominational exposure 00:00:00 00:00:00 tobacco non-user Hospital Sex Assigned At [address] [facility] kes 00:00:00 00:00:00 Medical Center Smoking Status Start Date Stop Date Source Never smoker [facility] Medications Ordered Filled Start Stop Current Ordering [...] cm Systolic blood 2021-06-19 07:45:00 129 mm[Hg] [facility] pressure [facility] Center Diastolic blood 2021-06-19 07:45:00 81 mm[Hg] [facility] S t [facility] Center Heart rate 2021-06-19 07:45:00 74 /min [facility] Body temperature 2021-06-19 07:45:00 37 Angie [facility] Respiratory rate 2021-06-19 07:45:00 17 /min [facility] Oxygen saturation in 2021-06-19 07:45:00 97 /min [facility] Arterial blood by Medical Ce nter Pulse oximetry Body weight 2021-06-17 05:00:00 66.1 kg [facility] BMI 2021-06-17 05:00:00 22.82 kg/m2 [facility] Body height 2021-06-17 01:00:00 170.2 cm [facility] Procedures Procedure Date / Time Performed Performing Clinician [facility] e CBC (HEMOGRAM ONLY) 2021-06-19 05:51:00 Kavita Liang [facility] BASIC METABOLIC PANEL (7) 2021-06-19 05:51:00 Kavita Liang [facility] MAGNESIUM 2021-06-19 05:51:00 Kavita Liang [facility] BASIC METABOLIC PANEL (7) 2021-06-18 05:12:00 Kelly Kumra [facility] MAGNESIUM 2021-06-18 05:12:00 José [facility] CBC (HEMOGRAM ONLY) 2021-06-18 05:12:00 José [facility] SARS-COV2/RT-PCR ([facility] & 2021-06-17 05:16:00 Vahid Calderon [facility] REF LABS) [facility] CBC W/PLT COUNT & AUTO 2021-06-17 05:04:00 Vahid Calderon [facility] DIFFERENTIAL [facility] CALCIUM, IONIZED 2021-06-17 05:04:00 Austin Salas [facility] CBC W/PLT COUNT & AUTO 2021-06-17 05:04:00 Vahid Calderon [facility] DIFFERENTIAL [facility] CALCIUM, IONIZED 2021-06-17 02:56:00 Austin Salas [facility] PHOSPHORUS 2021-06-17 02:56:00 Austin Salas [facility] MAGNESIUM 2021-06-17 02:56:00 Austin Salas [facility] HEPATIC FUNCTION PANEL 2021-06-17 02:56:00 Austin Salas [facility] ACETAMINOPHEN LEVEL 2021-06-17 02:56:00 Austin Salas [facility] PROTHROMBIN TIME/INR 2021-06-17 02:56:00 Austin Salas [facility] APTT 2021-06-17 02:56:00 Austin Salas [facility] BASIC METABOLIC PANEL (7) 2021-06-17 02:56:00 Austin Salas [facility] BLOOD GAS, VENOUS 2021-06-16 21:09:00 [facility] W/PLT COUNT & AUTO 2021-06-16 18:50:00 [facility] DIFFERENTIAL [facility] COMPREHENSIVE METABOLIC 2021-06-16 18:50:00 Yumiko [facility] PANEL [facility] MAGNESIUM 2021-06-16 18:50:00 Renaldopb [facility] PHOSPHORUS 2021-06-16 18:50:00 [facility] W/PLT COUNT & AUTO 2021-06-16 18:50:00 [facility] DIFFERENTIAL [facility] (CELLAVISION MANUAL DIFF) 2021-06-16 18:50:00 [facility] XR CHEST 1 VIEW PORTABLE 2021-06-16 18:38:00 [facility] EKG-SCANNED 2021-06-16 00:00:00 Provider, Julio Cesar [facility] Plan of Care Planned Activity Planned Date Details Comments Source Future Scheduled 2023-04-14 Influenza Vaccine (#1) [facility]00 [code = Influenza Vaccine Me dical Center (#1)] Future Scheduled 2023-03-18 COVID-19 VACCINE (#1) [facility] 08:04:22 [code = COVID-19 VACCINE Hos pital (#1)] Future Scheduled 2023-03-18 INFLUENZA VACCINE [code = Denominational Test 08:04:22 INFLUENZA VACCINE] Hospital Future Scheduled 2022-08-[address] [facility] Test 00:00:00 (12+) [code = DEPRESSION Med ical Center SCREENING (12+)] Future Scheduled 2022-04-15 INFLUENZA VACCINE [code = Denominational Test 18:04:35 INFLUENZA VACCINE] Hospital Future Scheduled 2022-04-15 HEPATITIS B VACCINES (1 [facility] Test 18:04:35 of 3 - 3-dose series) Hospit al [code = HEPATITIS B VACCINES (1 of 3 - 3-dose series)] Future Scheduled 2022-04-15 COVID-19 VACCINE (#1) [facility] 18:04:35 [code = COVID-19 VACCINE Hos pital (#1)] Future Scheduled 2022-04-14 INFLUENZA VACCINE (#1) [facility] 00:[facility]00 [code = INFLUENZA VACCINE Me dical Center (#1)] Future Scheduled 2021-08-[address] [facility] Test 00:00:00 (12+) [code = DEPRESSION Med ical Center SCREENING (12+)] Future Scheduled 2020 DTAP/TDAP/TD VACCINES ([address] [facility] Test 00:00:00 - Tdap) [code = Medical Cent er DTAP/TDAP/TD VACCINES (2 - Tdap)] Future Scheduled 2020 DTAP/TDAP/TD VACCINES ([address] [facility] Test 00:00:00 - Tdap) [code = Medical Cent er DTAP/TDAP/TD VACCINES (2 - Tdap)] Future Scheduled 2019-11-23 HEPATITIS C [facility]CREENING [facility] Test 00:00[facility]00 [code = HEPATITIS C Medical Center SCREENING] Future Scheduled 2019-11-23 HEPATITIS C [facility]CREENING [facility] Test 00:00:00 [code = HEPATITIS C Medical Center SCREENING] Future Scheduled [address] Human immunodeficiency [facility] Test 00:00:00 virus screening Medical Cent er (procedure) [code = 662599544] Future Scheduled [address] [facility] Test 00:00:00 Counseling and Screening Med ical Center (12+) [code = Tobacco Cessation Counseling and Screening (12+)] Future Scheduled 2002-05-24 COVID-19 VACCINE (#1) [facility] Test 00:00[facility]00 [code = COVID-19 VACCINE Med ical Center (#1)] Future Scheduled 2002-05-24 COVID-19 VACCINE (#1) [facility] Test 00:00:00 [code = COVID-19 VACCINE [facility] (#1)] Encounters Start End Encounter Admission Attending Care Care Encounter Source Date/Time Date/Time Type Type Clinicians Facility Department ID 2021-06-16 2021-06-19 Inpatient ER [facility] Cardiology 2 [id number] [facility] 17:57:00 10:58:00 , [facility] 2021-06-16 2021-06-19 Hospital ER David Cuellar [facility] [id number] [facility] 17:57:00 10:58:00 Encounter Isis Kumarmildred Piper [facility] 2021-06-17 2021-06-17 Travel [facility] [id number] [facility] 00:00:00 00:00:00 [facility] Results Test Description Test Time Test Comments Results Result Comments Source Basic Metabolic Panel 2021-06-19 06:52:09 Test Item Value Reference Range Interpretation Comme nts Sodium (test code = 138 meq/L 961-648 3033-2) Potassium (test code = 4.1 meq/L 3.5-5.1 [...] (test code = 8.3 mg/dL 8.4-10.2 L 69107-4) EGFR (test code = 68380-0) 138 mL/min/1.73 sq m ESTIMATED GFR IS NOT ACCURATE CREATININE LIANA KARNE IN PREDICTING GLOMERULAR FILT RATION RATE. ESTIMATED GFR IS NOT APPLICAB LE FOR DIALYSIS PATIEN TS. LINDO (test code = GUICHO) [employer] ID - EZ L Lab Interpretation (test Abnormal code = 20173-7) [facility] 06:52:09 Test Item Value Reference Range Interpretation Comments Magnesium (test code = 1.7 mg/dL 1.6-2.6 Speci men 30816-9) slightly hemolyzed GUICHO (test code = GUICHO) [employer] ID - EZ L Lab Interpretation Normal (test code = 57779-5) [facility]2021-[facility]-06 06:52:09 Test Item Value Reference Range Interpretation Comments MAGNESIUM (BEAKER) 1.7 mg/dL 1.6-2.6 Specimen slightly (test code = 627) hemolyzed [employer] ID - EZ LBASIC METABOLIC [id number] 06:52:09 Test Item Value Reference Range Interpretation [...] S NOT APPLICABLE FOR DIALYSIS PATIEN TS. [employer] ID - PIAYA LCBC (Hemogram only)2021-06-19 06:16:29 Test Item Value Reference Range Interpretation Comments WBC (test code = 6690-2) 4.5 See_Comment [A utomated message] The system [employer] generated this result transmitted ref erence range: 3.5 - 10 .5 K/L. The refe rence range was not u sed to interpret this result as normal/abnor mal. RBC (test code = 789-8) 4.24 See_Comment L [Au tomated message] The system [employer] generated this result transmitted ref erence range: 4.63 - 6 .08 M/L. The refe rence range was not u sed to interpret this result as normal/abnor mal. MCHC (test code = 786-4) 35.2 See_Comment L [A utomated message] The system [employer] generated this result transmitted ref erence range: [...] See_Comment [Aut omated message] 777-3) The system [employer] generated this result transmitted ref erence range: 150 - 45 0 K/CU MM. The referen ce range was not u sed to interpret this result as normal/abnor mal. MPV (test code = 10.1 fL 9.4-12.4 70542-5) nRBC (test code = 413) 0 See_Comment [Aut omated message] The system [employer] generated this result transmitted ref erence range: 0 - 0 /1 00 WBC. The refere nce range was not u sed to interpret this result as normal/abnor mal. Lab Interpretation (test Abnormal code = 11152-9) [facility] (HEMOGRAM ONLY)2021-06-19 06:16:29 Test Item Value Reference [...] WBC 0-0 (BEAKER) (test code = 413) [id number] 06:19:22 Test Item Value Reference Range Interpretation Comments MAGNESIUM (BEAKER) 1.7 mg/dL 1.6-2.6 Specimen slightly (test code = 627) hemolyzed [employer] ID - PIAYA LBASIC METABOLIC [id number] 06:19:22 Test Item Value Reference Range Interpretation [...] S NOT APPLICABLE FOR DIALYSIS PATIEN TS. [employer] ID - PIAYA LCBC (HEMOGRAM ONLY)2021-06-18 05:30:48 [...] Not Detected, (test code = Negative, See 33200-3) external report for linked test SARS-COV-2 [facility] PERFORMING LAB (test code = 96350-1) GUICHO (test code = Negative result for [...] of the Act. Fact Sheet for Healthcare Providers:https://www.[employer]/sites/default/f yee/product/documents/F act_Sheet_HC_Providers_L hzd_OSPW-MxW-1.pdf Fact Sheet for Healthcare Patients:https://www.[employer]/sites/default/fi les/product/documents/Fa ct_Sheet_Patients_Lyra_S ARS-CoV-2.pdf Performing Laboratory:[place] [address], [place] [address] [place], [place] [address]ARS-COV2/RT-PCR ([facility] & REF LABS)2021-06-17 11:38:36 Test Item Value Reference Range Interpretation Comments SARS-COV2/RT-PCR (test Negative Not Detected, Negative, code = 2851310) See external report for linked test SARS-COV-2 PERFORMING LAB [facility] J[facility] (test code = 3466666) Negative result for this test determines that [...] 564(g) of the Act.Fact Sheet for Healthcare Pro viders:https://www.[employer]/sites/default/files/product/documents/Fact_Sheet_H G_Bvhufxumv_Dnvk_OZKG-HbQ-1.pdfFact Sheet for Healthcare Patients:https://www.[employer]/sites/default/files/product/docum ents/Vnke_Apqfn_Pxlgnzgm_Edit_SZAN-FgK-8.pdfPerforming Laboratory:[facility], [place] [address]Cwejmyx, Ionized 2021-06-17 05:47:42 Test Item Value Reference Range Interpretation Comments Calcium, Ion (test code = 1993-) 1.11 mmol/L 1.12-1.27 L pH, Blood (test code = 28896-4) 7.40 Lab Interpretation (test code = Abnormal 74912-4) [facility] Center[facility], [id number] 05:47:42 Test Item Value Reference Range Interpretation Comments CALCIUM IONIZED (BEAKER) (test 1.11 mmol/L 1.12-1.27 L code = 698) PH, BLOOD (BEAKER) (test code = 7.40 1810) CBC with platelet count + automated [id number] 05:39:53 Test Item Value Reference Range Interpretation Comments WBC (test code = 6690-2) 14.7 See_Comment H [A utomated message] The system [employer] generated this result transmitted ref erence range: 3.5 - 10 .5 K/L. The refe rence range was not u sed to interpret this result as normal/abnor mal. RBC (test code = 789-8) 4.11 See_Comment L [Au tomated message] The system [employer] generated this result transmitted ref erence range: 4.63 - 6 .08 M/L. The refe rence range was not u sed to interpret this result as normal/abnor mal. MCHC (test code = 786-4) 35.4 See_Comment L [A utomated message] The system [employer] generated this result transmitted ref erence range: [...] See_Comment [Aut omated message] 777-3) The system [employer] generated this result transmitted ref erence range: 150 - 45 0 K/CU MM. The referen ce range was not u sed to interpret this result as normal/abnor mal. MPV (test code = 10.0 fL 9.4-12.4 41827-9) nRBC (test code = 413) 0 See_Comment [Aut omated message] The system [employer] generated this result transmitted ref erence range: [...] H [Aut omated message] 670) The system [employer] generated this result transmitted ref erence range: 1.78 - 5 .38 K/L. The refe rence range was not u sed to interpret this result as normal/abnor mal. # Lymphs (test code = 1.35 See_Comment [Auto mated message] 414) The system [employer] generated this result transmitted ref erence range: 1.32 - 3 .57 K/L. The refe rence range was not u sed to interpret this result as normal/abnor mal. # Monos (test code = 1.46 See_Comment H [Autom ated message] 415) The system [employer] generated this result transmitted ref erence range: 0.30 - 0 .82 K/L. The refe rence range was not u sed to interpret this result as normal/abnor mal. # Eos (test code = 416) 0.02 See_Comment L [Au tomated message] The system [employer] generated this result transmitted ref erence range: 0.04 - 0 .54 K/L. The refe rence range was not u sed to interpret this result as normal/abnor mal. # Baso (test code = 417) 0.02 See_Comment [A utomated message] The system [employer] generated this result transmitted ref erence range: 0.01 - 0 .08 K/L. The refe rence range was not u sed to interpret this result as normal/abnor mal. Immature 0 % 0-1 Granulocytes-Relative (test code = 2801) Lab Interpretation (test Abnormal code = 26030-0) [facility] W/PLT COUNT & AUTO [id number] 05:39:53 Test Item Value Reference Range Interpretation [...] PERCENT (BEAKER) (test code = 2801) Salicylate [id number] 04:53:40 Test Item Value Reference Range Interpretation Comments Salicylate Lvl (test <3.0 15.0-30.0 L code = 4024-6) GUICHO (test code = GUICHO) Therapeutic Range: 15.0-30.0 mg/dLToxic: >30.0 mg/dL Lethal: >70.0 mg/dL Lab Interpretation (test Abnormal code = 22489-6) [facility] [id number] 04:53:40 Test Item Value Reference Range Interpretation Comments SALICYLATE LEVEL (BEAKER) (test code < mg/dL 15.0-30.0 L = 764) Therapeutic Range: 15.0-30.0 mg/dLToxic: >30.0 mg/dL Lethal: >70.0 mg/dL Hepatic function [id number] 03:46:03 Test Item Value Reference Range Interpretation Comments Protein, Total (test 5.7 See_Comment L Specime n slightly code = 2885-2) hemolyzed [Automated message] The system which generated this result transmitted reference range : 6.0 - 8.3 gm/dL . The reference range was not used to interpr et this result as normal/abnormal . Albumin (test code = 3.5 g/dL 3.5-5.0 Specime n slightly 64614-2) hemolyzed Total Bilirubin (test 0.5 mg/dL 0.2-1.2 Specim en slightly code = 1975-2) hemolyzed Bilirubin, Direct 0.3 mg/dL 0.1-0.5 Specimen s lightly (test code = 1968-7) hemolyz ed Alkaline Phosphatase 47 U/L 40-150 (test code = 6768-6) AST (test code = 17 U/L 5-34 Specimen sl ightly 1920-8) hemolyzed ALT (test code = 12 U/L 6-55 Specimen sl ightly 1742-6) hemolyzed GUICHO (test code = GUICHO) [employer] ID - GITA MOperator ID - GITA M Lab Interpretation Abnormal (test code = 64323-4) [facility] Center[facility]ATIC FUNCTION [id number] 03:46:03 Test Item Value Reference Range Interpretation [...] Specimen slightly (test code = 347) hemolyzed [employer] ID - GITA MOperator ID - GITA [id number] 03:30:59 Test Item Value Reference Range Interpretation Comments Phosphorus (test code 4.9 mg/dL 2.3-4.7 H Specim en = 2777-1) slightly hemolyzed GUICHO (test code = GUICHO) [employer] ID - GITA M Lab Interpretation Abnormal (test code = 89277-9) [facility]OSPHORUS2021-11-04 03:30:59 Test Item Value Reference Range Interpretation Comments PHOSPHORUS (BEAKER) 4.9 mg/dL 2.3-4.7 H Specimen slightly (test code = 604) hemolyzed [employer] ID - GITA MBASIC METABOLIC [id number] 03:30:59 Test Item Value Reference Range Interpretation [...] S NOT APPLICABLE FOR DIALYSIS PATIEN TS. [employer] ID - GITA [id number] 03:30:58 Test Item Value Reference Range Interpretation Comments MAGNESIUM (BEAKER) 2.2 mg/dL 1.6-2.6 Specimen slightly (test code = 627) hemolyzed [employer] ID - GITA MAcetaminophen [id number] 03:29:16 Test Item Value Reference Range Interpretation Comments Acetaminophen Level <5.7 10.0-30.0 L (test code = 3298-7) GUICHO (test code = GUICHO) Therapeutic Range: 10.0-30.0 g/mLToxic Levels: >200.0 g/mL [employer] ID - GITA M Lab Interpretation (test Abnormal code = 80317-5) [facility] CenterACETAMINOPHEN [id number] 03:29:16 Test Item Value Reference Range Interpretation Comments ACETAMINOPHEN LEVEL (BEAKER) (test < ug/mL 10.0-30.0 L code = 344) Therapeutic Range: 10.0-30.0 g/mLToxic Levels: >200.0 g/mLOperator ID - GITA [id number] 03:24:36 Test Item Value Reference Range Interpretation Comments PTT (test code = 07734-2) 27.9 See_Comment [ Automated message] The system [employer] generated this result transmitted ref erence range: 22.5 - 3 6.0 seconds. The re ference range was not u sed to interpret this result as normal/abnor mal. Lab Interpretation (test Normal code = 48901-6) [facility] CenterAPTT2021-[facility] 03:24:36 Test Item Value Reference Range Interpretation Comments PARTIAL THROMBOPLASTIN TIME 27.9 seconds 22.5-36.0 (BEAKER) (test code = 760) Prothrombin time/[id number] 03:23:58 Test Item Value Reference Interpretation Comments [...] valves. Lab Interpretation Abnormal (test code = 77844-5) [facility] CenterPROTHROMBIN TIME/[id number] 03:23:58 Test Item Value Reference Range Interpretation Comments PROTIME (BEAKER) 15.5 seconds 11.9-14.2 H (test code = 759) INR (BEAKER) (test 1.25 See_Comment [Automat ed message] code = 370) The system [employer] generated this result transmitted ref erence range: <=5.90. The reference range was not used to int erpret this result as normal/abnormal . RECOMMENDED COUMADIN/WARFARIN INR THERAPY RANGESSTANDARD DOSE: 2.0 - 3.0 Includes: PROPHYLAXIS for venous thrombosis, systemic embolization; TREATMENT for venous thrombosis and/or pulmonary embolus.HIGH RISK: Target INR is 2.5-3.5 for patients with mechanical heart valves.CALCIUM, [id number] 03:06:28 Test Item Value Reference Range Interpretation Comments CALCIUM IONIZED (BEAKER) (test 1.10 mmol/L 1.12-1.27 L code = 698) PH, BLOOD (BEAKER) (test code = 7.39 1810) Blood gas, [id number] 21:18:09 Test Item Value Reference Range Interpretation [...] code = 47 See_Comment H [Auto mated 7505-2) message] The sy stem which generated this result transmitted reference range : 25 - 40 mm Hg. The reference range was not used to interpret this result as normal/abnormal . O2 Sat, Xiang (test code 83.9 % 40.0-70.0 H = 2711-0) HCO3, Xiang (test code = 24 mmol/L 21-29 08108-8) Base Excess, Xiang (test -0.8 mmol/L -2.0-3.0 code = 1927-3) Patient Temperature 36.8 (test code = 8310-5) FIO2 (test code = 1819) 21 Lab Interpretation Abnormal (test code = 90055-5) [facility] CenterBLOOD GAS, [id number] 21:18:09 Test Item Value Reference Range Interpretation Comments PH VENOUS (BEAKER) (test code = 7.42 7.32-7.42 701) PCO2 VENOUS (BEAKER) (test code = 37 mm Hg 41-51 L 755) PO2 VENOUS (BEAKER) (test code = 47 mm Hg 25-40 H 702) O2 SATURATION VENOUS (BEAKER) 83.9 % 40.0-70.0 H (test code = 703) HCO3 VENOUS (BEAKER) (test code = 24 mmol/L -29 705) BASE EXCESS VENOUS (BEAKER) (test -0.8 mmol/L -2.0-3.0 code = 704) PATIENT TEMPERATURE (BEAKER) 36.8 (test code = 1818) FIO2 (BEAKER) (test code = 1819) 21.0 RAD, CHEST, 1 VIEW, NON [id number] 20:03:00Reason for exam:- >overdoseShould this be performed at the bedside?->Yes [facility] 2000 Sex: MFINAL REPORT AP view of the chest dated 06/16/2021 CLINICAL INFORMATION: overdose Comment: Heart is normal in size. Pulmonary vasculature is unremarkable. Lungs are clear. No pulmonary infiltrate or pleural effusion is present. Impression: No active cardiopulmonary disease. Signed: Kailey De La Torre MDReport Verified Date/Time: 06/16/2021 20:03:47 Comprehensive metabolic [id number] 19:34:06 Test Item Value Reference Range Interpretation Comments Protein, Total (test 6.3 See_Comment Specime n slightly code = 2885-2) hemolyzed [Automated message] The system which generated this result transmit luz reference range : 6.0 - 8.3 gm/dL . The reference range was not u sed to interpret th is result as normal/abnormal . Albumin (test code = 3.8 g/dL 3.5-5.0 Specime n slightly 21291-2) hemolyzed Alkaline Phosphatase 52 U/L 40-150 (test code = 6768-6) Total Bilirubin (test 0.9 mg/dL 0.2-1.2 Specim en slightly code = 1974-2) hemolyzed Sodium (test code = 141 meq/L 972-817 1411-2) Potassium (test code 3.9 meq/L 3.5-5.1 Specime n slightly = 2823-3) hemolyzed Chloride (test code = 110 meq/L 98-107 H 2074-0) CO2 (test code = 18 meq/L 22-29 L 2027-) BUN (test code = 19 mg/dL 7-21 3094-0) Creatinine (test code 2.73 mg/dL 0.57-1.25 H Specim en slightly = 216-0) hemolyzed Glucose (test code = 141 mg/dL 70-105 H 2345-7) Calcium (test code = 8.2 mg/dL 8.4-10.2 L 92779-3) AST (test code = 22 U/L 5-34 Specimen sl ightly 1920-8) hemolyzed ALT (test code = 15 U/L 6-55 Specimen sl ightly 1742-6) hemolyzed EGFR (test code = 30 mL/min/1.73 [place] [address]-1) NOT ACCURATE CREATININE CLEARANCE IN PREDICTING GLOMERULAR FILTRATION RATE . ESTIMATED GFR I S NOT APPLICABLE FOR DIALYSIS PATIEN TS. GUICHO (test code = GUICHO) [employer] ID - BS Lab Interpretation Abnormal (test code = 35737-9) [facility] [id number] 19:34:06 Test Item Value Reference Range Interpretation [...] S NOT APPLICABLE FOR DIALYSIS PATIEN TS. [employer] ID - [id number] 19:34:05 Test Item Value Reference Range Interpretation Comments MAGNESIUM (BEAKER) 1.8 mg/dL 1.6-2.6 Specimen slightly (test code = 627) hemolyzed [employer] ID - [id number] 19:34:05 Test Item Value Reference Range Interpretation Comments PHOSPHORUS (BEAKER) 1.7 mg/dL 2.3-4.7 L Specimen slightly (test code = 604) hemolyzed [employer] ID - BSManual [id number] 19:33:16 Test Item Value Reference Range Interpretation [...] = 3438) GUICHO (test code = GUICHO) [employer] ID - Charlotte Tolliver comments: Slide comments: Lab Interpretation (test Abnormal code = 36493-0) [facility](CELLAVISION MANUAL DIFF)2021-06-16 19:33:16 Test Item Value Reference [...] CONCENTRATION Adequate (CELLAVISION)(BEAKER) (test code = 3438) [employer] ID - Charlotte Tolliver comments: Slide comments:CBC W/PLT COUNT & AUTO [id number] 19:03:21 Test Item Value Reference Range Interpretation [...] % 0-1 PERCENT (BEAKER) (test code = 5082)
[2023-03-19 23:48] LABS: Absolute Lymphocytes (CBC) 2.3 K/uL (0.7-4.9); Hematocrit 44.9 % (39.6-49.0); Lymphocytes % 34.2 % (15.3-44.8); MCV 90.3 fL (80-100); MPV 7.3 fL (7.6-11.3); Platelets 234 thou/uL (152-406); RBC Red Blood Cell Count 4.98 M/uL (4.33-5.43)
[2023-03-19] MEDS ORDERED: NA CHLORIDE 0.9% 2,000 ML ONE (23:52)
[2023-03-19 23:54] LABS: Protime INR 1.08
[2023-03-20] MEDS ORDERED: SODIUM BICARB 50 MEQ/50ML VIAL ONE (00:09)
[2023-03-20] MEDS ORDERED: CYCLOBENZAPRINE 10 MG TAB ONE (00:09)
[2023-03-20 00:13] LABS: ALT/SGPT 284 U/L (16-61); AST/SGOT 1460 U/L (15-37); Albumin 3.7 g/dL (3.4-5.0); Alkaline Phosphatase 95 U/L (45-117); BUN Blood Urea Nitrogen 14 mg/dL (7-18); Bicarbonate 25 mEq/L (21-32); Bilirubin Direct 0.2 mg/dL (0-0.2); Bilirubin Indirect, Calculated 0.5 mg/dL (0.2-0.8); Bilirubin Total 0.7 mg/dL (0.2-1.0); Glomerular Filtration Rate 126 ml/min (=/>90); Glucose Level 102 mg/dL (74-106); Potassium 3.3 mEq/L (3.5-5.1); Sodium Level 138 mEq/L (136-145)
[2023-03-20 00:33] LABS: Creatine Phosphokinase > 13020 U/L (39-308)
--- NOTE | 2023-03-20 01:21 | EDPHYS ---
Physician Documentation [facility] Name: Sander Nunez Age: 22 yrs Sex: Male : 2000 Arrival Date: 03/19/2023 Time: 23:07 Bed 2 Private MD: Lux Dill ED Physician Vitaliy Trujillo HPI: 03/19 23:26 This 22 yrs old Male presents to ER via Unassigned with complaints of sp4 Urinating blood. 23:26 22-year-old male presents with complaint of urinating blood.. sp4 03/20 01:15 Patient states that yesterday he did extensive series of push-ups also went to the sp4 republican as well and had some alcohol. Since then patient had diffuse muscle aches and reported that he is urinating brown urine. Patient has significant muscle aches for which she took Tylenol at home . No prior history of similar problems. Historical: - Allergies: 03/19 23:52 No Known Allergies; jb4 - Home Meds: 23:52 None [Active]; jb4 - PMHx: 23:52 adhd; Seizure; TBI; jb4 - PSHx: 23:52 None; jb4 - Immunization history:: Adult Immunizations up to date. - Social history:: Smoking status: Patient denies any tobacco usage or history of. - Family history:: not pertinent. ROS: 03/20 01:15 Constitutional: Negative for fever, chills, and weight loss, : Negative for injury, sp4 bleeding, discharge, and swelling, positive brown urine discoloration MS/Extremity: Negative for injury and deformity, positive diffuse body ache All other systems are negative. Exam: 01:15 Constitutional: This is a well developed, well nourished patient who is awake, alert, sp4 and in no acute distress. Head/Face: Normocephalic, atraumatic. Eyes: Pupils equal round and reactive to light, extra-ocular motions intact. Lids and lashes normal. Conjunctiva and sclera are not injected. Cornea within normal limits. Periorbital areas with no swelling, redness, or edema. ENT: Nares patent. No nasal discharge, no septal abnormalities noted. Tympanic membranes are normal and external auditory canals are clear. Oropharynx with no redness, swelling, or masses, exudates, or evidence of obstruction, uvula midline. Mucous membranes moist. Neck: Trachea midline, no thyromegaly or masses palpated, and no cervical lymphadenopathy. Supple, full range of motion without nuchal rigidity, or vertebral point tenderness. Chest/axilla: Normal chest wall appearance and motion. Nontender with no deformity. No lesions are appreciated. Cardiovascular: Regular rate and rhythm with a normal S1 and S2. No gallops, murmurs, or rubs. Normal PMI, no JVD. No pulse deficits. Respiratory: Lungs have equal breath sounds bilaterally, clear to auscultation and percussion. No rales, rhonchi or wheezes noted. No increased work of breathing, no retractions or nasal flaring. Abdomen/GI: Soft, non-tender, with normal bowel sounds. No distension or tympany. No guarding or rebound. No evidence of tenderness throughout. Back: No spinal tenderness. No costovertebral tenderness. Skin: Warm, dry with normal turgor. Normal color with no rashes, no lesions, and no evidence of cellulitis. MS/ Extremity: Pulses equal, no cyanosis. Neurovascular intact. Full, normal range of motion. Neuro: Awake and alert, GCS 15, oriented to person, place, time, and situation. Cranial nerves II-XII grossly intact. Motor strength 5/5 in all extremities. Sensory grossly intact. Psych: Awake, alert, with orientation to person, place and time. Behavior, mood, and affect are within normal limits Vital Signs: 03/19 23:20 BP 157 / 105; Pulse 77; Resp 19; Temp 98.9(O); Pulse Ox 98% on R/A; Weight 70.31 kg 4 (R); Height 5 ft. 8 in. (R); Pain 8/; 03/20 01:00 BP 143 / 90; Pulse 62; Resp 16; Pulse Ox 100% on R/A; jb4 02:00 BP 150 / 103; Pulse 77; Resp 16; Pulse Ox 99% on R/A; jb4 03/19 23:20 Body Mass Index 23.57 (70.31 kg, 172.72 cm) 4 03/19 23:20 Pain Scale: Adult [facility] MDM: 03/19 23:27 Patient medically screened. sp4 03/20 01:15 Differential Diagnosis altered mental status, sepsis, flu. Data reviewed: vital signs, sp4 nurses notes, old medical records, lab test result(s). Consideration of Admission/Observation Patient was admitted/placed on observation. Escalation of care including admission/observation considered. Management of patient was discussed with the following: Hospitalist: Discussed with admitting team. ED course: Patient has signs of acute rhabdomyolysis highly elevated CPK, elevated AST 1460 and ALT 284. Patient warrants admission for IV hydration repeat labs in the morning. . 03/19 23:27 Order name: Urinalysis W/Microscopic [facility] 03/19 23:27 Order name: Basic Metabolic Panel; Complete Time: 01:11 4 03/19 23:27 Order name: CBC with Diff; Complete Time: 00: [facility] 03/19 23:27 Order name: PT-INR; Complete Time: 00:02 4 03/19 23:28 Order name: CK; Complete Time: 01:11 sp4 03/19 23:28 Order name: LFT's; Complete Time: 01: 4 03/19 23:27 Order name: Labs collected and sent; Complete Time: 23:50 sp4 Administered Medications: 03/19 23:50 Drug: NS 0.9% IV 1000 ml Route: IV; Rate: 1 bolus; Site: right antecubital; jb4 23:50 Drug: NS 0.9% IV 1000 ml Route: IV; Rate: 1 bolus; Site: right antecubital; jb4 03/20 00:07 Drug: Cyclobenzaprine PO 10 mg Route: PO; jb4 00:07 Drug: Sodium Bicarbonate IVP 1 amp Route: IVP; Site: right antecubital; jb4 00:08 Drug: Sodium Bicarbonate IVP 1 amp Route: IVP; Site: right antecubital; jb4 02:19 Drug: NS 0.9% IV 1000 ml Route: IV; Rate: 150 ml/hr; Site: right antecubital; jb4 02:19 Drug: NS 0.9% IV 1000 ml Route: IV; Rate: 1000 ml; Site: right antecubital; jb4 Disposition Summary: 03/20/23 01:21 Hospitalization Ordered Hospitalization Status: Inpatient Admission sp4 Provider: Jerome Dee sp4 [facility] Condition: Stable sp4 Problem: new sp4 Symptoms: have improved sp4 Bed/Room Type: Standard sp4 Room Assignment: 219(03/20/23 01:53) cg Diagnosis - Rhabdomyolysis sp4 - Acute transaminitis, elevated LFTs, acute rhabdomyolysis elevated CPK sp4 Forms: - Medication Reconciliation Form sp4 - SBAR form sp4 Signatures: Dispatcher [employer] EDMacho Joseph, EVELYN-C ACQUISITIONS ANALYST-Cla1 Tejal Mosher RN RN Rosendo Weiss RN RN jb4 Vitaliy Trujillo MD MD sp4 Corrections: (The following items were deleted from the chart) 01:53 01:21 sp4 cg
--- NOTE | 2023-03-20 01:21 | ER ---
Nurse's Notes [facility] Name: Sander Nunez Age: 22 yrs Sex: Male : 2000 Arrival Date: 03/19/2023 Time: 23:07 Bed 2 Private MD: Lux Dill Diagnosis: Rhabdomyolysis;Acute transaminitis, elevated LFTs, acute rhabdomyolysis elevated CPK Presentation: 03/19 23:20 Chief complaint: Patient states: Yesterday I was working out and think I over did it. I jb4 also went swimming all day and had some alcohol and when I woke up my urine was dark brown and I have pain all over. 23:20 Coronavirus screen: At this time, the client does not indicate any symptoms associated jb4 with coronavirus-19. Ebola Screen: No symptoms or risks identified at this time. Initial Sepsis Screen: Does the patient meet any 2 criteria? No. Patient's initial sepsis screen is negative. Does the patient have a suspected source of infection? No. Patient's initial sepsis screen is negative. Risk Assessment: Do you want to hurt yourself or someone else? Patient reports no desire to harm self or others. Onset of symptoms was March 19, 2023. Transition of care: patient was not received from another setting of care. 23:20 Method Of Arrival: Ambulatory jb4 23:20 Acuity: QUE 3 jb4 Historical: - Allergies: 23:52 No Known Allergies; jb4 - Home Meds: 23:52 None [Active]; jb4 - PMHx: 23:52 adhd; Seizure; TBI; jb4 - PSHx: 23:52 None; jb4 - Immunization history:: Adult Immunizations up to date. - Social history:: Smoking status: Patient denies any tobacco usage or history of. - Family history:: not pertinent. Screenin:53 [facility] ED Fall Risk Assessment (Adult) History of falling in the last 3 months, jb4 including since admission No falls in past 3 months (0 pts) Confusion or Disorientation No (0 pts). Abuse screen: Denies threats or abuse. Nutritional screening: No deficits noted. Tuberculosis screening: No symptoms or risk factors identified. Assessment: 23:53 General: Appears in no apparent distress. uncomfortable, Behavior is calm, cooperative, jb4 appropriate for age. Pain: Complains of pain in Generalized body aches Pain does not radiate. Pain currently is 8 out of 10 on a pain scale. Neuro: Level of Consciousness is awake, alert, obeys commands, Oriented to person, place, time, situation. Cardiovascular: Patient's skin is warm and dry. Respiratory: Airway is patent Respiratory effort is even, unlabored, Respiratory pattern is regular, symmetrical. GI: No signs and/or symptoms were reported involving the gastrointestinal system. : No signs and/or symptoms were reported regarding the genitourinary system. EENT: No signs and/or symptoms were reported regarding the EENT system. Derm: Skin is intact, Skin is pink, warm \T\ dry. Musculoskeletal: Circulation, motion, and sensation intact. Range of motion: intact in all extremities. 03/20 01:00 Reassessment: Patient appears in no apparent distress at this time. Patient and/or jb4 family updated on plan of care and expected duration. Pain level reassessed. Patient is alert, oriented x 3, equal unlabored respirations, skin warm/dry/pink. 02:21 Reassessment: Patient appears in no apparent distress at this time. Patient and/or jb4 family updated on plan of care and expected duration. Pain level reassessed. Patient is alert, oriented x 3, equal unlabored respirations, skin warm/dry/pink. Vital Signs: 03/19 23:20 BP 157 / 105; Pulse 77; Resp 19; Temp 98.9(O); Pulse Ox 98% on R/A; Weight 70.31 kg jb4 (R); Height 5 ft. 8 in. (R); Pain 8/10; 03/20 01:00 BP 143 / 90; Pulse 62; Resp 16; Pulse Ox 100% on R/A; jb4 02:00 BP 150 / 103; Pulse 77; Resp 16; Pulse Ox 99% on R/A; jb4 03/19 23:20 Body Mass Index 23.57 (70.31 kg, 172.72 cm) 4 03/19 23:20 Pain Scale: Adult jb4 ED Course: 03/19 23:10 Patient arrived in ED. es 23:10 Lux Dill MD is Private Physician. es 23:26 Vitaliy Trujillo MD is Attending Physician. sp4 23:30 Initial lab(s) drawn, by ks, sent to lab. Inserted saline lock: 18 gauge in right jb4 antecubital area, using aseptic technique. Blood collected. 23:52 Triage completed. jb4 23:52 Arm band placed on right wrist. jb4 23:53 Patient has correct armband on for positive identification. Bed in low position. Call jb4 light in reach. Side rails up X 1. Client placed on continuous cardiac and pulse oximetry monitoring. NIBP monitoring applied. ferris wheel attendant on. 23:55 Rosendo Weiss, DEN is Primary Nurse. jb4 03/20 01:20 Jerome Dee MD is Hospitalizing Provider. sp4 Administered Medications: 03/19 23:50 Drug: NS 0.9% IV 1000 ml Route: IV; Rate: 1 bolus; Site: right antecubital; jb4 23:50 Drug: NS 0.9% IV 1000 ml Route: IV; Rate: 1 bolus; Site: right antecubital; jb4 03/20 00:07 Drug: Cyclobenzaprine PO 10 mg Route: PO; jb4 00:07 Drug: Sodium Bicarbonate IVP 1 amp Route: IVP; Site: right antecubital; jb4 00:08 Drug: Sodium Bicarbonate IVP 1 amp Route: IVP; Site: right antecubital; jb4 02:19 Drug: NS 0.9% IV 1000 ml Route: IV; Rate: 150 ml/hr; Site: right antecubital; jb4 02:19 Drug: NS 0.9% IV 1000 ml Route: IV; Rate: 1000 ml; Site: right antecubital; jb4 Medication: 03/19 23:53 VIS not applicable for this client. jb4 Outcome: 03/20 01:21 Decision to Hospitalize by Provider. sp4 03:10 Admitted to Med/surg accompanied by nurse, via wheelchair, room 219, with chart, Report jb4 called to DEN Hernandez 03:10 Condition: stable 03:10 Discharge instructions given to patient, Instructed on the need for admit, Demonstrated understanding of instructions. 03:15 Patient left the ED. kd3 Signatures: Cathy Teran James, RN RN jb4 Anastacia Hamilton RN RN kd3 Vitaliy Trujillo MD MD sp4
--- NOTE | 2023-03-20 01:32 | P.HP ---
Certification for Inpatient Patient admitted to: Inpatient With expected LOS: >2 Midnights Patient will require the following post-hospital care: None Practitioner: I am a practitioner with admitting privileges, knowledge of patient current condition, hospital course, and medical plan of care. Services: Services provided to patient in accordance with Admission requirements found in Title 42 Section 412.3 of the Code of Federal Regulations <Macho Puente Padmini Dominguez - Last Filed: 03/20/23 01:29> Patient History Date of Service: 03/20/23 Reason for admission: Rhabdomyolysis History of Present Illness: Otherwise healthy 22-year-old male presents the emergency department with chief complaint of dark urine. He reports yesterday he did around 300 push-ups and also spent around 12 hours out in the sun, reports muscle cramping and dark urine today. He was evaluated in the emergency department his labs were significant for potassium 3.3 CPK greater than 13,020 AST 1460 ALT 284 INR 1.08 renal function currently spared and within normal limits. Given marked elevation in CPK level ED provider wishes to admit for rhabdomyolysis. - Past Medical/Surgical History Diabetic: No -: History of severe brain concussion related to football -: Insomnia -: Coffeen teeth Psychosocial/ Personal History: Patient lives at home with family - Family History Father -: Stroke - Social History Smoking Status: Never smoker Alcohol use: No CD- Drugs: No Caffeine use: No Place of Residence: Home <Macho Puente Padmini Dominguez - Last Filed: 03/20/23 01:29> Date of Service: 03/20/23 <Jerome Dee - Last Filed: 03/20/23 09:53> Allergies No Known Allergies Allergy (Verified 03/20/23 03:10) Home Medications: NK [No Home Meds] 03/20/23 Review of Systems 10-point ROS is otherwise unremarkable (Muscle cramps) General: Malaise <Macho Puente - Last Filed: 03/20/23 01:29> Physical Examination - Physical Exam General: Alert, In no apparent distress, Oriented x3 HEENT: Atraumatic, PERRLA, Mucous membr. moist/pink, EOMI, Sclerae nonicteric Neck: Supple, 2+ carotid pulse no bruit, No LAD, Without JVD or thyroid abnormality Respiratory: Clear to auscultation bilaterally, Normal air movement Cardiovascular: Regular rate/rhythm, Normal S1 S2 Capillary refill: <2 Seconds Gastrointestinal: Normal bowel sounds, No tenderness Musculoskeletal: No tenderness Integumentary: No rashes Neurological: Normal speech, Normal strength at 5/5 x4 extr, Normal tone, Normal affect - Studies Laboratory Data (last 24 hrs) 03/19/23 03/19/23 08 23:30 23:30 23:30 WBC 6.60 Hgb 15.3 Hct 44.9 Plt Count 234 PT 11.9 INR 1.08 Sodium 138 Potassium 3.3 L BUN 14 Creatinine 0.86 Glucose 102 Total Bilirubin 0.7 AST 1460 H ALT 284 H Alkaline Phosphatase 95 <Macho Puente - Last Filed: 03/20/23 01:29> - Studies Laboratory Data (last 24 hrs) 03/19/23 03/19/23 03/19/23 23:30 23:30 23:30 WBC 6.60 Hgb 15.3 Hct 44.9 Plt Count 234 PT 11.9 INR 1.08 Sodium 138 Potassium 3.3 L BUN 14 Creatinine 0.86 Glucose 102 Total Bilirubin 0.7 AST 1460 H ALT 284 H Alkaline Phosphatase 95 <Jerome Dee - Last Filed: 03/20/23 09:53> Assessment and Plan - Plan Assessment: Rhabdomyolysis Elevated LFTs Plan: Rhabdomyolysis Continue aggressive IV fluids, nephrology consult given marked CPK level, trend CPK, renal function. Elevated LFTs Suspect secondary to rhabdomyolysis, will obtain hepatitis panel, liver ultrasound. DVT PPX: Lovenox Code status: Full Discharge Plan: Home Plan to discharge in: 48 Hours - Advance Directives Does patient have a Living Will: No Does patient have a Durable POA for Healthcare: No - Code Status/Comfort Care Code Status Assessed: Yes (Full code) Critical Care: No Time Spent Managing Pts Care (In Minutes): 55 <Macho Puente - Last Filed: 03/20/23 01:29> Physician Review: Patient Assessed, Agree with Above Assessment and Plan <Jerome Dee - Last Filed: 03/20/23 09:53>
[2023-03-20] MEDS ORDERED: NA CHLORIDE 0.9% 2,000 ML ONE (02:22)
[2023-03-20] MEDS ORDERED: ONDANSETRON 4 MG/2 ML VIAL IV PRN (03:05)
[2023-03-20 03:08] LABS: Specific Gravity 1.023 (1.005-1.030); Urine Bacteria <20 /HPF (<20); Urine Bilirubin NEGATIVE (Negative); Urine Blood 3+ (OVER) (Negative); Urine Clarity Extremely Turbid (Clear); Urine Color Brown (Yellow); Urine Crystals Unidentified Few /HPF (None Seen); Urine Glucose NEGATIVE (Negative); Urine Mucus Slight /HPF (None Seen); Urine Protein 3+ (Negative); Urine RBC <5 /HPF (None Seen); Urine Urobilinogen Normal (Normal)
[2023-03-20 03:24] VITALS: BMI 23.6
[2023-03-20] MEDS: Ringers Lactate 1,000 ML IV SCH ×2 (03:51→08:37)
--- NOTE | 2023-03-20 07:41 | RAD REPORT ---
EXAM DESCRIPTION: US - Liver Only - 03/20/2023 3:55 am CLINICAL HISTORY: Elevated LFTs COMPARISON: No comparisons TECHNIQUE: Sonographic grayscale and color flow images of the upper abdomen were obtained. FINDINGS: Liver demonstrates homogeneous echotexture and normal echogenicity. No focal lesions. Hepa topetal flow appreciated in the main portal vein. The liver demonstrates no findings of intrahepatic biliary dilatation. Visualized aspects of the gallbladder are unremarkable. Spleen is at the upper limit of normal in size, measuring 12.9 centimeter in long axis. The common bile duct is normal measuring 3 mm. IMPRESSION: Normal sonographic evaluation of the liver. Upper limit of normal size of the spleen, 12 .9 cm in long axis.
[2023-03-20 07:56] LABS: Absolute Lymphocytes (CBC) 1.7 K/uL (0.7-4.9); Hematocrit 40.3 % (39.6-49.0); Lymphocytes % 33.7 % (15.3-44.8); MCV 91.4 fL (80-100); MPV 7.7 fL (7.6-11.3); Platelets 186 thou/uL (152-406); RBC Red Blood Cell Count 4.41 M/uL (4.33-5.43)
[2023-03-20 08:34] LABS: ALT/SGPT 276 U/L (16-61); AST/SGOT 1295 U/L (15-37); Alkaline Phosphatase 70 U/L (45-117); BUN Blood Urea Nitrogen 9 mg/dL (7-18); Bicarbonate 26 mEq/L (21-32); Glomerular Filtration Rate 133 ml/min (=/>90); Glucose Level 94 mg/dL (74-106); Potassium 3.4 mEq/L (3.5-5.1); Protein, Total 5.4 g/dL (6.4-8.2); Sodium Level 139 mEq/L (136-145)
[2023-03-20 08:37] LABS: Creatine Phosphokinase > 13020 U/L (39-308)
[2023-03-20] MEDS: ENOXAPARIN 40 MG/0.4 ML SQ SCH (08:37)
[2023-03-20 09:45] LABS: Hepatitis B Core IgM Nonreactive (Nonreactive); Hepatitis B surface AG Interp. Nonreactive (Nonreactive); Hepatitis C Virus Ab Nonreactive (Nonreactive)
[2023-03-20] MEDS: NA CHLORIDE 0.9% 1,000 ML IV SCH ×3 (11:26→20:52)
[2023-03-20 14:46] LABS: Alkaline Phosphatase 81 U/L (45-117); BUN Blood Urea Nitrogen 7 mg/dL (7-18); Bicarbonate 30 mEq/L (21-32); Bilirubin Total 0.7 mg/dL (0.2-1.0); Glomerular Filtration Rate 125 ml/min (=/>90); Glucose Level 95 mg/dL (74-106); Magnesium 2.2 mg/dL (1.6-2.4); Phosphorus 3.1 mg/dL (2.5-4.9); Potassium 3.9 mEq/L (3.5-5.1); Protein, Total 5.7 g/dL (6.4-8.2); Sodium Level 139 mEq/L (136-145)
[2023-03-20 14:47] LABS: ALT/SGPT 333 U/L (16-61); AST/SGOT 1463 U/L (15-37)
[2023-03-20 15:23] LABS: Creatine Phosphokinase > 13020 U/L (39-308)
[2023-03-20] MEDS: HYDROCODONE/APAP 5/325 MG TAB PO PRN (20:52)
--- NOTE | 2023-03-20 20:52 | P.PN ---
Date of Service: 03/21/23 Subjective: Continues to do well. Patient denies any new complaints. Still with some muscle soreness but overall feeling much better. Muscle enzymes still elevated. Vitals: Reviewed Physical Exam: GEN: Alert, oriented, NAD CV: Regular rate & rhythm, no edema Pulm: Nonlabored respiraitons on room air ABD: Soft, nontender, nondistended MSK: Myalgia Integumentary: No rashes Neuro: Normal speech, normal affect Problem List: 1. Rhabdomyolysis PLAN Continue aggressive IV fluids Nephrology was consulted. However standard of care for rhabdo trend CPK as we get a trend that is going downwards I should be able to discharge patient Monitor renal function; urine pH can be also be followed ALT/AST are elevated because these are found in myocytes and are released after muscle breakdown just like CPK. No need to do further liver testing
--- NOTE | 2023-03-20 22:45 | RAD REPORT ---
EXAM DESCRIPTION: US - Renal Ultrasound-Complete - 03/20/2023 10:24 pm CLINICAL HISTORY: Rhabdomyolysis COMPARISON: None FINDINGS: The right kidney measures 10 centimeters. The echotexture appears mildly increased. The left kidney measures 10 cm. The echotexture appears mildly increased Hydronephrosis is not seen. No gross abnormality of bladder IMPRESSION: Mildly increased renal echotexture may indicate acute renal injury
[2023-03-21] MEDS: HYDROCODONE/APAP 5/325 MG TAB PO PRN (01:58)
[2023-03-21] MEDS: NA CHLORIDE 0.9% 1,000 ML IV SCH ×4 (01:59→18:12)
--- NOTE | 2023-03-21 02:03 | CON ---
Date of Consultation: 03/20/2023 Chief Complaint: Rhabdomyolysis. Nephrology consultation is requested for rhabdomyolysis. History Of Present Illness: The patient is a 22-year-old man with no history of any medical problems . He presented to emergency room because of dark urine. He was doing around 300 pushups and also sp ent around 12 hours outside in the sun. Reports severe muscle cramps, dark urine, and generalized trudi dy pain and aches. He was evaluated in the emergency room. He was found to have significantly eleva kim CPK level, up to 13,020. AST was 1460, ALT 284, INR was 1.08. Renal function was evaluated, and creatinine level was within normal limits. The patient was found to have hypokalemia, potassium was 3.3. CPK level was severely elevated, and urine was grossly abnormal, corresponding with rhabdomyol ysis. The patient is started on IV fluid for severe rhabdomyolysis. He is complaining of muscle ach es. Past Medical History: He denies diabetes. He has history of severe brain concussion related to foot ball. He has insomnia and history of wisdom teeth extraction. Family History: Father, stroke. Social History: Denies tobacco, alcohol. Denies drugs. Review of Systems: Constitutional: Denies fever, chills. Eyes: Denies vision changes. Ears, Nose, Mouth, and Throat: Denies sore throat, earache. Respiratory: Denies PND, orthopnea. Cardiovascular: Denies chest pain, palpitation. GI: Denies nausea, vomiting. : Denies dysuria, hematuria. Reports dark brownish color of urine after he exercised and was expo sed to sun. Skeletomuscular: He complains of generalized body ache, muscle ache. All other systems reviewed and all are negative. Physical Examination: General: The patient is alert and oriented x3. Normal affect. Eyes: Anicteric sclerae. EOMI. Ears, Nose, Mouth, and Throat: Oral mucosa moist. No pallor. Neck: Supple. No bruits. Lungs: Clear to auscultation bilaterally. Heart: S1, S2. No pericardial friction rub. Abdomen: Soft, benign, nontender. Extremities: No clubbing, no cyanosis. Neurological: Moving extremities. Cranial nerves intact. Laboratory Data: WBC 6.6, hemoglobin 15.3, platelet count 234,000. INR 1.08. Sodium 138, potassium 3.3, BUN 14, creatinine 0.86, glucose 102. Total bilirubin is 0.7, AST 1460, and ALT 284. Impression And Plan: 1.Severe rhabdomyolysis. The patient also has myalgia. He denies [id number] medication treat ment. Rhabdomyolysis is secondary to physical activity. Plan is to evaluate CPK level and to monito r phosphorus and potassium. 2.Hypokalemia. Replacement with potassium was ordered. 3.The patient will need a liver ultrasound. Liver ultrasound was ordered in view of elevated AST an d ALT, which corresponds with rhabdomyolysis as well. 4.Generalized muscle aches. Check KERRI for immune type of muscle involvement. EB/MODL Voice ID: [id number] Report ID: [id number]
[2023-03-21 04:20] LABS: ALT/SGPT 447 U/L (16-61); AST/SGOT 1703 U/L (15-37); Albumin 3.1 g/dL (3.4-5.0); Alkaline Phosphatase 79 U/L (45-117); BUN Blood Urea Nitrogen 7 mg/dL (7-18); Bicarbonate 29 mEq/L (21-32); Bilirubin Total 0.5 mg/dL (0.2-1.0); Glomerular Filtration Rate 131 ml/min (=/>90); Glucose Level 97 mg/dL (74-106); Protein, Total 6.1 g/dL (6.4-8.2); Sodium Level 138 mEq/L (136-145)
[2023-03-21 04:21] LABS: Creatine Phosphokinase > 13020 U/L (39-308)
[2023-03-21 05:55] LABS: UR PROTEIN 46.3 mg/dL (<11.9); Urine Protein/Creatinine Ratio 0.96 ratio (<0.15)
[2023-03-21] MEDS: ENOXAPARIN 40 MG/0.4 ML SQ SCH (08:27)
[2023-03-21] MEDS: POTASS/SODIUM PHOSPHATE 1 PKT POWD.PACK PO SCH ×2 (09:00→11:28)
[2023-03-21] MEDS ORDERED: NA CHLORIDE 0.9% 1,000 ML IV ONE (10:56)
[2023-03-21] MEDS ORDERED: POTASSIUM CL SA 10 MEQ TAB PO ONE (11:00)
--- NOTE | 2023-03-21 11:57 | PN ---
Date of Progress Note: 03/21/2023 Subjective: The patient was admitted with rhabdomyolysis secondary to exertion. The patient was sta rted on aggressive hydration. No acute kidney injury. The patient responded very well. Physical Examination: Vital Signs: Blood pressure 165/109, pulse of 83, afebrile. The patient had good urine output of 47 00. Chest: Clear to auscultation. Heart: S1, S2. Regular. Abdomen: Soft, nontender. Extremity: No edema. Neurologic: Alert. No focality. Laboratory Data: Hemoglobin 13.6. Sodium 138, potassium 4, bicarb 29, BUN 7, creatinine 0.7, calciu m 7.7, albumin 3.1, corrected calcium 8.5. AST 1700 trending up, ALT 447 trending up, CK still above 13,000. Albumin 3.1. TSH 2.4. Urinalysis; PC ratio 0.9, +3 protein. Current Medications: The patient on IV fluid at 200 per hour and Lovenox. Assessment And Plan: 1.Rhabdomyolysis secondary to workup. The patient continued to have elevation in AST and elevation in CK, which means he still has active breakdown. I am going to continue aggressive hydration. We w ill bolus the patient with 1 L of normal saline and I am going to send for urine drug screen. 2.Disproportion between the quantification of the proteinuria and the dipstick. I am going to go ah ead and send for urine protein electrophoresis and we will follow up. 3.Hypertension. I am going to start the patient on lisinopril and we will follow up the patient. 4.Hypokalemia. We will supplement. 5.Hypocalcemia. Corrected calcium within normal limits. Given the rhabdomyolysis, we will avoid an y calcium supplement as that can cause calcinosis intravascular and we will follow up the patient. Time spent examining the patient [id number], reviewing data, lab, and radiology, placing order, discussing the case with the patient and the nursing staff with the [facility] more than 35 minutes. ELIECER Voice ID: [id number] Report ID: [id number]
[2023-03-21 11:58] LABS: Absolute Lymphocytes (CBC) 1.3 K/uL (0.7-4.9); Hematocrit 40.8 % (39.6-49.0); Lymphocytes % 36.4 % (15.3-44.8); MCV 91.7 fL (80-100); MPV 7.7 fL (7.6-11.3); Platelets 182 thou/uL (152-406); RBC Red Blood Cell Count 4.45 M/uL (4.33-5.43)
[2023-03-21 12:18] LABS: Barbiturates NEGATIVE (NEGATIVE); Benzodiazepines NEGATIVE (NEGATIVE); Cocaine NEGATIVE (NEGATIVE); METHAMPHETAM NEGATIVE (NEGATIVE); Methadone NEGATIVE (NEGATIVE); Opiates NEGATIVE (NEGATIVE); Phencyclidine NEGATIVE (NEGATIVE); THC Cannibis NEGATIVE (NEGATIVE)
[2023-03-21] MEDS: dexAMETHasone 4 MG/ML VIAL IV SCH (20:40)
[2023-03-22] MEDS: NA CHLORIDE 0.9% 1,000 ML IV SCH ×4 (00:51→20:21)
[2023-03-22] MEDS: dexAMETHasone 4 MG/ML VIAL IV SCH ×2 (00:51→08:45)
[2023-03-22] MEDS: HYDROCODONE/APAP 5/325 MG TAB PO PRN ×2 (00:51→20:19)
[2023-03-22] MEDS ORDERED: dexAMETHasone 4 MG/ML VIAL IV SCH (01:00)
[2023-03-22 07:03] LABS: Hematocrit 42.9 % (39.6-49.0); Lymphocytes % 19.4 % (15.3-44.8); MCV 90.3 fL (80-100); MPV 7.7 fL (7.6-11.3); Platelets 226 thou/uL (152-406); RBC Red Blood Cell Count 4.75 M/uL (4.33-5.43)
[2023-03-22 08:16] LABS: Albumin 3.6 g/dL (3.4-5.0); Bilirubin Total 0.5 mg/dL (0.2-1.0); Potassium 4.5 mEq/L (3.5-5.1); Protein, Total 7.1 g/dL (6.4-8.2)
[2023-03-22] MEDS: ENOXAPARIN 40 MG/0.4 ML SQ SCH (08:44)
[2023-03-22] MEDS: lisinopriL 10 MG TAB PO SCH (08:44)
[2023-03-22] MEDS ORDERED: NA CHLORIDE 0.9% 1,000 ML IV ONE (10:04)
--- NOTE | 2023-03-22 15:12 | PN ---
Date of Progress Note: 03/22/2023 Subjective: The patient was admitted to the hospital with rhabdomyolysis secondary to exercise and h eat exertion. The patient has been on hydration. CK continue to be elevated. Currently, LFTs trending up for the last 3 days. Physical Examination: Vital Signs: Blood pressure 138/78, pulse of 87, afebrile. Chest: Clear to auscultation. Heart: S1, S2. Regular. Abdomen: Soft, nontender. Extremities: No edema. Neurologic: No focality. Laboratory Data: Sodium 137, potassium 4.5, bicarb 28, BUN 8, creatinine 0.8, calcium 8.5, AST 1949, ALT 601. CK above 13,000. Albumin 3.6. PC ratio 0.9. Medications: Current medications the patient on include IV fluid at 150 p.o. per hour, KCl. Assessment And Plan: 1.Rhabdomyolysis. Urine drug screen was negative. No kidney injury. I am going to continue aggres sive hydration. I spoke with lab to evaluate if we can do higher dilutional to see if really still e levated or trending down, and we will follow up. 2.Hypertension, controlled, optimal. We started the patient on lisinopril. We will continue to mon itor. 3.Hypokalemia, status post supplement, resolved. 4.Hypocalcemia, resolved. No need for any supplement. In fact, we will avoid supplement given the active rhabdomyolysis. ELIECER Voice ID: [id number] Report ID: [id number]
[2023-03-23] MEDS: NA CHLORIDE 0.9% 1,000 ML IV SCH ×2 (03:38→10:40)
[2023-03-23 04:02] VITALS: O2SAT 98
[2023-03-23 04:14] LABS: Albumin 3.7 g/dL (3.4-5.0); Bilirubin Total 0.4 mg/dL (0.2-1.0); Potassium 3.6 mEq/L (3.5-5.1); Protein, Total 7.1 g/dL (6.4-8.2)
[2023-03-23] MEDS ORDERED: POTASSIUM 25 MEQ EFFERV TAB PO ONE (08:00)
[2023-03-23] MEDS: lisinopriL 10 MG TAB PO SCH (08:29)
[2023-03-23] MEDS: ENOXAPARIN 40 MG/0.4 ML SQ SCH (08:29)
--- NOTE | 2023-03-23 08:31 | P.PN ---
Date of Service: 03/22/23 Subjective: Patient is doing well with no new complaints. Clinical symptoms are stable. Vitals: Reviewed Physical Exam: GEN: Alert, oriented, NAD CV: Regular rate & rhythm, no edema Pulm: Nonlabored respiraitons on room air ABD: Soft, nontender, nondistended MSK: Myalgia Integumentary: No rashes Neuro: Normal speech, normal affect Problem List: 1. Rhabdomyolysis PLAN Continue aggressive IV fluids CPK level is around 85,000. Will continue to trend it. Once we get a downward trend I should be able to discharge patient home. Renal function is stable
--- NOTE | 2023-03-23 08:33 | P.DS ---
Discharge Date: 03/23/23 Reason for Admission: Rhabdomyolysis Brief History of Present Illness: Pt is a 22-year-old male presents the emergency department with chief complaint of dark urine. He reports yesterday he did around 300 push-ups and also spent around 12 hours out in the sun, reports muscle cramping and dark urine today. He was evaluated in the emergency department his labs were significant for potassium 3.3 CPK greater than 13,020 AST 1460 ALT 284 INR 1.08 renal function currently spared and within normal limits. Given marked elevation in CPK level ED provider wishes to admit for rhabdomyolysis. Hospital Course: Patient has done well during hospital stay. CPK level is trending downward. Continue with aggressive hydration at home. Patient is clinically stable for discharge. Vital Signs/Physical Exam: Temp Pulse Resp BP Pulse Ox 98.1 F 86 18 147/69 H 97 03/23/23 04:00 03/23/23 06:00 03/23/23 04:00 03/23/23 06:00 03/23/23 04:00 General: Alert, In no apparent distress, Oriented x3 Laboratory Data at Discharge: WBC 5.10 thou/uL (4.3-10.9) 03/22/23 06:36 Hgb 14.7 g/dL (13.6-17.9) 03/22/23 06:36 Hct 42.9 % (39.6-49.0) 03/22/23 06:36 Plt Count 226 thou/uL (152-406) 03/22/23 06:36 PT 11.9 SECONDS (9.5-12.5) 03/19/23 23:30 INR 1.08 03/19/23 23:30 Sodium 141 mEq/L (136-145) 03/23/23 02:20 Potassium 3.6 mEq/L (3.5-5.1) D 03/23/23 02:20 BUN 11 mg/dL (7-18) 03/23/23 02:20 Creatinine 0.95 mg/dL (0.70-1.30) 03/23/23 02:20 Glucose 99 mg/dL (74-106) 03/23/23 02:20 Phosphorus 3.1 mg/dL (2.5-4.9) 03/20/23 13:30 Magnesium 2.0 mg/dL (1.6-2.4) 03/23/23 02:20 Total Bilirubin 0.4 mg/dL (0.2-1.0) 03/23/23 02:20 AST 1450 U/L (15-37) H 03/23/23 02:20 ALT 623 U/L (16-61) H 03/23/23 02:20 Alkaline Phosphatase 76 U/L (45-117) 03/23/23 02:20 Home Medications: NK [No Home Meds] 03/20/23 Physician Discharge Instructions: -DC IV and DC home -Follow-up with PCP in 1 to 2 weeks -Please call Dr. Alexandre at [phone] if any questions regarding hospital stay -Please call nursing station at [phone] if any nursing or medication questions -Return to the emergency room if symptoms worsen Diet: Regular Activity: Fall precautions Followup: Lux Dill MD [Primary Care Provider] - Time spent managing pt's care (in minutes): 35
[2023-03-23 10:54] VITALS: BP 154/88; TEMP 97.9
--- NOTE | 2023-03-23 20:15 | PN ---
Date of Progress Note: 03/23/2023 Subjective: The patient was admitted to the hospital with severe rhabdo. Toxicity was negative. Th e patient started on aggressive hydration. Patient responded yesterday we had done extra-dilution fo r the CK level today. CK level started trending down. Physical Examination: Vital Signs: Blood pressure 154/88, pulse of 94. Chest: Clear to auscultation. Heart: S1, S2. Regular. Abdomen: Soft, nontender. Extremity: No edema. Neurologic: Alert. No focality. Laboratory Data: Hemoglobin 14.7. Sodium 141, potassium 3.6, bicarb 27, BUN 11, creatinine 0.9, sincere cium 8.5. AST 1450, ALT 623. CK down to 58,000, yesterday 85,000. Current Medications: The patient on, includes: 1.IV fluid. 2.Lovenox. 3.Lisinopril 10 mg. Assessment And Plan: 1.Rhabdomyolysis secondary to heat exertion, on the recovery. Patient asymptomatic. Discontinue IV fluid. Okay from the Renal standpoint for discharge planning. 2.Hypertension, controlled. Continue lisinopril. 3.Hypokalemia. We will continue supplement. 4.Hypocalcemia. No supplement for the time being given the presence of rhabdomyolysis. Patient asy mptomatic. ELIECER Voice ID: [id number] Report ID: [id number]
== END 2023-03-23 15:17 | disposition home or self-care (01) | DRG 558 ==
LOC: ER 23:07 → ERHOLD 03-20 01:23 → 2ND 03-20 02:23
PROVIDERS: ADMIT Internal Medicine; ATTEND Hospitalist
DX: M62.82 Rhabdomyolysis (principal); E87.6 Hypokalemia; G47.00 Insomnia, unspecified; I10 Essential (primary) hypertension; E83.51 Hypocalcemia; R74.01 Elevation of levels of liver transaminase levels; R79.89 Other specified abnormal findings of blood chemistry; Z87.820 Personal history of traumatic brain injury
CPT/HCPCS: 36415; 76705; 76770; 80048; 80053; 80074; 80076; 80307; 81001; 82550; 82570; 83735; 84100; 84156; 84439; 84443; 85025; 85610; 96374; 99285; J1100; J1650; J7030; J7120

== ENCOUNTER 2024-08-20 12:20 | Emergency (ER) | payer SELFPAY ==
[2024-08-20] MEDS ORDERED: DIPHENHYDRAMINE 50 MG/ML VIAL ONE (13:17)
[2024-08-20] MEDS ORDERED: METHYLPREDNISOLONE 125 MG INJ ONE (13:17)
[2024-08-20] MEDS ORDERED: FAMOTIDINE 20 MG/2 ML VIAL IV ONE (13:26)
--- NOTE | 2024-08-20 13:50 | ER ---
Nurse's Notes [facility] Name: Sander Nunez Age: 23 yrs Sex: Male : 2000 Arrival Date: 08/20/2024 Time: 12:20 Bed 12 Private MD: Diagnosis: Rash and other nonspecific skin eruption Presentation: 08/20 12:37 Chief complaint: Patient states: rash all over body X 2 days ago has been taking iw Benadryl and not getting better, feels itchy, burning. Coronavirus screen: At this time, the client does not indicate any symptoms associated with coronavirus-19. Ebola Screen: No symptoms or risks identified at this time. Initial Sepsis Screen: Does the patient meet any 2 criteria? No. Patient's initial sepsis screen is negative. Does the patient have a suspected source of infection? No. Patient's initial sepsis screen is negative. Risk Assessment: Do you want to hurt yourself or someone else? Patient reports no desire to harm self or others. Onset of symptoms was August 18, 2024. 12:37 Method Of Arrival: Ambulatory iw 12:37 Acuity: QUE 3 iw Historical: - Allergies: 12:38 No Known Allergies; iw - PMHx: 12:38 adhd; Seizure; TBI; iw - PSHx: 12:38 None; iw - Immunization history:: Adult Immunizations not up to date. - Infectious Disease History:: Denies. - Social history:: Smoking status: Patient denies any tobacco usage or history of. - Family history:: not pertinent. - Hospitalizations: : No recent hospitalization is reported. Screenin:47 [facility] ED Fall Risk Assessment (Adult) History of falling in the last 3 months, iw including since admission No falls in past 3 months (0 pts) Confusion or Disorientation No (0 pts) Intoxicated or Sedated No (0 pts) Impaired Gait No (0 pts) Mobility Assist Device Used No (0 pt) Altered Elimination No (0 pt) Score/Fall Risk Level 0 - 2 = Low Risk Oriented to surroundings, Maintained a safe environment. Abuse screen: Denies threats or abuse. Denies injuries from another. Nutritional screening: No deficits noted. Tuberculosis screening: No symptoms or risk factors identified. Assessment: 13:47 Reassessment: Patient appears in no apparent distress at this time. Patient and/or iw family updated on plan of care and expected duration. Pain level reassessed. Patient is alert, oriented x 3, equal unlabored respirations, skin warm/dry/pink. Vital Signs: 12:37 BP 146 / 81; Pulse 74; Resp 16; Pulse Ox 100% on R/A; Weight 84.82 kg; Height 5 ft. 8 iw in. ; 12:37 Body Mass Index 28.43 (84.82 kg, 172.72 cm) iw ED Course: 12:23 Patient arrived in ED. sj2 12:29 Arturo Ortega MD is Attending Physician. rn 12:38 Triage completed. iw 12:39 Arm band placed on. iw 13:12 Inserted saline lock: 20 gauge in left forearm, using aseptic technique. Flushed with bc6 10 mL NS. 13:31 Iwona Escobar RN is Primary Nurse. iw Administered Medications: 13:31 Drug: MethylPrednisoLONE IVP 125 mg IVP once Route: IVP; Site: left forearm; iw 13:31 Drug: diphenhydrAMINE IVP 50 mg IVP once Route: IVP; Site: left forearm; iw 13:31 Drug: Famotidine IVP 20 mg IVP once; dilute with 10 mL 0.9% NaCl; give over 2 minutes iw Route: IVP; Site: left forearm; 13:38 Drug: Clindamycin PO 300 mg PO once Route: PO; iw Outcome: 13:50 Discharge ordered by . rn 14:37 Patient left the ED. iw Signatures: Iwona Escobar RN RN Arturo Ortega MD MD rn [place], Breana bc6 [place] Do sj2
--- NOTE | 2024-08-20 13:50 | EDPHYS ---
Physician Documentation [facility] Name: Sander Nunez Age: 23 yrs Sex: Male : 2000 Arrival Date: 08/20/2024 Time: 12:20 Bed 12 Private MD: ED Physician Arturo Ortega HPI: 08/20 13:32 This 23 yrs old Male presents to ER via Ambulatory with complaints of Rash. rn 13:32 The patient's rash thought to be caused by an unknown cause. The rash is located on the rn body diffusely. 13:33 Onset: The symptoms/episode began/occurred 2 day(s) ago. Associated signs and symptoms: rn Pertinent positives: itching, Pertinent negatives: difficulty breathing, fever, Pain swelling of lips, swelling of throat, swelling of tongue, vomiting, wheezing. Severity of symptoms: At their worst the symptoms were moderate in the emergency department the symptoms are unchanged. Treatment given at home: Benadryl. The patient has not experienced similar symptoms in the past. Patient reports rash, diffuse, very itchy and burning sensation. No fever or chills. No preceding illness. Denies sore throat or difficulty swallowing. No difficulty breathing or wheezing. Patient reports new body wash but otherwise no new medication or supplement. No recurrent skin infections.. Historical: - Allergies: 12:38 No Known Allergies; iw - PMHx: 12:38 adhd; Seizure; TBI; iw - PSHx: 12:38 None; iw - Immunization history:: Adult Immunizations not up to date. - Infectious Disease History:: Denies. - Social history:: Smoking status: Patient denies any tobacco usage or history of. - Family history:: not pertinent. - Hospitalizations: : No recent hospitalization is reported. ROS: 13:33 Constitutional: Negative for fever, chills, and weight loss, Cardiovascular: Negative rn for chest pain, palpitations, and edema, Respiratory: Negative for shortness of breath, cough, wheezing, and pleuritic chest pain, Abdomen/GI: Negative for abdominal pain, nausea, vomiting, diarrhea, and constipation, Back: Negative for injury and pain, MS/Extremity: Negative for injury and deformity, Skin: Positive for diffuse erythematous and itchy rash Neuro: Negative for headache, weakness, numbness, tingling, and seizure, Exam: 13:33 Constitutional: This is a well developed, well nourished patient who is awake, alert, rn and in no acute distress. Head/Face: Normocephalic, atraumatic. ENT: Mild tonsillar hypertrophy with exudate on the right side, no stridor, no intraoral lesions. No involvement of the lips or eyes Cardiovascular: Regular rate and rhythm. No pulse deficits. Respiratory: No increased work of breathing, no retractions or nasal flaring. Skin: Diffuse maculopapular rash and at times pustular on the back and legs. Does not involve the soles of feet or palms but is located on the dorsum of the hands and feet. Along neck and axillary regions appears more urticarial. No desquamation or bulla. Vital Signs: 12:37 BP 146 / 81; Pulse 74; Resp 16; Pulse Ox 100% on R/A; Weight 84.82 kg; Height 5 ft. 8 iw in. ; 12:37 Body Mass Index 28.43 (84.82 kg, 172.72 cm) iw MDM: 12:29 Medical Screening Exam initiated rn 13:47 Differential diagnosis: allergic reaction, Folliculitis. Data reviewed: vital signs, rn nurses notes, and as a result, I will discharge patient. Counseling: I had a detailed discussion with the patient and/or guardian regarding the historical points, exam findings, and any diagnostic results supporting the discharge/admit diagnosis, the need for outpatient follow up, to return to the emergency department if symptoms worsen or persist or if there are any questions or concerns that arise at home. Response to treatment: the patient's symptoms have mildly improved after treatment, and as a result, I will discharge patient. Special discussion: I discussed with the patient/guardian in detail that at this point there is no indication for admission to the hospital. It is understood, however, that if the symptoms persist or worsen the patient needs to return immediately for re-evaluation. Based on the history and exam findings, there is no indication for further emergent testing or inpatient evaluation. I discussed with the patient/guardian the need to see the briquette machine operator for further evaluation of the symptoms. 08/20 12:49 Order name: IV Start; Complete Time: 13:12 rn Administered Medications: 13:31 Drug: MethylPrednisoLONE IVP 125 mg IVP once Route: IVP; Site: left forearm; iw 13:31 Drug: diphenhydrAMINE IVP 50 mg IVP once Route: IVP; Site: left forearm; iw 13:31 Drug: Famotidine IVP 20 mg IVP once; dilute with 10 mL 0.9% NaCl; give over 2 minutes iw Route: IVP; Site: left forearm; 13:38 Drug: Clindamycin PO 300 mg PO once Route: PO; iw Disposition Summary: 08/20/24 13:50 Discharge Ordered Notes: Location: Home rn Problem: new rn Symptoms: have improved rn Condition: Stable rn Diagnosis - Rash and other nonspecific skin eruption rn Followup: rn - With: Private Physician - When: As needed - Reason: Recheck today's complaints, Re-evaluation by your physician Discharge Instructions: - Discharge Summary Sheet rn - Rash, Adult rn Forms: - Medication Reconciliation Form rn - Antibiotic pcu rn - Prescription Opioid Use rn - Patient Portal Instructions rn - Leadership Thank You Letter rn Prescriptions: - Clindamycin HCl 300 mg Oral Capsule - take 1 capsule ORAL route every 6 hours for 10 days; 40 capsule; Refills: 0, rn Product Selection Permitted - Hydroxyzine HCl 50 mg Oral Tablet - take 1 tablet ORAL route every 8 hours As needed; 20 tablet; Refills: 0, rn Product Selection Permitted - Prednisone 20 mg Oral Tablet - take 3 tablets ORAL route once daily for 5 days; 15 tablet; Refills: 0, Product rn Selection Permitted Signatures: Iwona Escobar RN RN iw Arturo Ortega MD MD rn
[2024-08-20 14:57] VITALS: BP 146/81; O2SAT 100
== END 2024-08-20 14:37 | disposition home or self-care (01) ==
LOC: ER 12:20
DX: R21 Rash and other nonspecific skin eruption (principal)
CPT/HCPCS: 96374; 96375; 99284; J1200; J2919